=== PATIENT | female | born 1960 | race Caucasian/White ===

== ENCOUNTER 2020-06-05 11:24 | Inpatient (IN) | payer BC, SELFPAY ==
[2020-06-05] VITALS (85 sets, daily range): BP systolic 107–161; BP diastolic 65–104; PULSE 95–141; RESP 0–27; TEMP 36.6–37; O2SAT 94–100; BMI 21.7
--- NOTE | 2020-06-05 11:56 | XR_ITS ---
WS: [id number] Exam: XR chest 1V portable [id number] Date/Time of Exam: 06/05/2020 12:16 PM Reason For Exam: cp Comparison 08/26/2016. Findings: The lungs are clear and fully inflated. Normal cardiomediastinal structures and bony elements. XR/XR chest 1V portable [id number] IMPRESSION: 1. No acute cardiopulmonary finding.
--- NOTE | 2020-06-05 11:56 | ECG_ITS ---
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
--- NOTE | 2020-06-05 12:14 | ED_ITS ---
HPI - Arrhythmia/Palpitations General: Chief Complaint: Arrhythmia/Palpitations Stated Complaint: vomiting/headache/rash/high pulse Time Seen by Provider: 06/05/20 12:00 Source: patient Mode of arrival: ambulatory Limitations: no limitations History of Present Illness: HPI narrative: 60-year-old female who states she has been having vomiting for the last 3 days. States had a headache originally and the headache is since resolved. States she has had continued vomiting and is having abdominal cramping pain she rates a 5 out of 10. She states she has not been able to keep any food down and feels dehydrated. She is also had palpitations and does have a heart rate of 130s here. She denies any fever. She states she has had something similar in the past and had a urinary tract infection with had sepsis at the time as well. Denies any worsening or improving factors. She denies any fever or cough. Associated symptoms: Reports nausea and vomiting Review of Systems Const: Denies: fever(s), chills, body aches or change in appetite Eyes: Denies: blurry vision or eye discomfort ENMT: Denies: throat pain or dental pain Card: Reports: palpitations Resp: Denies: dyspnea GI: Reports: abdominal pain, nausea and vomiting : Denies: dysuria Musc: Denies: neck pain or back pain Skin/Breast: Denies: rash Neuro: Denies: headache(s) Psych: Denies: depression [place]/Lymph: Denies: easy bruising All/Imm: Denies: urticaria Physical Exam Const: COMMON NORMALS: patient oriented x3 GENERAL APPEARANCE: ill appearing HENMT: COMMON NORMALS: normocephalic and atraumatic HEAD & SCALP: normocephalic and atraumatic Eye: COMMON NORMALS: Equal, round and reactive pupils present and EOMs intact bilaterally PUPIL: Yes Equal, round and reactive pupils present Neck/C-Spine: COMMON NORMALS: full ROM and supple Chest: COMMONS NORMALS: normal inspection of the chest and normal palpation of entire chest wall Resp: COMMON NORMALS: normal respiratory effort, No retractions, No use of accessory muscles and clear to auscultation bilaterally AUSCULTATION: clear to auscultation bilaterally Cardio: COMMON NORMALS: regular rhythm and No murmurs present (Cardio) RATE: tachycardic RHYTHM: regular rhythm GI: COMMON NORMALS: Normal to inspection, nondistended, normoactive bowel sounds present, Soft to palpation and no masses PALPATION: Yes Soft to palpation OTHER: diffuse tenderness Extremity: COMMON NORMALS: normal to inspection and full ROM Neuro: COMMON NORMALS: patient oriented x3, moves all extremities and no focal motor deficits Psych: COMMON NORMALS: mental status grossly normal, Normal thought process present and cooperative THOUGHT PROCESS: Normal thought process present Skin: COMMON NORMALS: no rashes or lesions noted and no wounds GENERAL SKIN EXAM: no rashes or lesions noted Course Vital Signs: Vital signs: Vital Signs Temperature 98.2 F 06/05/20 11:54 Pulse Rate 137 H 06/05/20 11:54 Respiratory Rate 18 06/05/20 14:03 Blood Pressure 107/65 06/05/20 11:54 Pulse Oximetry 99 06/05/20 11:54 MDM - Arrhythmia/Palpitations MDM Narrative: Medical decision making narrative: Patient presents here with vomiting and is in DKA. Patient is quite dehydrated here. She has no signs of infection. Patient given IV fluids here and started on insulin drip. Spoke to hospitalist and will admit to the ICU. Lab Data: Labs: Lab Results 06/05/20 06/05/20 06/05/20 Range/Units 12:59 12:59 12:59 WBC 22.0 H (4.0-10.0) 10^3/ uL RBC 5.31 H (4.1-5.3) 10^6/u L Hgb 15.9 H (11.5-15.3) g/dL Hct 50.6 H (37.0-47.0) % MCV 95.3 (81-99) fL MCH 29.9 (28.0-34.0) pg MCHC 31.4 (30.0-36.0) g/dL RDW 12.7 (12.1-15.1) % Plt Count 460 H (130-400) 10^3/c mm MPV 13.4 H (7.4-10.4) fL Neut % (Auto) 90.9 % Lymph % (Auto) 2.8 % [facility] % (Auto) 5.2 % Eos % (Auto) 0.0 % Baso % (Auto) 0.2 % Neut # (Auto) 20.02 H (1.8-7.7) 10^3/u L Lymph # (Auto) 0.6 L (0.8-4.8) 10^3/u L [facility] # (Auto) 1.1 H (0.2-0.9) 10^3/u L Eos # (Auto) 0.0 (0.0-0.8) 10^3/u L Baso # (Auto) 0.0 (0.0-0.1) 10^3/u L Nucleated RBC % (a uto) 0 % Nucleated RBCs # 0.0 /100WBC Sodium 141 (136-145) mmol/L Potassium 4.0 (3.5-5.1) mmol/L Chloride 94 L (98-107) mmol/L Carbon Dioxide 8 L* (22-29) mmol/L Anion Gap 43.0 H (5-19) BUN 48 H (8-23) mg/dL Creatinine 1.5 H (0.5-0.9) mg/dL GFR Calculation 35.4 L (90-130) mL/min Glucose 640 H* (65-115) mg/dL Calculated Osmolal ity 335 H (285-295) mOsm/k g Calcium 10.5 (8.5-10.5) mg/dL Phosphorus 5.7 H (2.5-4.5) mg/dL Magnesium 3.0 H (1.7-2.3) mg/dL Total Bilirubin 0.2 (0.15-1.2) mg/dL AST 8 (0-32) U/L ALT 28 (0-33) U/L Alkaline Phosphata se 175 H (35-105) IU/L Total Protein 8.8 H (6.6-8.7) g/dL Albumin 4.5 (3.5-5.2) g/dL Globulin 4.3 (1.3-4.6) g/dL Lipase 23 (13-60) U/L Serum Ketones Positive H (Negative) Imaging Data^: CXR: Attestation: I personally reviewed and interpreted this imaging study as follows: Radiologist's impression: [address] [address] XRay Report Signed Patient: Madelyn Spencer Unit #: [id number] : 1960 Age/Sex: 60 / F ADM Date: 06/05/20 Loc: ER Room/Bed: Attending Dr: Ordering Provider/Ordering MD: Cristela Mendes MD Date of Service: 06/05/20 Procedure(s): XR chest 1V portable [id number] Accession Number(s): [id number] Report Number: [id number] WS: [id number] Exam: XR chest 1V portable [id number] Date/Time of Exam: 06/05/2020 12:16 PM Reason For Exam: cp Comparison 08/26/2016. Findings: The lungs are clear and fully inflated. Normal cardiomediastinal structures and bony elements. XR/XR chest 1V portable [id number] IMPRESSION: 1. No acute cardiopulmonary finding. Critical Care Time Critical Care Time: Critical Care Time: Yes Total Critical Care Time: 36 Attestation: This case had a high probability of a clinically significant, sudden, or life threatening deterioration of this patient's condition which required my full and direct attention, intervention and personal management. Discharge Plan Discharge Patient Disposition: Admitted As Inpatient Admit Provider: Fredo Mcnair Clinical Impression: Diabetic ketoacidosis Qualifiers: Diabetes mellitus complication detail: without coma Condition: Stable Referrals: Kayode Schilling DO [Family Provider] - Coding Level of Care Code ED Nuclear Equipment Research Engineer for Chg Fwd Exam Comprehensive
[2020-06-05] MEDS: ondansetron 2 mg/ML SDV 2 mL 4 MG IVP ×3 (13:15→23:38)
[2020-06-05 13:35] LABS: Alanine Aminotransferase 28 U/L (0-33); Albumin Level 4.5 g/dL (3.5-5.2); Alkaline Phosphatase 175 IU/L (35-105); Aspartate Amino Transferase 8 U/L (0-32); Blood Urea Nitrogen 48 mg/dL (8-23); Calcium 10.5 mg/dL (8.5-10.5); Chloride 94 mmol/L (98-107); Globulin 4.3 g/dL (1.3-4.6); Glomerular Filtration Rate 35.4 mL/min (90-130); Lipase 23 U/L (13-60); Osmolality Calculated 335 mOsm/kg (285-295); Sodium 141 mmol/L (136-145); Total Bilirubin 0.2 mg/dL (0.15-1.2); Total Protein 8.8 g/dL (6.6-8.7)
[2020-06-05 13:36] LABS: Basophils % 0.2 %; Hematocrit 50.6 % (37.0-47.0); Hemoglobin 15.9 g/dL (11.5-15.3); Lymphocytes # 0.6 10^3/uL (0.8-4.8); Lymphocytes % 2.8 %; Mean Corpuscular HGB Conc 31.4 g/dL (30.0-36.0); Mean Corpuscular Hemoglobin 29.9 pg (28.0-34.0); Mean Corpuscular Volume 95.3 fL (81-99); Mean Platelet Volume 13.4 fL (7.4-10.4); Monocytes # 1.1 10^3/uL (0.2-0.9); Monocytes % 5.2 %; Neutrophils # 20.02 10^3/uL (1.8-7.7); Neutrophils % 90.9 %; Nucleated Red Blood Cells % 0 %; Platelet Count 460 10^3/cmm (130-400); Red Blood Count 5.31 10^6/uL (4.1-5.3); Red Cell Distribution Width 12.7 % (12.1-15.1)
[2020-06-05 13:40] LABS: Glucose 640 mg/dL (65-115)
[2020-06-05 13:41] LABS: Carbon Dioxide 8 mmol/L (22-29)
[2020-06-05] MEDS: sodium chloride 0.9% 1,000 ML 999 ML IV ×3 (14:00→17:33)
[2020-06-05] MEDS: HYDROmorphone 1 mg/mL INJ 1 mL 0.5 MG IVP (14:03)
[2020-06-05 14:19] LABS: Ketone (Acetest) Serum Positive (Negative)
[2020-06-05 14:21] LABS: Arterial Blood Gas Hematocrit 47.8 % (37-47); Blood Gas Allen Test Pos; Blood Gas Operator Identificat GD; Blood Gas Sample Site Radial, right; Blood Gas Sample Type Arterial; HCO3 ABG 6.6 mmol/L (22-26); Oxygen Device ROOM AIR
[2020-06-05 14:24] LABS: Phosphorus 5.7 mg/dL (2.5-4.5)
--- NOTE | 2020-06-05 15:40 | PC.NURSE ---
TO ICU at 1500, VSS, Patient AAOx4, complains of generalized weakness, chills, n/v.
[2020-06-05 15:43] LABS: Add Urine Microscopic? YES; Bilirubin Urine Neg (Negative); Blood Urine 2+ (Negative); Glucose Urine UA 4+ (Normal); Ketones Urine 3+ (Negative); Leukocyte Esterase Urine Negative (Negative); Nitrate Urine Negative (Negative); Protein Urine Neg (Negative); Urine Appearance Hazy (CLEAR); Urine Color Yellow (Yellow); Urobilinogen Urine Norm (Negative); pH Urine 5 (5-7)
[2020-06-05 15:52] LABS: Add Urine Culture? No; Bacteria Urine TRACE /hpf; RBC Urine 0-4 /hpf (0-2)
[2020-06-05 16:16] LABS: Lactate (Lactic Acid level) 2.4 mmol/L (0.5-2.2)
[2020-06-05] MEDS: ondansetron 2 mg/ML SDV 2 mL 8 MG IVP (16:35)
[2020-06-05] MEDS: phenol oral Spray 177 mL 5 SPRAY MUCOUS MEM (17:32)
[2020-06-05] MEDS: heparin 5,000 unit/mL INJ 1 mL 5000 UNIT SUBCUT (17:33)
--- NOTE | 2020-06-05 18:04 | PM.HP ---
Providers/Chief Complaint Admitting Physician: Fredo Mcnair Chief Complaint: vomiting/headache/rash/high pulse History of Present Illness Madelyn Spencer is a 60 year old female With a past medical history significant for diabetes mellitus who is presenting to the hospital with 3 day history of nausea, vomiting and abdominal pain. Patient stated that she is unable to take any p.o. intake during this time. Denies any fevers however did note chills. Has been complaining of throat soreness primarily after emesis. Noted last a1c to be > 13%. Stated she was previously on insulin regimen however stopped taking this a few months ago. Patient's laboratory workup showed a WBC of 22.0, hemoglobin of 15.9, hematocrit of 50.6 and a platelet count of 460. sodium 141, potassium 4.0, chloride 94, bicarb 8, BUN 48 and creatinine of 1.5. Glucose was elevated at 640. patient's anion gap was 43.0. Lactic acid was elevated at 2.4. Phosphorus of 5.7 and magnesium of 3.0. AST of 8, ALT of 28 and alkaline phosphatase of 175. Lipase of 23. urinalysis showed positive ketones however negative for leukocyte esterase or nitrites. Serum ketones was positive. Arterial blood gases showed a pH of 7.20, pCO2 of 17, PO2 125 and a bicarb 6.6. Of note chest x-ray was also performed which did not show any evidence of acute abnormality.Patient was started on IV fluids in addition to IV insulin and admitted to the intensive care unit. Review of Systems General: Reports: 10 or more systems reviewed and unremarkable except in HPI and below Medications/Allergies Home Medications Medication Instructions Recorded Confirmed Last Taken Type Tylenol 2 cap PO PRN 06/05/20 06/05/20 06/04/20 History hydromorphone 8 mg PO Q4H PRN 06/05/20 06/05/20 06/04/20 History insulin detemir U-100 [Levemir See Rx Instructions .ROUTE .COMPLEX 06/05/20 06/05/20 Unknown History FlexTouch U-100 Insuln] ondansetron HCl [Zofran] 4 mg PO Q4H PRN 06/05/20 06/05/20 06/05/20 05:30 History Allergies Allergy/AdvReac Type Severity Reaction Status Date / Time morphine Allergy ADR-Nausea Verified 06/05/20 13:11 Vitals/I&O/Wt Last Vital Signs Temp 97.8 F 06/05/20 15:30 Pulse 141 H 06/05/20 16:30 Resp 15 06/05/20 16:30 BP 119/73 06/05/20 16:30 Pulse Ox 99 06/05/20 16:30 06/05/20 06/05/20 06/05/20 06:59 14:59 22:59 Intake Total 1000 / 1000 Output Total 600 / 600 Balance 400 / 400 Weight last 48 hrs Weight 52.163 kg Physical Exam Const: COMMON NORMALS: no limitations and alert GENERAL APPEARANCE: cooperative, comfortable and in distress (Due to nausea ) HENMT: COMMON NORMALS: normocephalic, atraumatic and hearing grossly normal bilaterally HEAD & SCALP: normal to inspection FACE & SINUS: normal facial exam NOSE: Normal external nose present Eye: COMMON NORMALS: Equal, round and reactive pupils present Neck/C-Spine: COMMON NORMALS: full ROM, no lymphadenopathy and supple Resp: COMMON NORMALS: normal respiratory effort, No retractions, No use of accessory muscles and clear to auscultation bilaterally Cardio: COMMON NORMALS: no JVD, regular rate, regular rhythm, S1 normal heart sound present and S2 normal heart sound present GI: COMMON NORMALS: Soft to palpation, non-tender, No hepatosplenomegaly present and no masses Psych: COMMON NORMALS: mental status grossly normal, Normal thought process present, cooperative, normal affect, speech normal, activity/motor behavior normal and denies hallucinations Data : 06/05/20 12:59 06/05/20 12:59 Micro: Microbiology 06/05/20 12:59 Blood Culture - Preliminary Blood SPECIMEN COLLECTED A&P Assessment and plan (1) Diabetic ketoacidosis: - PH - 7.20 , PCO2- 17, Bicarbonate 6.6 - Anion gap - 43.0 , Positive serum ketones - Continue insulin gtt per protocol - Q1hr Blood sugar checks - Check BMP Q4hr - Once Blood sugar < 250 change IVF to D5 0.45% at 100 cc/hr - add 20 meq of potassium if less than 3.5. - Give additional IVF bolus - Total 3 given - Check Magnesium in AM - Once anion gap closed - will transition to Insulin SQ - Remain NPO for now - WIll consult agricultural extension educator Status: Acute Qualifiers: Diabetes mellitus complication detail: without coma (2) Acute renal failure (ARF): - Creatinine 1.5 - Likely due to dehydration, pre-renal - Repeat BMP in AM - Monitor u/o Status: Acute (3) High anion gap metabolic acidosis: Management as noted above for DKA Status: Acute (4) Leukocytosis: - Likely reactive - Repeat BMP in am - UA and chest x-ray - negative - Blood culture x 2 - Monitor off abx unclear febrile or worsening Leukocytosis Status: Acute (5) Intractable nausea and vomiting: Zofran 4 mg IV Q6hr PRN for nausea If no improvement will ad reglan Status: Acute (6) Neuropathy associated with endocrine disorder: Not currently on any home meds Status: Acute (7) Non compliance w medication regimen: Stressed need to continue home regimen of insulin Status: Acute Attestations Medical Necessity Statement*: 60-year-old female admitted to the hospital and diabetic ketoacidosis requiring insulin drip. Anticipate over 2 midnights stay in hospital for treatment. Time Spent in Patient Care: Greater than 35 minutes Coding Level of Care Code Acute Gang Investigator for g Fwd Exam Comprehensive Diagnoses Diabetic ketoacidosis E11.10 Diabetes mellitus complication detail: without coma Acute renal failure (ARF) N17.9 High anion gap metabolic acidosis E87.2 Leukocytosis D72.829 Intractable nausea and vomiting R11.2 Neuropathy associated with endocrine disorder E34.9; G63 Non compliance w medication regimen Z91.14
[2020-06-05 18:29] LABS: Anion Gap 22.4 (5-19); Blood Urea Nitrogen 39 mg/dL (8-23); Calcium 9.3 mg/dL (8.5-10.5); Carbon Dioxide 14 mmol/L (22-29); Chloride 116 mmol/L (98-107); Glomerular Filtration Rate 45.8 mL/min (90-130); Glucose 262 mg/dL (65-115); Osmolality Calculated 326 mOsm/kg (285-295); Potassium 3.4 mmol/L (3.5-5.1); Sodium 149 mmol/L (136-145)
[2020-06-05 18:30] LABS: Glucose Point of Care 214 mg/dL (70-110)
[2020-06-05 18:30] LABS: Glucose Point of Care 421 mg/dL (70-110)
[2020-06-05 18:30] LABS: Glucose Point of Care 267 mg/dL (70-110)
[2020-06-05 18:30] LABS: Glucose Point of Care 465 mg/dL (70-110)
[2020-06-05] MEDS: famotidine 20 mg/2 mL INJ IVP (18:58)
[2020-06-05] MEDS: D5-NS 0.45% + KCL 20 mEq 20 MEQ/1,000 ML BAG 100 MEQ IV (18:58)
[2020-06-05 19:22] LABS: Glucose Point of Care 132 mg/dL (70-110)
--- NOTE | 2020-06-05 19:35 | PC.NURSE ---
Called and spoke with Dr Young, VO of Insulin drip to decrease to 4 units/hr due to significant decreased in accucheck
[2020-06-05 20:18] LABS: Glucose Point of Care 111 mg/dL (70-110)
--- NOTE | 2020-06-05 21:12 | PC.NURSE ---
Blood drawn, sent to lab, will draw again in 4 hours, Dr Ramachandran states to reduce insulin drip to 2 units per hour, leave D5 1/2NS with 20KCL at 100ml/hour
[2020-06-05 21:54] LABS: Anion Gap 16.4 (5-19); Blood Urea Nitrogen 28 mg/dL (8-23); Calcium 8.8 mg/dL (8.5-10.5); Carbon Dioxide 18 mmol/L (22-29); Chloride 120 mmol/L (98-107); Glomerular Filtration Rate 63.9 mL/min (90-130); Glucose 131 mg/dL (65-115); Osmolality Calculated 319 mOsm/kg (285-295); Potassium 3.4 mmol/L (3.5-5.1); Sodium 151 mmol/L (136-145)
--- NOTE | 2020-06-05 22:59 | PC.NURSE ---
Insulin Gtt stopped at this time as ordered by Dr. Ramachandran
[2020-06-05] MEDS: potassium chloride ER 10 mEq Tablet 40 MEQ PO (23:11)
[2020-06-05 23:45] LABS: Glucose Point of Care 172 mg/dL (70-110)
--- NOTE | 2020-06-05 23:55 | PC.NURSE ---
Called and spoke with Dr Ramachandran, states to continue infusion of D5 1/2NS with 20kcl at 30ml/hr with 4 units of Novolog subq, recheck blood sugar in one hour
[2020-06-06] VITALS (109 sets, daily range): BP systolic 117–174; BP diastolic 66–109; PULSE 83–129; RESP 0–34; TEMP 36.8–37.3; O2SAT 94–100
[2020-06-06] MEDS: acetaminophen 325 mg Tablet 650 MG PO (00:06)
[2020-06-06] MEDS: heparin 5,000 unit/mL INJ 1 mL 5000 UNIT SUBCUT ×3 (01:15→18:18)
[2020-06-06 01:44] LABS: Blood Urea Nitrogen 22 mg/dL (8-23); Carbon Dioxide 16 mmol/L (22-29); Chloride 119 mmol/L (98-107); Glomerular Filtration Rate 73.2 mL/min (90-130); Glucose 224 mg/dL (65-115); Osmolality Calculated 320 mOsm/kg (285-295); Sodium 150 mmol/L (136-145)
[2020-06-06 04:04] LABS: Basophils % 0.1 %; Hematocrit 45.1 % (37.0-47.0); Lymphocytes # 0.6 10^3/uL (0.8-4.8); Lymphocytes % 3.6 %; Mean Corpuscular Hemoglobin 29.7 pg (28.0-34.0); Mean Corpuscular Volume 95.8 fL (81-99); Mean Platelet Volume 12.4 fL (7.4-10.4); Monocytes # 0.9 10^3/uL (0.2-0.9); Monocytes % 5.7 %; Neutrophils # 14.29 10^3/uL (1.8-7.7); Neutrophils % 90.1 %; Nucleated Red Blood Cells % 0 %; Platelet Count 392 10^3/cmm (130-400); Red Blood Count 4.71 10^6/uL (4.1-5.3); Red Cell Distribution Width 12.8 % (12.1-15.1); White Blood Count 15.9 10^3/uL (4.0-10.0)
[2020-06-06 04:15] LABS: Alanine Aminotransferase 18 U/L (0-33); Albumin Level 3.7 g/dL (3.5-5.2); Alkaline Phosphatase 135 IU/L (35-105); Anion Gap 16.1 (5-19); Aspartate Amino Transferase 8 U/L (0-32); Blood Urea Nitrogen 21 mg/dL (8-23); Calcium 9.2 mg/dL (8.5-10.5); Carbon Dioxide 19 mmol/L (22-29); Chloride 120 mmol/L (98-107); Globulin 3.4 g/dL (1.3-4.6); Glomerular Filtration Rate 63.9 mL/min (90-130); Glucose 226 mg/dL (65-115); Osmolality Calculated 322 mOsm/kg (285-295); Potassium 4.1 mmol/L (3.5-5.1); Sodium 151 mmol/L (136-145); Total Bilirubin 0.3 mg/dL (0.15-1.2); Total Protein 7.1 g/dL (6.6-8.7)
[2020-06-06] MEDS: sodium chloride 0.45% 1,000 ML 50 ML IV (05:39)
[2020-06-06] MEDS: ondansetron 2 mg/ML SDV 2 mL 4 MG IVP ×2 (05:44→07:39)
--- NOTE | 2020-06-06 06:55 | PC.NURSE ---
Report given to SARAH Hill in SBAR format
[2020-06-06 07:27] LABS: Glucose Point of Care 185 mg/dL (70-110)
[2020-06-06] MEDS: famotidine 20 mg/2 mL INJ IVP ×2 (07:39→18:17)
[2020-06-06] MEDS: metoclopramide 5 mg/mL SDV 2 mL 10 MG IVP (10:30)
--- NOTE | 2020-06-06 10:41 | PC.NURSE ---
received report on pt that one bottle of cultures came back positive. This was reported to Dr. da silva who was on the floor at the time.
[2020-06-06 11:15] LABS: Glucose Point of Care 177 mg/dL (70-110)
[2020-06-06 11:15] LABS: Glucose Point of Care 109 mg/dL (70-110)
[2020-06-06 11:37] LABS: Glucose Point of Care 129 mg/dL (70-110)
--- NOTE | 2020-06-06 11:54 | CTR_ITS ---
PROCEDURE INFORMATION: Exam: CT Abdomen And Pelvis With Contrast Exam date and time: 06/06/2020 6:25 PM Age: 60 years old Clinical indication: Patient HX: Intractable abdominal pain nausea and vomiting. TECHNIQUE: Imaging protocol: Computed tomography of the abdomen and pelvis with intravenous contrast. Radiation optimization: All CT scans at this facility use at least one of these dose optimization techniques: automated exposure control; mA and/or kV adjustment per patient size (includes targeted exams where dose is matched to clinical indication); or iterative reconstruction. Contrast material: OMNI 300; Contrast volume: 75 ml; Contrast route: INTRAVENOUS (IV); COMPARISON: CR Hip 2-3v LEFT wwo Pelv* [id number] 03/05/2017 4:11 PM RADIATION DOSE METRICS: Total DLP (mGy-cm): 269.06 FINDINGS: Lungs: Limited assessment of the lung bases fails to reveal evidence for active cardiopulmonary process. Liver: Unremarkable. No mass. Gallbladder and bile ducts: Normal. No calcified stones. No ductal dilation. Pancreas: Marked atrophy of the pancreas. No visible pancreatic ductal ectasia. Spleen: Normal. No splenomegaly. Adrenal glands: Normal. No mass. Kidneys and ureters: Heterogenous contrast enhancement the right kidney suggest acute pyelonephritis. No visible renal abscess. Cortical scarring of both the superior poles of the left and right kidney. No visible hydronephrosis or perinephric fluid. Stomach and bowel: Mild diverticulosis coli without visible evidence of acute diverticulitis. Nonobstructive bowel pattern. No visible adynamic or reactive ileus. Appendix: No evidence of appendicitis. Intraperitoneal space: No visible evidence of mesenteric lymphadenitis or active mesenteritis/panniculitis. Vasculature: The abdominal aorta is nonaneurysmal. Moderate arterial sclerotic disease. Lymph nodes: No current visible evidence of active mesenteric or retroperitoneal lymphadenopathy. Urinary bladder: Marked diffuse urinary bladder wall thickening with mucosal enhancement. No gross filling defect. Finding would be consistent with acute cystitis. Reproductive: Status post hysterectomy. Bones/joints: Old compression fracture T12 with estimated 30-40% anterior height loss. No acute osseous abnormality. Facet arthrosis. Soft tissues: Unremarkable. CT/CT abdomen pelvis w con* [id number] IMPRESSION: 1. Findings consistent with acute right pyelonephritis. 2. Findings consistent with acute cystitis. 3. Other nonurgent, nonemergent, chronic, and age related findings as detailed in text above. Radiation Dose CTDIVOL = (mGy): DLP = 269.06 (mGy-cm)
[2020-06-06 12:13] LABS: Alanine Aminotransferase 17 U/L (0-33); Albumin Level 3.8 g/dL (3.5-5.2); Alkaline Phosphatase 140 IU/L (35-105); Anion Gap 22.7 (5-19); Aspartate Amino Transferase 12 U/L (0-32); Blood Urea Nitrogen 17 mg/dL (8-23); Carbon Dioxide 16 mmol/L (22-29); Chloride 114 mmol/L (98-107); Globulin 3.8 g/dL (1.3-4.6); Glucose 154 mg/dL (65-115); Osmolality Calculated 313 mOsm/kg (285-295); Potassium 3.7 mmol/L (3.5-5.1); Sodium 149 mmol/L (136-145); Total Bilirubin 0.3 mg/dL (0.15-1.2); Total Protein 7.6 g/dL (6.6-8.7)
--- NOTE | 2020-06-06 12:17 | PC.NURSE ---
messaged Dr Mcnair regarding pt hypo bowel sounds, complaints of abdominal pain and she states that she is not passing gas. Also asked if he wants records from [facility] from her last septic stay. New orders received.
[2020-06-06] MEDS: dextrose 5% 1,000 ML 75 ML IV (12:37)
[2020-06-06] MEDS: metoprolol tartrate 25 mg Tablet PO ×2 (13:15→18:18)
[2020-06-06] MEDS: cefTRIAXone 2,000 MG in sodium chloride 0.9% (plus) 50 ML 100 MG IV (13:52)
--- NOTE | 2020-06-06 14:41 | P.PN_ITS ---
Subjective Subjective: Interval history: Continued to have nausea through out the day with abdominal pain. No fever, chills, nausea or vomiting. no diarrhea or constipation Vitals/I&O/Wt Last Vital Signs Temp 98.8 F 06/06/20 11:30 Pulse 120 H 06/06/20 13:30 Resp 22 H 06/06/20 13:30 BP 161/94 06/06/20 13:30 Pulse Ox 98 06/06/20 13:30 06/05/20 06/06/20 06/06/20 22:59 06:59 14:59 Intake Total 3632.333 / 3632.333 280 / 280 Output Total 1325 / 1325 560 / 560 Balance 2307.333 / 2307.333 -280 / -280 Weight last 48 hrs Weight 52.163 kg Physical Exam Const: COMMON NORMALS: no limitations and alert GENERAL APPEARANCE: cooperative, comfortable and in distress (Due to nausea ) HENMT: COMMON NORMALS: normocephalic, atraumatic, hearing grossly normal bilaterally and Normal external nose present HEAD & SCALP: normal to inspection, normocephalic and atraumatic FACE & SINUS: normal facial exam NOSE: Normal external nose present Eye: COMMON NORMALS: Equal, round and reactive pupils present PUPIL: Yes Equal, round and reactive pupils present Neck/C-Spine: COMMON NORMALS: full ROM, no lymphadenopathy, supple and no JVD Resp: COMMON NORMALS: normal respiratory effort, No retractions, No use of accessory muscles and clear to auscultation bilaterally AUSCULTATION: clear to auscultation bilaterally Cardio: COMMON NORMALS: no JVD, regular rate, regular rhythm, S1 normal heart sound present and S2 normal heart sound present RATE: regular rate RHYTHM: regular rhythm HEART SOUNDS: S1 normal heart sound present and S2 normal heart sound present GI: COMMON NORMALS: Soft to palpation, non-tender, No hepatosplenomegaly present and no masses PALPATION: Yes Soft to palpation and Yes No hepatosplenomegaly present Neuro: SENSORIUM/ORIENTATION: Yes alert Psych: COMMON NORMALS: mental status grossly normal, Normal thought process present, cooperative, normal affect, speech normal, activity/motor behavior normal and denies hallucinations SPEECH: Yes normal speech THOUGHT PROCESS: Normal thought process present Data : 06/06/20 03:30 06/06/20 17:30 Micro: Microbiology 06/06/20 11:27 Blood Culture - Preliminary Blood SPECIMEN COLLECTED 06/06/20 11:33 Blood Culture - Preliminary Blood SPECIMEN COLLECTED 06/05/20 17:55 Blood Culture - Preliminary Blood Gram Negative Rods 06/05/20 12:59 Blood Culture - Preliminary Blood Gram Negative Rods A&P Assessment and plan (1) Diabetic ketoacidosis: - Anion gap closed - Long acting insulin given - Transitioned to SQ insulin - ACHS checks - A1c in Am - Diabetic diet Status: Acute Qualifiers: Diabetes mellitus complication detail: without coma (2) Acute renal failure (ARF): Resolved Status: Acute (3) High anion gap metabolic acidosis: Resolved. Status: Acute (4) Leukocytosis: - Blood culture 1/2 set showed gram negative rods - On Rocephin 2g IV daily - Repeat blood culture in am - Leukocytosis improving. Status: Acute (5) Intractable nausea and vomiting: Radha undiagnosed gastroparesis Reglan PRN - may consider scheduling doses with meals Due to abdominal pian - will obtain CT abd/pelvis w IV contrast Patient unable to tolerate PO contrast Status: Acute (6) Neuropathy associated with endocrine disorder: Not currently on any home meds Status: Acute (7) Non compliance w medication regimen: Stressed need to continue home regimen of insulin Status: Acute Attestations Medical Necessity Statement*: Patient with intractable nausea, abdominal pain and resolving DKA will require further hospitalization for management. Coding Level of Care Code Acute Family Law Attorney for g Fwd Diagnoses Diabetic ketoacidosis E11.10 Diabetes mellitus complication detail: without coma Acute renal failure (ARF) N17.9 High anion gap metabolic acidosis E87.2 Leukocytosis D72.829 Intractable nausea and vomiting R11.2 Neuropathy associated with endocrine disorder E34.9; G63 Non compliance w medication regimen Z91.14
[2020-06-06 15:18] LABS: Glucose Point of Care 235 mg/dL (70-110)
[2020-06-06 15:18] LABS: Glucose Point of Care 147 mg/dL (70-110)
--- NOTE | 2020-06-06 15:51 | PC.NURSE ---
Pt requesting something for her nerves Dr. Mcnair notified. States he will put orders in.
[2020-06-06 16:15] LABS: Glucose Point of Care 124 mg/dL (70-110)
--- NOTE | 2020-06-06 16:58 | PC.NURSE ---
MEssaged Dr. Mcnair to ask if she could do her CT of abdomen without contrast do to her being to nauseated.
--- NOTE | 2020-06-06 17:21 | PC.NURSE ---
New order for CT to be done with IV contrast. STaff attempted to call CT, no answer.
[2020-06-06 17:46] LABS: Glucose Point of Care 118 mg/dL (70-110)
[2020-06-06 17:56] LABS: Anion Gap 16.4 (5-19); Blood Urea Nitrogen 13 mg/dL (8-23); Calcium 9.2 mg/dL (8.5-10.5); Carbon Dioxide 20 mmol/L (22-29); Chloride 111 mmol/L (98-107); Glucose 136 mg/dL (65-115); Osmolality Calculated 300 mOsm/kg (285-295); Potassium 3.4 mmol/L (3.5-5.1); Sodium 144 mmol/L (136-145)
[2020-06-06 18:27] LABS: Glucose Point of Care 173 mg/dL (70-110)
[2020-06-06] MEDS: iohexol 300 mg/mL 100 mL Btl IV (18:51)
[2020-06-06] MEDS: insulin glargine 100 units/1 mL 5 UNIT SUBCUT (19:15)
[2020-06-06] MEDS: potassium chloride premix 100 ML 50 MEQ IV (19:22)
[2020-06-06] MEDS: sodium chloride 0.45% 1,000 ML 75 ML IV (19:23)
[2020-06-06] MEDS: ALPRAZolam 0.25 mg Tablet PO (20:07)
[2020-06-06 21:20] LABS: Glucose Point of Care 225 mg/dL (70-110)
[2020-06-07] VITALS (8 sets, daily range): BP systolic 120–179; BP diastolic 80–115; PULSE 81–116; RESP 14–22; TEMP 36.8–37.7; O2SAT 93–98
--- NOTE | 2020-06-07 00:56 | PC.NURSE ---
Patient SBP has maintained from 160's-170's within the last couple of hours. MD Madie maxillofacial surgeon notified. New v/o for Metoprolol IVP ONCE given, with recheck BP in 1Hr.
[2020-06-07] MEDS: heparin 5,000 unit/mL INJ 1 mL 5000 UNIT SUBCUT ×4 (01:04→22:56)
[2020-06-07] MEDS: metoprolol tartrate 1 mg/1 mL SDV 5 mL 2.5 MG IV (01:09)
[2020-06-07] MEDS: amlodipine 5 mg Tablet PO ×2 (02:10→08:43)
--- NOTE | 2020-06-07 02:30 | PC.NURSE ---
Patient Transferred to C[facility] Rm 106, by wheelchair. Tolerated well. Personal belongings at bedside. Report given to SARAH House Patient verbalized no further needs at this time.
[2020-06-07] MEDS: metoclopramide 5 mg/mL SDV 2 mL 10 MG IVP (02:33)
--- NOTE | 2020-06-07 02:38 | PC.NURSE ---
Patient received from ICU via wheelchair. Patient able to ambulate to bed with minimal assistance. Applied telemetry as ordered. Patient c/o nausea with gagging at this time. No emesis presently. Provided tub per patient request. Administered Reglan as ordered. Assessment completed as documented.
[2020-06-07 05:44] LABS: Alanine Aminotransferase 18 U/L (0-33); Albumin Level 3.3 g/dL (3.5-5.2); Alkaline Phosphatase 205 IU/L (35-105); Anion Gap 18.2 (5-19); Aspartate Amino Transferase 16 U/L (0-32); Blood Urea Nitrogen 10 mg/dL (8-23); Calcium 9.1 mg/dL (8.5-10.5); Carbon Dioxide 19 mmol/L (22-29); Chloride 107 mmol/L (98-107); Globulin 3.4 g/dL (1.3-4.6); Glucose 180 mg/dL (65-115); Osmolality Calculated 296 mOsm/kg (285-295); Potassium 3.2 mmol/L (3.5-5.1); Sodium 141 mmol/L (136-145); Total Bilirubin 0.4 mg/dL (0.15-1.2); Total Protein 6.7 g/dL (6.6-8.7)
[2020-06-07] MEDS: famotidine 20 mg/2 mL INJ IVP ×2 (06:12→20:22)
[2020-06-07 06:46] LABS: Glucose Point of Care 190 mg/dL (70-110)
--- NOTE | 2020-06-07 07:46 | PC.NURSE ---
Dr anderson on unit for assessment and POC; verbal instruction to stop IV fluids
[2020-06-07] MEDS: metoclopramide 10 mg Tablet 5 MG PO ×3 (07:55→22:56)
[2020-06-07] MEDS: metoprolol tartrate 25 mg Tablet PO ×2 (08:43→17:34)
--- NOTE | 2020-06-07 08:46 | PC.NURSE ---
Dr. Alvarez at bedside for assessment and discussion of POC instructions to order GI soft diet
[2020-06-07] MEDS: lidocaine 1% 5 ML in potassium chloride premix 100 ML 25 ML IV (09:17)
[2020-06-07 10:58] LABS: Glucose Point of Care 91 mg/dL (70-110)
--- NOTE | 2020-06-07 11:19 | PC.NURSE ---
Dr. Alvarez notified of first dose of antibiotics will be a late administration due to the infusion of potassium at this time okayed for late administration
--- NOTE | 2020-06-07 13:24 | P.PN_ITS ---
Subjective Subjective: Interval history: Overnight patient continued to have low-grade fevers, nausea, no lightheadedness, dizziness, no chest pain, shortness of breath, is feeling better, she has gram-negative bacteremia secondary to right pyelonephritis, repeat blood cultures positive, will expand antibiotic coverage, she tells me that she is grown E. coli in her urine in the past, this is anderson ppened in the past when she was admitted in [place] Vitals/I&O/Wt Last Vital Signs Temp 99.7 F H 06/07/20 10:38 Pulse 104 H 06/07/20 10:38 Resp 22 H 06/07/20 10:38 BP 126/91 06/07/20 10:38 Pulse Ox 94 06/07/20 10:38 06/06/20 06/07/20 06/07/20 22:59 06:59 14:59 Intake Total 961.25 / 1241.25 0 / 1241.25 1240 / 1240 Balance 961.25 / 681.25 0 / 681.25 1240 / 1240 Physical Exam Const: COMMON NORMALS: no acute distress and patient oriented x3 HENMT: COMMON NORMALS: normocephalic HEAD & SCALP: normocephalic Neck/C-Spine: COMMON NORMALS: no JVD Resp: COMMON NORMALS: normal respiratory effort, No retractions, No use of accessory muscles and clear to auscultation bilaterally AUSCULTATION: clear to auscultation bilaterally Cardio: COMMON NORMALS: no JVD, regular rate, regular rhythm, S1 normal heart sound present and S2 normal heart sound present RATE: regular rate RHYTHM: regular rhythm HEART SOUNDS: S1 normal heart sound present and S2 normal heart sound present GI: COMMON NORMALS: Normal to inspection, nondistended, normoactive bowel sounds present, Soft to palpation, non-tender, No hepatosplenomegaly present, no masses and no bruits PALPATION: Yes Soft to palpation and Yes No hepatosplenomegaly present Extremity: COMMON NORMALS: capillary refill normal, no clubbing, cyanosis or edema, no calf tenderness and no pedal edema Neuro: COMMON NORMALS: patient oriented x3 Psych: COMMON NORMALS: mental status grossly normal Data : 06/06/20 03:30 06/07/20 04:45 Micro: Microbiology 06/06/20 11:27 Blood Culture - Preliminary Blood Gram Negative Rods 06/06/20 11:33 Blood Culture - Preliminary Blood Gram Negative Rods 06/05/20 17:55 Blood Culture - Preliminary Blood Gram Negative Rods 06/05/20 12:59 Blood Culture - Preliminary Blood Gram Negative Rods A&P Assessment and plan (1) Diabetic ketoacidosis: - Anion gap closed - Long acting insulin given - Transitioned to SQ insulin - ACHS checks - Diabetic diet Status: Acute Qualifiers: Diabetes mellitus complication detail: without coma (2) Acute renal failure (ARF): Resolved Status: Acute (3) High anion gap metabolic acidosis: Resolved. Status: Acute (4) Leukocytosis: - Blood culture 1/2 set showed gram negative rods - On Rocephin 2g IV daily - Repeat blood culture in am - Leukocytosis improving. Status: Acute (5) Intractable nausea and vomiting: Likley undiagnosed gastroparesis Reglan PRN - may consider scheduling doses with meals Due to abdominal pian - will obtain CT abd/pelvis w IV contrast Patient unable to tolerate PO contrast Status: Acute (6) Neuropathy associated with endocrine disorder: Not currently on any home meds Status: Acute (7) Non compliance w medication regimen: Stressed need to continue home regimen of insulin Status: Acute (8) Pyelonephritis of right kidney: -Right pyelonephritis with gram-negative bacteremia, sepsis -First set of blood cultures positive for gram-negative rods -Second set of blood cultures positive for gram-negative rods -Patient has been on Rocephin since admission -Has tachycardia, low-grade fevers, no hypotensive episodes -We will stop Rocephin, expand antibiotic coverage Primaxin -Monitor hemodynamics closely, monitor blood pressures closely Status: Acute (9) Gram-negative bacteremia: Status: Acute (10) Sepsis: Status: Acute Attestations Medical Necessity Statement*: Patient requires hospitalization, inpatient for diabetic ketoacidosis, right pyelonephritis with sepsis Coding Level of Care Code 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
--- NOTE | 2020-06-07 15:14 | PC.OT ---
OT Note: Patient requested to hold off on therapy today. Will attempt again tomorrow as able.
[2020-06-07 15:55] LABS: Glucose Point of Care 199 mg/dL (70-110)
--- NOTE | 2020-06-07 18:05 | PC.NURSE ---
Dr anderson on unit to speak with family spoke with him about patient's antibiotic therapy timing due to first dose administraion being late due to infusion of potassium verbal instructions to re-time medication for Q8H starting at time of first administration.
[2020-06-07 20:04] LABS: Glucose Point of Care 159 mg/dL (70-110)
[2020-06-07] MEDS: insulin glargine 100 units/1 mL 5 UNIT SUBCUT (20:44)
[2020-06-07] MEDS: acetaminophen-codeine 120-12 mg/5 mL UDC PO (21:18)
[2020-06-08] VITALS (24 sets, daily range): BP systolic 94–137; BP diastolic 58–83; PULSE 79–103; RESP 5–23; TEMP 36.3–37.1; O2SAT 94–97
[2020-06-08] MEDS: ALPRAZolam 0.25 mg Tablet PO ×2 (03:09→20:46)
[2020-06-08] MEDS: famotidine 20 mg/2 mL INJ IVP (05:29)
[2020-06-08 05:44] LABS: Basophils % 0.3 %; Eosinophils % 0.1 %; Hematocrit 43.8 % (37.0-47.0); Hemoglobin 14.1 g/dL (11.5-15.3); Lymphocytes # 1.7 10^3/uL (0.8-4.8); Mean Corpuscular HGB Conc 32.2 g/dL (30.0-36.0); Mean Corpuscular Hemoglobin 29.4 pg (28.0-34.0); Mean Corpuscular Volume 91.4 fL (81-99); Mean Platelet Volume 12.6 fL (7.4-10.4); Monocytes # 0.8 10^3/uL (0.2-0.9); Monocytes % 8.6 %; Neutrophils # 7.03 10^3/uL (1.8-7.7); Neutrophils % 72.7 %; Nucleated Red Blood Cells % 0 %; Platelet Count 332 10^3/cmm (130-400); Red Blood Count 4.79 10^6/uL (4.1-5.3); Red Cell Distribution Width 12.2 % (12.1-15.1); White Blood Count 9.7 10^3/uL (4.0-10.0)
--- NOTE | 2020-06-08 05:53 | PC.NURSE ---
Administered imipenem-cilastin as ordered. IV to left upper arm immediately infiltrated. Stopped IV and discontinued site. Applied coban and 2x2 to site. Made attempts x2 to gain iv access without success. Patient tolerated all well. SARAH Benavides from ICU in to attempted IV access at this time.
[2020-06-08 06:11] LABS: Alanine Aminotransferase 13 U/L (0-33); Albumin Level 3.3 g/dL (3.5-5.2); Alkaline Phosphatase 112 IU/L (35-105); Anion Gap 16.1 (5-19); Aspartate Amino Transferase 10 U/L (0-32); Blood Urea Nitrogen 12 mg/dL (8-23); C Reactive Protein 43.9 mg/L (0.0-4.9); Calcium 8.9 mg/dL (8.5-10.5); Carbon Dioxide 23 mmol/L (22-29); Chloride 104 mmol/L (98-107); Globulin 3.2 g/dL (1.3-4.6); Glomerular Filtration Rate 125.9 mL/min (90-130); Glucose 202 mg/dL (65-115); Osmolality Calculated 296 mOsm/kg (285-295); Phosphorus 1.9 mg/dL (2.5-4.5); Potassium 3.1 mmol/L (3.5-5.1); Sodium 140 mmol/L (136-145); Total Bilirubin 0.3 mg/dL (0.15-1.2); Total Protein 6.5 g/dL (6.6-8.7)
[2020-06-08 06:13] LABS: Procalcitonin 0.74 ng/mL (0-0.5)
[2020-06-08 06:48] LABS: Glucose Point of Care 216 mg/dL (70-110)
[2020-06-08] MEDS: metoclopramide 10 mg Tablet 5 MG PO ×3 (07:49→23:40)
[2020-06-08] MEDS: lidocaine 1% 5 ML in potassium chloride premix 100 ML 25 ML IV (08:28)
[2020-06-08] MEDS: heparin 5,000 unit/mL INJ 1 mL 5000 UNIT SUBCUT ×3 (08:29→23:40)
[2020-06-08] MEDS: metoprolol tartrate 25 mg Tablet PO ×2 (08:29→17:32)
[2020-06-08] MEDS: amlodipine 5 mg Tablet PO (08:29)
--- NOTE | 2020-06-08 10:20 | PC.NURSE ---
Patient reports pain in throat while swallowing during meals. Patient states that the tylenol [address] Alvarez notified during Heart to heart rounds. Physician to put in order.
[2020-06-08 11:40] LABS: Glucose Point of Care 155 mg/dL (70-110)
--- NOTE | 2020-06-08 12:15 | P.PN_ITS ---
Subjective Subjective: Interval history: Patient was sitting up in bed this morning, she still complaining of a sore throat, appetite is picking up, afebrile for last 24 hours, overall she is getting better Vitals/I&O/Wt Last Vital Signs Temp 97.3 F L 06/08/20 12:00 Pulse 91 06/08/20 12:00 Resp 18 06/08/20 12:00 BP 108/71 06/08/20 12:00 Pulse Ox 96 06/08/20 12:00 06/07/20 06/08/20 06/08/20 22:59 06:59 14:59 Intake Total 100 / 1440 73.333 / 1513.333 105 / 105 Balance 100 / 1440 73.333 / 1513.333 105 / 105 Physical Exam Const: COMMON NORMALS: no acute distress and patient oriented x3 HENMT: COMMON NORMALS: normocephalic HEAD & SCALP: normocephalic Neck/C-Spine: COMMON NORMALS: no JVD Resp: COMMON NORMALS: normal respiratory effort, No retractions, No use of accessory muscles and clear to auscultation bilaterally AUSCULTATION: clear to auscultation bilaterally Cardio: COMMON NORMALS: no JVD, regular rate, regular rhythm, S1 normal heart sound present and S2 normal heart sound present RATE: regular rate RHYTHM: regular rhythm HEART SOUNDS: S1 normal heart sound present and S2 normal heart sound present GI: COMMON NORMALS: Normal to inspection, nondistended, normoactive bowel sounds present, Soft to palpation, non-tender, No hepatosplenomegaly present, no masses and no bruits PALPATION: Yes Soft to palpation and Yes No hepatosplenomegaly present Extremity: COMMON NORMALS: capillary refill normal, no clubbing, cyanosis or edema, no calf tenderness and no pedal edema Neuro: COMMON NORMALS: patient oriented x3 Psych: COMMON NORMALS: mental status grossly normal Data : 06/08/20 04:33 06/08/20 04:33 Micro: Microbiology 06/05/20 17:55 Blood Culture - Preliminary Blood Klebsiella pneumoniae 06/06/20 11:33 Blood Culture - Preliminary Blood Gram Negative Rods 06/05/20 12:59 Blood Culture - Preliminary Blood Gram Negative Rods Gram Negative Rods#2 06/06/20 11:27 Blood Culture - Preliminary Blood Gram Negative Rods A&P Assessment and plan (1) Diabetic ketoacidosis: - Anion gap closed - Long acting insulin given - Transitioned to SQ insulin - ACHS checks - Diabetic diet Status: Acute Qualifiers: Diabetes mellitus complication detail: without coma (2) Acute renal failure (ARF): Resolved Status: Acute (3) High anion gap metabolic acidosis: Resolved. Status: Acute (4) Leukocytosis: - Blood culture 1/2 set showed gram negative rods - On Rocephin 2g IV daily - Repeat blood culture in am - Leukocytosis improving. Status: Acute (5) Intractable nausea and vomiting: Radha undiagnosed gastroparesis Reglan PRN - may consider scheduling doses with meals Due to abdominal pian - will obtain CT abd/pelvis w IV contrast Patient unable to tolerate PO contrast Status: Acute (6) Neuropathy associated with endocrine disorder: Not currently on any home meds Status: Acute (7) Non compliance w medication regimen: Stressed need to continue home regimen of insulin Status: Acute (8) Pyelonephritis of right kidney: -Right pyelonephritis with gram-negative bacteremia, sepsis -First set of blood cultures positive for gram-negative rods -Second set of blood cultures positive for gram-negative rods -Patient has been on Rocephin since admission, this was stopped yesterday, antibiotic coverage broadened to Primaxin as she continued to have fevers -Has tachycardia, afebrile for the last 24 hours, no hypotensive episodes -Monitor hemodynamics closely, monitor blood pressures closely -Follow culture results Status: Acute (9) Gram-negative bacteremia: Status: Acute (10) Sepsis: Status: Acute Additional A&P Information Sore throat, likely secondary to acid reflux and retching, Esophagitis, related to retching Attestations Medical Necessity Statement*: Patient requires hospitalization, for gram- negative bacteremia secondary to right pyelonephritis, Coding Level of Care Code 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
[2020-06-08] MEDS: acetaminophen-codeine 120-12 mg/5 mL UDC PO ×2 (12:21→20:54)
[2020-06-08 17:20] LABS: Glucose Point of Care 303 mg/dL (70-110)
[2020-06-08] MEDS: famotidine 20 mg Tablet PO (17:32)
--- NOTE | 2020-06-08 19:33 | PC.NURSE ---
Patient had uneventful shift. became tearful at times, stating she just felt overwhelmed and tired, patient comforted by nurse. No further needs identified at this time.
--- NOTE | 2020-06-08 20:04 | PC.NURSE ---
Received report from Tabitha Foster. Patient resting in bed. AAOx4. Patient's voice continues to be hoarse. Patient reports multiple episodes of vomiting a couple days prior to admission. Discussed medications Tylenol #3, Xanax, Reglan, Pepcid. Patient verbalized understanding. Patient denies any diarrhea or emesis today reporting to feel some better. Patient also denies any pain or other needs presently. No distress observed.
[2020-06-08 20:07] LABS: Glucose Point of Care 128 mg/dL (70-110)
[2020-06-08] MEDS: insulin glargine 100 units/1 mL 5 UNIT SUBCUT (20:46)
--- NOTE | 2020-06-08 20:56 | PC.NURSE ---
Patient resting in bed watching TV. Administered medications as ordered. Patient stated, just in time. Reports throat starting to hurt again. Instructed patient on medications. Patient verbalized understanding. Provide ice water per patient request. No distress observed.
--- NOTE | 2020-06-08 22:24 | NUR.SHIFT ---
Patient resting with eyes closed. Even, non-labored respirations observed. No indication of nausea present at this time. No other distress observed .
--- NOTE | 2020-06-08 23:47 | PC.NURSE ---
Patient awake AAOx3. Patient reporting feeling well. Medication given as ordered. Patient requesting Heparin early so she can sleep tonight. Patient denies needs or pain. No distress observed.
[2020-06-09] VITALS (36 sets, daily range): BP systolic 93–114; BP diastolic 60–77; PULSE 74–110; RESP 0–31; TEMP 36.7–37.1; O2SAT 91–98
--- NOTE | 2020-06-09 01:41 | PC.NURSE ---
Patient resting in bed with eyes closed, No distress observed.
[2020-06-09] MEDS: famotidine 20 mg Tablet PO (05:17)
[2020-06-09 06:03] LABS: Lactic Sepsis W/Reflex 1.2 mmol/L (0.5-2.2)
[2020-06-09 06:06] LABS: Alanine Aminotransferase 11 U/L (0-33); Albumin Level 3.1 g/dL (3.5-5.2); Alkaline Phosphatase 104 IU/L (35-105); Blood Urea Nitrogen 8 mg/dL (8-23); Calcium 8.7 mg/dL (8.5-10.5); Carbon Dioxide 24 mmol/L (22-29); Chloride 105 mmol/L (98-107); Globulin 3.2 g/dL (1.3-4.6); Glomerular Filtration Rate 125.9 mL/min (90-130); Glucose 150 mg/dL (65-115); Magnesium 2.1 mg/dL (1.7-2.3); Osmolality Calculated 291 mOsm/kg (285-295); Sodium 140 mmol/L (136-145); Total Bilirubin 0.3 mg/dL (0.15-1.2); Total Protein 6.3 g/dL (6.6-8.7)
[2020-06-09 06:20] LABS: Anion Gap 14.4 (5-19); Aspartate Amino Transferase 13 U/L (0-32); Potassium 3.4 mmol/L (3.5-5.1)
[2020-06-09 06:27] LABS: Glucose Point of Care 123 mg/dL (70-110)
[2020-06-09] MEDS: metoclopramide 10 mg Tablet 5 MG PO ×2 (07:47→16:14)
[2020-06-09] MEDS: acetaminophen-codeine 120-12 mg/5 mL UDC PO ×2 (08:07→16:14)
[2020-06-09 08:28] LABS: Procalcitonin 0.42 ng/mL (0-0.5)
[2020-06-09] MEDS: metoprolol tartrate 25 mg Tablet PO ×2 (08:47→17:43)
[2020-06-09] MEDS: amlodipine 5 mg Tablet PO (08:47)
[2020-06-09] MEDS: heparin 5,000 unit/mL INJ 1 mL 5000 UNIT SUBCUT ×2 (08:47→17:43)
[2020-06-09 09:37] LABS: C Reactive Protein 22.7 mg/L (0.0-4.9)
[2020-06-09] MEDS: predniSONE 20 mg Tablet PO (10:08)
[2020-06-09] MEDS: pantoprazole DR 40 mg Tablet PO ×2 (10:08→17:43)
[2020-06-09 11:17] LABS: Glucose Point of Care 156 mg/dL (70-110)
--- NOTE | 2020-06-09 12:02 | PC.CHAP ---
Pastoral Care Encounter/Spiritual Assessment Type of Contact [] Declined adult nurse practitioner visit [] Patient/Family/Request visit [] Outpatient visit [] Follow-up visit [] Physician referral [] Code/Alert [] Routine visit [] Staff referral [] Actively dying [] Patient sleeping [] Family support [] [] Out of room [] Palliative care [] [X] Receiving care in room [] Pre-surgical visit [] Trauma [] Long length of stay [] ICU visit [] Other: Relational/Emotional Strength [] Patient feels connected with others/family/visitors/staff [] Distress [] Loneliness/isolation [] Abandonment Spirituality of Patient [] Person of Monique [] Attends Gnosticism of their Monique [] Believes in Prayer [] Reads Bible or Anglican materials [] There are Spiritual issues to be addressed 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 [] Prayer [] Active listening [] Non-anxious presence [] Spiritual/emotional support [] Crisis/trauma care [] Spiritual counseling [] Bereavement support [] Provided bereavement packet [] Provided Bible/devotional materials [] Provided toy/stuffed animal, coloring book to patient or family member [] Provided Communion [] Anointing/[place] [] Salvation [] Completed spiritual assessment [] Other: Impact on Illness or Injury [] Angry [] Fearful [] Anxious [] Often cries [] Exhaustion [] Unable to work [] Unable to attend samaritan [] Unable to walk/stand [] Unable to read [] Unable to drive [] Unable to eat/drink [] Unable to sleep [] Unable to be with family [] Patient intubated [] Other: Summary Time spent with patient
--- NOTE | 2020-06-09 13:42 | P.PN_ITS ---
Subjective Subjective: Interval history: Patient is doing well this morning, continues to have some sore throat, improved with Tylenol with codeine, has some lower esophageal discomfort, burning sensation, overall doing better, still has some degree of a poor appetite Vitals/I&O/Wt Last Vital Signs Temp 98.3 F 06/09/20 11:20 Pulse 76 06/09/20 11:20 Resp 15 06/09/20 11:20 BP 108/60 06/09/20 11:20 Pulse Ox 97 06/09/20 11:20 06/08/20 06/09/20 06/09/20 22:59 06:59 14:59 Intake Total 800 / 1145 100 / 1245 100 / 100 Balance 800 / 1145 100 / 1245 100 / 100 Physical Exam Const: COMMON NORMALS: no acute distress and patient oriented x3 HENMT: COMMON NORMALS: normocephalic HEAD & SCALP: normocephalic Neck/C-Spine: COMMON NORMALS: no JVD Resp: COMMON NORMALS: normal respiratory effort, No retractions, No use of accessory muscles and clear to auscultation bilaterally AUSCULTATION: clear to auscultation bilaterally Cardio: COMMON NORMALS: no JVD, regular rate, regular rhythm, S1 normal heart sound present and S2 normal heart sound present RATE: regular rate RHYTHM: regular rhythm HEART SOUNDS: S1 normal heart sound present and S2 normal heart sound present GI: COMMON NORMALS: Normal to inspection, nondistended, normoactive bowel soun ds present, Soft to palpation, non-tender, No hepatosplenomegaly present, no masses and no bruits PALPATION: Yes Soft to palpation and Yes No hepatosplenomegaly present Extremity: COMMON NORMALS: capillary refill normal, no clubbing, cyanosis or edema, no calf tenderness and no pedal edema Neuro: COMMON NORMALS: patient oriented x3 Psych: COMMON NORMALS: mental status grossly normal Data : 06/08/20 04:33 06/09/20 04:47 Micro: Microbiology 06/06/20 11:33 Blood Culture - Final Blood Klebsiella pneumoniae 06/06/20 11:27 Blood Culture - Preliminary Blood Klebsiella pneumoniae 06/09/20 04:51 Blood Culture - Preliminary Blood SPECIMEN COLLECTED 06/09/20 04:47 Blood Culture - Preliminary Blood SPECIMEN COLLECTED 06/05/20 12:59 Blood Culture - Preliminary Blood Citrobacter farmeri 06/05/20 17:55 Blood Culture - Preliminary Blood Klebsiella pneumoniae A&P Assessment and plan (1) Diabetic ketoacidosis: - Anion gap closed - Long acting insulin given - Transitioned to SQ insulin - ACHS checks - Diabetic diet Status: Acute Qualifiers: Diabetes mellitus complication detail: without coma (2) Acute renal failure (ARF): Resolved Status: Acute (3) High anion gap metabolic acidosis: Resolved. Status: Acute (4) Leukocytosis: - Blood culture 1/2 set showed gram negative rods - On Rocephin 2g IV daily - Repeat blood culture in am - Leukocytosis improving. Status: Acute (5) Intractable nausea and vomiting: Radha undiagnosed gastroparesis Reglan PRN - may consider scheduling doses with meals Due to abdominal pian - will obtain CT abd/pelvis w IV contrast Patient unable to tolerate PO contrast Status: Acute (6) Neuropathy associated with endocrine disorder: Not currently on any home meds Status: Acute (7) Non compliance w medication regimen: Stressed need to continue home regimen of insulin Status: Acute (8) Pyelonephritis of right kidney: -Right pyelonephritis with gram-negative bacteremia, sepsis -First set of blood cultures positive Citrobacter for Madeleine Schmitt, Klebsiella pneumonia -Second set of blood cultures positive positive for Klebsiella pneumonia, both pansensitive, however I will wait until final cultures are available to ensure that this is not ESBL -Patient has been on Rocephin since admission, this was stopped yesterday, antibiotic coverage broadened to Primaxin as she continued to have fevers -Tachycardia resolved, afebrile for the last 24 hours, no hypotensive episodes -Monitor hemodynamics closely, monitor blood pressures closely -Follow culture results -Likely will require chronic suppressive antibiotics as outpatient, with a follow-up with urology Status: Acute (9) Gram-negative bacteremia: Status: Acute (10) Sepsis: Status: Acute Additional A&P Information Sore throat, likely secondary to acid reflux and retching, Esophagitis, related to retching start low-dose prednisone, Protonix 40 twice daily Attestations Medical Necessity Statement*: Patient requires hospitalization for pyelonephritis, bacteremia, DKA Coding Level of Care Code 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
--- NOTE | 2020-06-09 13:53 | PC.NURSE ---
resting quietly. upthis am for hygiene care. arnav. up w/o diff.
[2020-06-09 16:01] LABS: Glucose Point of Care 166 mg/dL (70-110)
--- NOTE | 2020-06-09 17:14 | PC.NURSE ---
conts. to have severe pain in esophageal area reglan then tylenol with codeine given prior to supper. teary eyed. brought banana milkshake, but it hurt worse when she tried to swallow.
--- NOTE | 2020-06-09 18:34 | PC.NURSE ---
transferring to 2nd floor per w/c
--- NOTE | 2020-06-09 19:34 | PC.NURSE ---
TRANSFER Pt came to floor from CSU via wheelchair at 1900. Is resting in bed Voice hoarse. Says has had alot of acid reflux and vomiting over last week or so. c/o sore throat and pain down medial chest/esophagus area with swallowing. Reports no vomiting today but some nausea with trying to eat. Oriented to room.
[2020-06-09 21:32] LABS: Glucose Point of Care 226 mg/dL (70-110)
[2020-06-09] MEDS: ALPRAZolam 0.25 mg Tablet PO (21:37)
[2020-06-09] MEDS: insulin glargine 100 units/1 mL 5 UNIT SUBCUT (21:38)
[2020-06-10] VITALS: BP 89/56; PULSE 88; RESP 20; TEMP 36.8; O2SAT 96
[2020-06-10] MEDS: acetaminophen-codeine 120-12 mg/5 mL UDC PO ×2 (00:15→05:37)
[2020-06-10] MEDS: heparin 5,000 unit/mL INJ 1 mL 5000 UNIT SUBCUT ×2 (00:44→08:28)
[2020-06-10] MEDS: metoclopramide 10 mg Tablet 5 MG PO ×2 (00:47→08:27)
[2020-06-10 03:55] VITALS: BP 87/64; PULSE 90; RESP 17; TEMP 37.1; O2SAT 99
[2020-06-10 06:08] LABS: Alanine Aminotransferase 8 U/L (0-33); Albumin Level 3.2 g/dL (3.5-5.2); Alkaline Phosphatase 93 IU/L (35-105); Anion Gap 13.4 (5-19); Aspartate Amino Transferase 10 U/L (0-32); Blood Urea Nitrogen 9 mg/dL (8-23); C Reactive Protein 13.3 mg/L (0.0-4.9); Calcium 8.8 mg/dL (8.5-10.5); Carbon Dioxide 26 mmol/L (22-29); Chloride 105 mmol/L (98-107); Glomerular Filtration Rate 125.9 mL/min (90-130); Glucose 148 mg/dL (65-115); Magnesium 2.2 mg/dL (1.7-2.3); Osmolality Calculated 293 mOsm/kg (285-295); Phosphorus 3.3 mg/dL (2.5-4.5); Potassium 3.4 mmol/L (3.5-5.1); Sodium 141 mmol/L (136-145); Total Bilirubin 0.3 mg/dL (0.15-1.2); Total Protein 6.2 g/dL (6.6-8.7)
[2020-06-10 06:21] LABS: Procalcitonin 0.24 ng/mL (0-0.5)
[2020-06-10 07:21] VITALS: BP 107/70; PULSE 84; RESP 15; TEMP 36.8; O2SAT 96
[2020-06-10 07:43] LABS: Glucose Point of Care 141 mg/dL (70-110)
[2020-06-10] MEDS: amlodipine 5 mg Tablet PO (08:27)
[2020-06-10] MEDS: pantoprazole DR 40 mg Tablet PO (08:27)
[2020-06-10] MEDS: predniSONE 20 mg Tablet PO (08:27)
[2020-06-10] MEDS: metoprolol tartrate 25 mg Tablet PO (08:27)
--- NOTE | 2020-06-10 10:03 | PC.CHAP ---
Pastoral Care Encounter/Spiritual Assessment Type of Contact [] Declined risk assessment consultant visit [] Patient/Family/Request visit [] Outpatient visit [X] Follow-up visit [] Physician referral [] Code/Alert [] Routine visit [] Staff referral [] Actively dying [] Patient sleeping [] Family support [] [] Out of room [] Palliative care [] [] Receiving care in room [] Pre-surgical visit [] Trauma [] Long length of stay [] ICU visit [] Other: Relational/Emotional Strength [] Patient feels connected with others/family/visitors/staff [] Distress [] Loneliness/isolation [] Abandonment Spirituality of Patient [] Person of Monique [] Attends Orthodoxy of their Monique [] Believes in Prayer [] Reads Bible or Quaker materials [] There are Spiritual issues to be addressed 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 Interventions [] Prayer [] Active listening [X] Non-anxious presence [] Spiritual/emotional support [] Crisis/trauma care [] Spiritual counseling [] Bereavement support [] Provided bereavement packet [] Provided Bible/devotional materials [] Provided toy/stuffed animal, coloring book to patient or family member [] Provided Communion [] Anointing/[place] [] Salvation [] Completed spiritual assessment [] Other: Impact on Illness or Injury [] Angry [] Fearful [] Anxious [] Often cries [] Exhaustion [] Unable to work [] Unable to attend islam [] Unable to walk/stand [] Unable to read [] Unable to drive [] Unable to eat/drink [] Unable to sleep [] Unable to be with family [] Patient intubated [] Other: Summary: PT is about to be discharged. She appreciated me stopping by again (yesterday, she was bathing herself at bedside). Otherwise, she didn't feel that she needed a visit. Time spent with patient: <5 mins
--- NOTE | 2020-06-10 10:45 | P.DS_ITS ---
Discharge Providers Date of Admission: 06/05/20 13:53 Date of Discharge: June 10, 2020 Attending Provider at Admission: Fredo Mcnair Attending Provider at Discharge: Ezequiel Alvarez MD Diagnoses at Discharge Discharge Diagnosis (1) Diabetic ketoacidosis: Status: Acute Qualifiers: Diabetes mellitus complication detail: without coma (2) Acute renal failure (ARF): Status: Acute (3) High anion gap metabolic acidosis: Status: Acute (4) Leukocytosis: Status: Acute (5) Intractable nausea and vomiting: Status: Acute (6) Neuropathy associated with endocrine disorder: Status: Acute (7) Non compliance w medication regimen: Status: Acute (8) Pyelonephritis of right kidney: Status: Acute (9) Gram-negative bacteremia: Status: Acute (10) Sepsis: Status: Acute Reason for Visit Reason for Visit: vomiting/headache/rash/high pulse Hospital Course Discharge Summary: This is a 60-year-old female with past medical history of insulin-dependent type 2 diabetes mellitus, last hemoglobin A1c 13, who presents [facility] due to complaints of nausea, vomiting, abdominal pain. Patient was admitted to the ICU for diabetic ketoacidosis, secondary to right- sided pyelonephritis, and gram-negative bacteremia. For diabetic ketoacidosis, she was managed in ICU, DKA protocol, clinically did well, deescalated to cardiac stepdown unit, then to general medical floors. I have discharged the patient on a moderate dose sliding scale, with Levemir 5 units twice daily. Patient was advised to check blood sugars 3 times daily record them in a blood sugar log, bring blood sugars to agricultural sales representative in 1 to 3 days. If blood sugar greater than 500 come to the emergency room. If blood sugar less than 60 drink or juice or eat a hard candy and come to the emergency room. In addition diabetic education was extensively provided. Hypertension, discharged on metoprolol and Norvasc. Patient had right-sided pyelonephritis with resistant Citrobacter farmeri and Klebsiella pneumonia UTI. CT scan of the abdomen was negative for obstructive uropathy. Patient had initially slow clinical progress with broad-spectrum antibiotics, she had recurrent fevers, her antibiotic coverage was broadened to Primaxin, she clinically improved, her recurrent blood culture showed Klebsiella pneumonia, I believe that it was likely because the repeat blood cultures were drawn too soon.nonetheless, she clinically improved, remained afebrile. Helio avalos's third set of blood cultures, so far show gram-positive cocci, likely contaminant, I have drawn fourth set of blood cultures just to be on the safe side. Will call if blood cultures come back positive for anything other than contamination. Citrobacter it was sensitive to Augmentin, Klebsiella pneumoniae UTI sensitive to Augmentin, discharged on Augmentin for 12 remaining days. In addition patient has chronic UTIs, will start chronic suppressive antibiotics, Keflex for 30 days. We will have patient follow-up with Dr. Wheeler. In addition patient had complaints of lower esophageal pain, acid reflux. Discharge on Protonix 40 twice daily. She likely had significant acid reflux with the retching, and the likely a mild Emily-Pastor tear from her retching. She overall clinically improved, did okay with a GI soft diet, I have discharged her on Protonix 40 twice daily, low-dose prednisone for 5 days. If patient symptoms persist beyond 30 days, she would clinically benefit from an EGD. Patient also had complaints of sore throat, likely from severe vomiting, acid reflux. Discharge on a short supply of Tylenol with codeine, advised to not use with any other pain medications. Physical Exam Const: COMMON NORMALS: no acute distress and patient oriented x3 HENMT: COMMON NORMALS: normocephalic HEAD & SCALP: normocephalic Neck/C-Spine: COMMON NORMALS: no JVD Resp: COMMON NORMALS: normal respiratory effort, No retractions, No use of accessory muscles and clear to auscultation bilaterally AUSCULTATION: clear to auscultation bilaterally Cardio: COMMON NORMALS: no JVD, regular rate, regular rhythm, S1 normal heart sound present and S2 normal heart sound present RATE: regular rate RHYTHM: regular rhythm HEART SOUNDS: S1 normal heart sound present and S2 normal heart sound present GI: COMMON NORMALS: Normal to inspection, nondistended, normoactive bowel soun ds present, Soft to palpation, non-tender, No hepatosplenomegaly present, no masses and no bruits PALPATION: Yes Soft to palpation and Yes No hepatosplenomegaly present Extremity: COMMON NORMALS: capillary refill normal, no clubbing, cyanosis or edema, no calf tenderness and no pedal edema Neuro: COMMON NORMALS: patient oriented x3 Psych: COMMON NORMALS: mental status grossly normal Discharge Data Data Completed and Pending: Completed Studies During Hospitalization Category Date Time Status CT abdomen pelvis w con* [id number] Rout ine Cat Scan 06/06/20 11:54 Completed XR chest 1V fidel ble [id number] Urgent Exams 06/05/20 11:56 Completed Pending at discharge Category Date Time Status Blood Culture Sta t Lab 06/05/20 12:59 Results Blood Culture Sta t Lab 06/06/20 11:33 Results Blood Culture Sta t Lab 06/09/20 04:51 Results Blood Culture Sta t Lab 06/10/20 10:41 Ordered Comprehensive Met abolic Panel AM LA BS Lab 06/11/20 04:00 Ordered Labs from last 24 hours 06/10/20 06/10/20 06/10/20 07:40 05:26 05:26 Sodium Potassium Chloride Carbon Dioxide Anion Gap BUN Creatinine GFR Calculation Glucose POC Glucose 141 Calculated Osmolal ity Lactic Acid 1.0 Calcium Phosphorus Magnesium Total Bilirubin AST ALT Alkaline Phosphata se C-Reactive Protein Total Protein Albumin Globulin Procalcitonin 0.24 06/10/20 06/09/20 06/09/20 05:26 21:28 15:49 Sodium 141 Potassium 3.4 L Chloride 105 Carbon Dioxide 26 Anion Gap 13.4 BUN 9 Creatinine 0.5 GFR Calculation 125.9 Glucose 148 H POC Glucose 226 166 Calculated Osmolal ity 293 Lactic Acid Calcium 8.8 Phosphorus 3.3 Magnesium 2.2 Total Bilirubin 0.3 AST 10 ALT 8 Alkaline Phosphata se 93 C-Reactive Protein 13.3 H Total Protein 6.2 L Albumin 3.2 L Globulin 3.0 Procalcitonin Vitals: Last Vital Signs Temp 98.3 F 06/10/20 07:21 Pulse 84 06/10/20 07:21 Resp 15 06/10/20 07:21 BP 107/70 06/10/20 07:21 Pulse Ox 96 06/10/20 07:21 Discharge Plan Discharge Patient Disposition: Home Condition: Stable Prescriptions: New acetaminophen-codeine 120 mg-12 mg /5 mL (5 mL) Solution 5 ml PO Q24H PRN (Reason: Moderate Pain) 7 Days Qty: 35 RF: 0 prednisone 20 mg Tablet 20 mg PO DAILY 5 Days Qty: 5 RF: 0 amlodipine 5 mg Tablet 5 mg PO DAILY 30 Days Qty: 30 RF: 0 pantoprazole 40 mg Tablet,Delayed Release (Dr/Ec) 40 mg PO BID 30 Days Qty: 60 RF: 0 Sore Throat (phenol) 1.4 % Aerosol,[place]alding 5 spray mucous membrane Q2H PRN (Reason: Sore Throat) Qty: 177 RF: 0 metoprolol tartrate 25 mg Tablet 25 mg PO BID 30 Days Qty: 60 RF: 0 Levemir FlexTouch U-100 Insuln 100 unit/mL (3 mL) insulin pen 5 unit SUBCUT Q12H 30 Days Qty: 15 RF: 0 Novolog Flexpen U-100 Insulin 100 unit/mL (3 mL) insulin pen See Rx Instructions .ROUTE .COMPLEX Qty: 15 RF: 0 Augmentin 875-125 mg tablet 1 tab PO Q12H 12 Days Qty: 24 RF: 0 cephalexin 250 mg capsule 250 mg PO DAILY 30 Days Qty: 30 RF: 0 Changed Zofran 4 mg Tablet 4 mg PO Q4H PRN (Reason: Nausea And Vomiting) 15 Days Qty: 30 RF: 0 Held hydromorphone 8 mg tablet 8 mg PO Q4H PRN (Reason: Pain) RF: 0 Hold Instructions: Resume on 06/16/20. donot take with tylenol with codiene Discontinued Levemir FlexTouch U-100 Insuln 100 unit/mL (3 mL) insulin pen See Rx Instructions .ROUTE .COMPLEX RF: 0 Tylenol 2 cap PO PRN RF: 0 Discharge Orders: Discharge Order (Routine); Ordered 06/10/20 Ordered By: Ezequiel Alvarez Referrals: Duane Wheeler MD [Physician] - 2 weeks Erasto Tijerina MD [Physician] - 1-3 days (diabetes) Kayode Schilling DO [Family Provider] - Discharge Diet: Diabetic Discharge Activity: Resume usual activity Patient Instructions: Diabetes and Diet, How to Check Your Blood Sugar (DC), Diabetic Ketoacidosis (GEN), Diabetic Foot Care (DC), Diabetic Hypoglycemia (DC), Diabetes Mellitus Type 2 in Adults (GEN), Basic Carbohydrate Counting (GEN), Meal Planning with the Plate Model (DC), Diabetic Neuropathy (DC), Hyperosmolar Hyperglycemic State (DC), Managing Diabetes During Sick Days (DC) Activity Restrictions/Additional Instructions: -please check blood sugars 3 times daily, record them in a blood sugar log, bring to agricultural sales representative in 1 to 3 days -Check blood sugars before meals, inject short acting based on sliding scale -Inject short acting insulin, NovoLog based on sliding scale, do not inject insulin if you do not eat a meal -Inject Levemir subcutaneously, twice daily -Follow-up with endocrinology -Take antibiotic as prescribed -Follow-up with Dr. Wheeler in 2 weeks -Continue chronic suppressive antibiotic therapy -If you continue to have fevers, fatigue, malaise come back to the emergency room -If you continue to have acid reflux, lower esophageal pain, follow-up with primary care for consideration of EGD Discharge Attestations Time Spent in Discharge Care*: less than 30 min Quality Metrics Clinical Quality Measures During this hospital stay, did patient experience: None Coding Level of Care Code Acute Bi Technical Lead for Chg Fwd Diagnoses Diabetic ketoacidosis E11.10 Diabetes mellitus complication detail: without coma Acute renal failure (ARF) N17.9 High anion gap metabolic acidosis E87.2 Leukocytosis D72.829 Intractable nausea and vomiting R11.2 Neuropathy associated with endocrine disorder E34.9; G63 Non compliance w medication regimen Z91.14 Pyelonephritis of right kidney N12 Gram-negative bacteremia R78.81 Sepsis A41.9
[2020-06-10 12:00] VITALS: BP 94/52; PULSE 84; RESP 15; TEMP 37.2; O2SAT 97
[2020-06-10 12:34] LABS: Glucose Point of Care 305 mg/dL (70-110)
[2020-06-10 13:25] VITALS: BP 94/52; PULSE 84; RESP 15; TEMP 37.2; O2SAT 97
--- NOTE | 2020-06-11 16:30 | PC.SOCIAL ---
[facility]olog flex pen ordered at [facility] not covered by insurance. Dr Alvarez called and he gave verbal to switch to Humalog flex pen that is on formulary. Called pharmacist Kika at [facility] pharmacy and updated her to run script as Humalog same dosage and to do the flex pen. This is on formulary and the copay is around $95. She will update patient.
== END 2020-06-10 13:26 | disposition home or self-care (01) | DRG 637 ==
LOC: ER 14:08 → ICU 14:14 → CSU 06-07 02:21 → MEDSURG 06-09 19:09
PROVIDERS: Emergency Medicine; Student in an Organized Health Care Education/Training Program; Admitting Provider Hospitalist; Family Provider Family Medicine; Visit Provider Family Medicine
DX: E11.10 Type 2 diabetes mellitus with ketoacidosis without coma (principal); A41.9 Sepsis, unspecified organism; N17.9 Acute kidney failure, unspecified; N10 Acute pyelonephritis; E11.40 Type 2 diabetes mellitus with diabetic neuropathy, unspecified; Z91.14 Patient's other noncompliance with medication regimen; E34.9 Endocrine disorder, unspecified; G63 Polyneuropathy in diseases classified elsewhere; Z23 Encounter for immunization; Z79.4 Long term (current) use of insulin
CPT/HCPCS: 12345; 36415; 36416; 36600; 71045; 74177; 80048; 80053; 81001; 82009; 82803; 82962; 83605; 83690; 83735; 84100; 84145; 85025; 86140; 87040; 87077; 87186; 87205; 93005; 96372; 96375; 97161; 97165; 97535; 99282; 99291; J0696; J0743; J1170; J1644; J1815 ×2; J2405; J2765; J3480; J3490; J7030; J7512; J8597; Q9967

== ENCOUNTER 2021-09-10 12:06 | Outpatient (CLI) | payer BC, SELFPAY ==
--- NOTE | 2021-09-10 12:14 | XR_ITS ---
WS: [id number] XR lumbar spine 2-3V* [id number] REASON FOR EXAM: LEG PAIN/ACCIDENTAL FALL/BACK PAIN FINDINGS: Wedge-shaped compression deformity of T12 unchanged compared to 02/03/2018. Mild concave compression deformities of the lumbar vertebrae L1-L5. No focal vertebral body lesion. C onfiguration of the lumbar vertebrae unchanged compared to 02/03/2018. Mild narrowing of the L1-L2 interspace. No change from the previous examination. XR/XR lumbar spine 2-3V* [id number] IMPRESSION: Stable lumbar spine as above. No acute abnormality.
--- NOTE | 2021-09-10 12:14 | XR_ITS ---
WS: [id number] XR hip LT 2-3V wo/w pel* [id number] REASON FOR EXAM: LEG PAIN/ACCIDENTAL FALL/BACK PAIN FINDINGS: No fracture or focal bone lesion. Subchondral sclerosis with marginal osteophyte of the acetabulum. Similar to the right side. Superior and inferior pubic ramus are intact. XR/XR hip LT 2-3V wo/w pel* [id number] IMPRESSION: Mild changes of osteoarthritis with no acute abnormality.
--- NOTE | 2021-09-10 12:14 | XR_ITS ---
WS: [id number] XR knee LT 3V* [id number] REASON FOR EXAM: LEG PAIN/ACCIDENTAL FALL/BACK PAIN FINDINGS: No fracture. Mild narrowing of the medial and lateral knee joint spaces without significant subchondral bony charles e. Mild narrowing of the patellofemoral joint space with small marginal osteophytes of the patella. No soft tissue abnormality. XR/XR knee LT 3V* [id number] IMPRESSION: No acute abnormality.
== END 2021-09-10 12:07 | disposition home or self-care (01) ==
LOC: RAD 12:11
PROVIDERS: PCP Family Medicine; Visit Provider Family Medicine
DX: M79.605 Pain in left leg (principal); M54.50 Low back pain, unspecified; W19.XXXA Unspecified fall, initial encounter
CPT/HCPCS: 72100; 73502; 73562

== ENCOUNTER → 2022-01-15 16:39 | Outpatient (BNVA) | payer BC, SELFPAY | PROVIDERS: PCP Family Medicine; Visit Provider Family Medicine | DX: N39.0 Urinary tract infection, site not specified (principal) | CPT/HCPCS: 81000; 87086 ==

== ENCOUNTER → 2022-01-16 13:27 | Outpatient (BNVA) | payer BC, SELFPAY | PROVIDERS: PCP Family Medicine; Visit Provider Family Medicine | DX: N39.0 Urinary tract infection, site not specified; E55.9 Vitamin D deficiency, unspecified; E11.42 Type 2 diabetes mellitus with diabetic polyneuropathy | CPT/HCPCS: 80053; 82306; 82607; 83036; 84443; 85025; 85651; 86140 ==

== ENCOUNTER → 2022-03-20 11:43 | Outpatient (BNVA) | payer BC, SELFPAY | PROVIDERS: PCP Family Medicine; Referring Provider Family Medicine; Visit Provider Family Medicine | DX: N39.0 Urinary tract infection, site not specified (principal) | CPT/HCPCS: 81000; 87077; 87086; 87184 ==

== ENCOUNTER → 2022-04-01 12:31 | Outpatient (BNVA) | payer BC, SELFPAY | PROVIDERS: PCP Family Medicine; Visit Provider Family Medicine | DX: N39.0 Urinary tract infection, site not specified (principal) | CPT/HCPCS: 81000; 87086 ==

== ENCOUNTER → 2022-04-10 12:17 | Outpatient (BNVA) | payer BC, SELFPAY | PROVIDERS: PCP Family Medicine; Visit Provider Family Medicine | DX: N39.0 Urinary tract infection, site not specified (principal) | CPT/HCPCS: 81000; 87086 ==

== ENCOUNTER → 2022-05-21 16:18 | Outpatient (BNVA) | payer BC, SELFPAY | PROVIDERS: PCP Family Medicine; Visit Provider Family Medicine | DX: N39.0 Urinary tract infection, site not specified (principal) | CPT/HCPCS: 81000; 87086 ==

== ENCOUNTER → 2022-06-03 14:07 | Outpatient (BNVA) | payer BC, SELFPAY | PROVIDERS: PCP Family Medicine; Visit Provider Family Medicine | DX: N39.0 Urinary tract infection, site not specified (principal) | CPT/HCPCS: 81000; 87086 ==

== ENCOUNTER → 2022-06-17 10:22 | Outpatient (BNVA) | payer BC, SELFPAY | PROVIDERS: PCP Family Medicine; Visit Provider Family Medicine | DX: R19.7 Diarrhea, unspecified (principal); R53.1 Weakness; E11.9 Type 2 diabetes mellitus without complications | CPT/HCPCS: 80053; 83630; 87177; 87209; 87493; 87506 ==

== ENCOUNTER 2022-08-23 14:10 | Emergency (ER) | payer BC, SELFPAY ==
[2022-08-23] VITALS (9 sets, daily range): BP systolic 98–128; BP diastolic 62–99; PULSE 113–125; RESP 16–22; TEMP 36.7; O2SAT 93–100
--- NOTE | 2022-08-23 14:29 | XRR_ITS ---
PROCEDURE INFORMATION: Exam: XR Right Hip Exam date and time: 08/23/2022 2:46 PM Age: 62 years old Clinical indication: Injury or trauma; Fall; Blunt trauma (contusions or hematomas); Left; Hip; Additional info: Pain; Fall TECHNIQUE: Imaging protocol: Radiologic exam of the Right hip. Views: 1 view hip with pelvis when performed. COMPARISON: CT abdomen pelvis w con* [id number] 06/06/2020 6:41 PM FINDINGS: Bones/joints: There is a non displaced intertrochanteric fracture of the left hip Soft tissues: Unremarkable. XR/XR hip RT 2-3V wo/w pel* [id number] IMPRESSION: Nondisplaced intertrochanteric fracture left hip.
--- NOTE | 2022-08-23 14:29 | XRR_ITS ---
PROCEDURE INFORMATION: Exam: XR Chest Exam date and time: 08/23/2022 2:51 PM Age: 62 years old Clinical indication: Injury or trauma; Fall; Blunt trauma (contusions or hematomas); Additional info: Fall; L hip pain TECHNIQUE: Imaging protocol: Radiologic exam of the chest. Views: 1 view. COMPARISON: CR XR chest 1V portable [id number] 06/05/2020 12:07 PM FINDINGS: Lungs: Unremarkable. No consolidation. Pleural spaces: Unremarkable. No pleural effusion. No pneumothorax. Heart/Mediastinum: Unremarkable. No cardiomegaly. Bones/joints: Unremarkable. XR/XR chest 1V portable [id number] IMPRESSION: No acute findings.
--- NOTE | 2022-08-23 14:30 | XRR_ITS ---
PROCEDURE INFORMATION: Exam: XR Lumbosacral Spine Exam date and time: 08/23/2022 2:48 PM Age: 62 years old Clinical indication: Injury or trauma; Fall; Blunt trauma (contusions or hematomas); Additional info: Pain; Fall TECHNIQUE: Imaging protocol: Radiologic exam of the lumbosacral spine. Views: 2 or 3 views. COMPARISON: CR XR lumbar spine 2-3V* [id number] 09/10/2021 12:32 PM FINDINGS: Bones/joints: Generalized osteopenia is seen. A compression fracture is present involving the T12 vertebral body. This finding is stable since prior examination. Otherwise No acute fracture. Normal alignment. Soft tissues: Unremarkable. XR/XR lumbar spine 2-3V* [id number] IMPRESSION: 1. Generalized osteopenia. 2. Stable compression fracture T12 vertebral body. 3. Negative for acute bony abnormality
--- NOTE | 2022-08-23 14:31 | W.ED.FALL ---
HPI - Fall General: Chief Complaint: Fall Stated Complaint: FALL Time Seen by Provider: 08/23/22 14:22 Source: patient and EMS Mode of arrival: EMS Limitations: no limitations History of Present Illness: See nursing assessment. Patient states she tripped over a cord at home and fell on her left hip causing severe pain to her left hip. She also has moderate pain to her lower lumbar area. She denies any other injury. She denies any head injury. She denies any neck or upper back pain. She denies any pain to the chest or abdomen. No neurological changes. She denies being on any blood thinners. She states pain medication typically makes her nauseated. Patient received 100 mcg of fentanyl and Zofran 4 mg and normal saline 250 cc prior to arrival by EMS. Associated symptoms-after fall: Denies abdominal pain, chest pain, headache(s) or neck pain Review of Systems Const: Denies: fever(s) or chills Eyes: Denies: change in vision ENMT: Denies: throat pain Card: Denies: chest pain or palpitations Resp: Denies: dyspnea or wheezing GI: Denies: abdominal pain, nausea or vomiting : Denies: flank pain Musc: Reports: back pain, extremity pain, joint pain and other (severe left hip pain; no rotation. No shortening.); Denies: neck pain, extremity swelling or joint swelling Skin/Breast: Denies: rash or pruritus Neuro: Denies: headache(s) or numbness in extremities [place]co/Lymph: Denies: enlarged lymph nodes PFSH ED Supplemental PFSH Information: No previous hip surgery. Insulin dependent diabetes mellitus Physical Exam Const: COMMON NORMALS: patient oriented x3, no limitations and well nourished GENERAL APPEARANCE: cooperative HENMT: COMMON NORMALS: normocephalic and atraumatic HEAD & SCALP: normocephalic and atraumatic FACE & SINUS: normal facial exam Eye: COMMON NORMALS: EOMs intact bilaterally Neck/C-Spine: COMMON NORMALS: full ROM, no lymphadenopathy, supple and no meningeal signs GENERAL: Yes normal visual inspection Lymph: LYMPHATIC: no lymphadenopathy noted Chest: COMMONS NORMALS: normal inspection of the chest and normal palpation of entire chest wall CHEST: No Ecchymosis present and No rash Resp: COMMON NORMALS: normal respiratory effort, No retractions and clear to auscultation bilaterally EFFORT & INSPECTION: No respiratory distress AUSCULTATION: clear to auscultation bilaterally Cardio: COMMON NORMALS: regular rate, regular rhythm and Peripheral pulses 2+ throughout JUGULAR VENOUS DISTENTION: no JVD RATE: regular rate RHYTHM: regular rhythm PERIPHERAL PULSES: Peripheral pulses 2+ throughout GI: COMMON NORMALS: Normal to inspection, nondistended, normoactive bowel sounds present and non-tender : COMMON NORMALS: Yes no CVA tenderness BLADDER/KIDNEY EXAM: Yes no CVA tenderness Back/Pelvis: COMMON NORMALS: no CVA tenderness OTHER: Moderate pain to the lateral aspect of the left lower lumbar spine area. No step-off. Extremity: OTHER: Severe pain in the left hip with any range of motion. No shortening or rotation. Peripheral pulses normal. Sensation and motor intact. Remainder of extremities are nontender. Neuro: COMMON NORMALS: patient oriented x3, CN's II-XII intact bilaterally, no focal motor deficits and no sensory deficits noted MENINGEAL SIGNS: Yes no meningeal signs Psych: COMMON NORMALS: mental status grossly normal and Normal thought process present THOUGHT PROCESS: Normal thought process present Skin: COMMON NORMALS: no rashes or lesions noted and no wounds GENERAL SKIN EXAM: no rashes or lesions noted Course Vital Signs: Vital signs: Vital Signs Temperature 98.1 F 08/23/22 14:21 Pulse Rate 113 H 08/23/22 16:31 Respiratory Rate 16 08/23/22 17:48 Blood Pressure 104/62 08/23/22 16:31 Pulse Oximetry 98 08/23/22 17:48 Oxygen Delivery Me thod 08/23/22 14:21 MDM - Fall Medical Decision Making Suspect left hip fracture. Lumbar spine injury. Family requested the patient be transferred to [place] to see family friend that is an orthopedist there. I had originally talked to our local orthopedist and he excepted the patient. However, family requested patient be transferred to [place]. [facility] was full. Patient was accepted to [facility]. I discussed case with Dr. Corrigan emergency room physician and he accepted the patient in transfer to the emergency room. Dr. Levin notified of transfer to other facility at patient's request. Lab Data 08/23/22 14:33 08/23/22 14:33 Radiology Impressions Chest X-Ray 08/23/22 14:29 IMPRESSION: No acute findings. Hip/Pelvis X-Ray 08/23/22 14:29 IMPRESSION: Nondisplaced intertrochanteric fracture left hip. Lumbar Spine X-Ray 08/23/22 14:30 IMPRESSION: 1. Generalized osteopenia. 2. Stable compression fracture T12 vertebral body. 3. Negative for acute bony abnormality Laboratory Results WBC 10.1 10^3/uL (4.0-10.0) H 08/23/22 14:33 RBC 4.57 10^6/uL (4.1-5.3) 08/23/22 14:33 Hgb 13.6 g/dL (11.5-15.3) 08/23/22 14: Hct 42.3 % (37.0-47.0) 08/23/22 14: MCV 92.6 fl (81-99) 08/23/22 14: MCH 29.8 pg (28.0-34.0) 08/23/22 14: MCHC 32.2 g/dL (30.0-36.0) 08/23/22 14: RDW 12.1 % (12.1-15.1) 08/23/22 14: Plt Count 391 10^3/cmm (130-400) 08/23/22 14: MPV 12.7 fL (7.4-10.4) H 08/23/22 14:33 Neut % (Auto) 65.1 % 08/23/22 14:33 Lymph % (Auto) 25.1 % 08/23/22 14:33 [place] % (Auto) 5.3 % 08/23/22 14: Eos % (Auto) 2.5 % 08/23/22 14:33 Baso % (Auto) 1.0 % 08/23/22 14: Neut # (Auto) 6.58 10^3/uL (1.8-7.7) 08/23/22 14: Lymph # (Auto) 2.5 10^3/uL (0.8-4.8) 08/23/22 14:33 [place] # (Auto) 0.5 10^3/uL (0.2-0.9) 08/23/22 14:33 Eos # (Auto) 0.3 10^3/uL (0.0-0.8) 08/23/22 14:33 Baso # (Auto) 0.1 10^3/uL (0.0-0.1) 08/23/22 14:33 Nucleated RBC % (auto) 0 % 08/23/22 14:33 Nucleated RBCs # 0.0 /100WBC 08/23/22 14:33 Sodium 133 mmol/L (136-145) L 08/23/22 14:33 Potassium 4.7 mmol/L (3.5-5.1) 08/23/22 14:33 Chloride 95 mmol/L (98-107) L 08/23/22 14:33 Carbon Dioxide 25 mmol/L (22-29) 08/23/22 14:33 Anion Gap 17.7 (5-19) 08/23/22 14:33 BUN 15 mg/dL (8-23) 08/23/22 14:33 Creatinine 0.7 mg/dL (0.5-0.9) 08/23/22 14:33 GFR Calculation 84.8 mL/min (90-130) L 08/23/22 14:33 Glucose 450 mg/dL (65-115) H 08/23/22 14:33 POC Glucose 283 mg/dL (70-110) H 08/23/22 16:46 Calculated Osmolality 296 mOsm/kg (285-295) H 08/23/22 14:33 Calcium 9.2 mg/dL (8.5-10.5) 08/23/22 14:33 Imaging Data CXR: My impression: Nothing acute. No fractures. No infiltrates or effusions. Radiologist's impression: PROCEDURE INFORMATION: Exam: XR Chest Exam date and time: 08/23/2022 2:51 PM Age: 62 years old Clinical indication: Injury or trauma; Fall; Blunt trauma (contusions or hematomas); Additional info: Fall; L hip pain TECHNIQUE: Imaging protocol: Radiologic exam of the chest. Views: 1 view. COMPARISON: CR XR chest 1V portable [id number] 06/05/2020 12:07 PM FINDINGS: Lungs: Unremarkable. No consolidation. Pleural spaces: Unremarkable. No pleural effusion. No pneumothorax. Heart/Mediastinum: Unremarkable. No cardiomegaly. Bones/joints: Unremarkable. XR/XR chest 1V portable [id number] IMPRESSION: No acute findings. ? Dictated By: Sincere Silva Signed By: Sincere Silva Signed Date/Time: 08/23/22 1521 Xray Ortho: My impression: Nondisplaced closed intertrochanteric oblique left hip fracture Radiologist's impression: PROCEDURE INFORMATION: Exam: XR Right Hip Exam date and time: 08/23/2022 2:46 PM Age: 62 years old Clinical indication: Injury or trauma; Fall; Blunt trauma (contusions or hematomas); Left; Hip; Additional info: Pain; Fall TECHNIQUE: Imaging protocol: Radiologic exam of the Right hip. Views: 1 view hip with pelvis when performed. COMPARISON: CT abdomen pelvis w con* [id number] 06/06/2020 6:41 PM FINDINGS: Bones/joints:? There is a non displaced intertrochanteric fracture of the left hip Soft tissues: Unremarkable. XR/XR hip RT 2-3V wo/w pel* [id number] IMPRESSION: Nondisplaced intertrochanteric fracture left hip. ? ? Dictated By: Sincere Silva Signed By: Sincere Silva Signed Date/Time: 08/23/22 1524 Other Xray: My impression: Lumbar x-ray shows old T12 compression fracture compared to previous x-ray. Nothing acute. Radiologist's impression: PROCEDURE INFORMATION: Exam: XR Lumbosacral Spine Exam date and time: 08/23/2022 2:48 PM Age: 62 years old Clinical indication: Injury or trauma; Fall; Blunt trauma (contusions or hematomas); Additional info: Pain; Fall TECHNIQUE: Imaging protocol: Radiologic exam of the lumbosacral spine. Views: 2 or 3 views. COMPARISON: CR XR lumbar spine 2-3V* [id number] 09/10/2021 12:32 PM FINDINGS: Bones/joints:? Generalized osteopenia is seen.? A compression fracture is present involving the T12 vertebral body.? This finding is stable since prior examination. Otherwise? No acute fracture. Normal alignment. Soft tissues: Unremarkable. XR/XR lumbar spine 2-3V* [id number] IMPRESSION: 1. Generalized osteopenia. 2. Stable compression fracture T12 vertebral body. 3.? Negative for acute bony abnormality? ? Dictated By: Sincere Silva Signed By: Sincere Silva Signed Date/Time: 08/23/22 1520 EKG Data EKG 1: I personally reviewed and interpreted this EKG as follows: EKG interpretation date: 08/23/22 EKG interpretation time: 15:00 Prior EKG tracings: not available for review Interpretation: Impression sinus tachycardia heart rate 113. Normal axis. Normal AR interval, normal QT interval, normal ST segment. Normal QRS. Discharge Plan Discharge Patient Disposition: Xfer Short-Term Hosp Clinical Impression: Insulin dependent diabetes mellitus Hip fracture, intertrochanteric Qualifiers: Encounter type: initial encounter Fracture type: closed Fracture alignment: nondisplaced Laterality: left Qualified Code(s): S72.145A - Nondisplaced intertrochanteric fracture of left femur, initial encounter for closed fracture Condition: Stable Referrals: Kayode Schilling DO [Primary Care Provider] - Coding Level of Care Code ED [place] Gauger for Chg Fwd Exam Comprehensive Medical Decision Making Moderate Complexity
[2022-08-23] MEDS: ondansetron 2 mg/ML SDV 2 mL 4 MG IVP (14:38)
[2022-08-23] MEDS: HYDROmorphone 1 mg/mL INJ 1 mL 0.5 MG IVP ×4 (14:41→19:16)
[2022-08-23 14:45] LABS: Basophils # 0.1 10^3/uL (0.0-0.1); Eosinophils # 0.3 10^3/uL (0.0-0.8); Eosinophils % 2.5 %; Hematocrit 42.3 % (37.0-47.0); Hemoglobin 13.6 g/dL (11.5-15.3); Lymphocytes # 2.5 10^3/uL (0.8-4.8); Lymphocytes % 25.1 %; Mean Corpuscular HGB Conc 32.2 g/dL (30.0-36.0); Mean Corpuscular Hemoglobin 29.8 pg (28.0-34.0); Mean Corpuscular Volume 92.6 fl (81-99); Mean Platelet Volume 12.7 fL (7.4-10.4); Monocytes # 0.5 10^3/uL (0.2-0.9); Monocytes % 5.3 %; Neutrophils # 6.58 10^3/uL (1.8-7.7); Neutrophils % 65.1 %; Nucleated Red Blood Cells % 0 %; Platelet Count 391 10^3/cmm (130-400); Red Blood Count 4.57 10^6/uL (4.1-5.3); Red Cell Distribution Width 12.1 % (12.1-15.1); White Blood Count 10.1 10^3/uL (4.0-10.0)
--- NOTE | 2022-08-23 14:57 | ECG_ITS ---
[facility] Test Date: 2022-08-23 Pat Name: Madelyn Spencer Department: Room: Gender: Female Radiology Orderly: : 1960 Requested By: Zechariah Cortez Order Number: [id number] Reading MD: Mann Chung M.D. Measurements Intervals [place] Rate: 113 P: 51 MT: 130 QRS: 74 QRSD: 85 T: 48 QT: 320 QTc: 439 Interpretive Statements SINUS TACHYCARDIA ABNORMAL RHYTHM ECG Compared to ECG 06/05/2020 11:52:15 T-wave abnormality no longer present Possible ischemia no longer present Electronically Signed On 08-24-2022 10:05:26 SPECIAL DELIVERY WORKER by Mann Chung M.D. [id number]
[2022-08-23 15:04] LABS: Anion Gap 17.7 (5-19); Blood Urea Nitrogen 15 mg/dL (8-23); Calcium 9.2 mg/dL (8.5-10.5); Carbon Dioxide 25 mmol/L (22-29); Chloride 95 mmol/L (98-107); Glomerular Filtration Rate 84.8 mL/min (90-130); Glucose 450 mg/dL (65-115); Osmolality Calculated 296 mOsm/kg (285-295); Potassium 4.7 mmol/L (3.5-5.1); Sodium 133 mmol/L (136-145)
[2022-08-23] MEDS: insulin regular-human 100 units/1 mL 6 UNIT IVP (16:17)
[2022-08-23 16:24] LABS: Glucose Point of Care 373 mg/dL (70-110)
[2022-08-23 16:48] LABS: Glucose Point of Care 283 mg/dL (70-110)
--- NOTE | 2022-08-23 18:25 | PC.NURSE ---
Report called to SARAH Chacon at [facility]
== END 2022-08-23 19:21 | disposition short-term general hospital (02) ==
PROVIDERS: Emergency Provider Family Medicine; PCP Family Medicine
DX: S72.145A Nondisplaced intertrochanteric fracture of left femur, initial encounter for closed fracture (principal); E11.9 Type 2 diabetes mellitus without complications; Z79.4 Long term (current) use of insulin; W18.09XA Striking against other object with subsequent fall, initial encounter
CPT/HCPCS: 36416; 51702; 71045; 72100; 73502; 80048; 82962; 85025; 93005; 96374; 96375; 96376; 99285; J1170; J1815; J2405

== ENCOUNTER → 2022-10-02 16:10 | Outpatient (BNVA) | payer BC, SELFPAY | PROVIDERS: PCP Family Medicine; Visit Provider Family Medicine | DX: E11.9 Type 2 diabetes mellitus without complications (principal); E34.9 Endocrine disorder, unspecified; G63 Polyneuropathy in diseases classified elsewhere; G89.29 Other chronic pain; N39.0 Urinary tract infection, site not specified; R53.1 Weakness | CPT/HCPCS: 80053; 81000; 83036; 85025 ==

== ENCOUNTER → 2023-04-27 12:35 | Outpatient (BNVA) | payer BC, SELFPAY | PROVIDERS: PCP Family Medicine; Visit Provider Family Medicine | DX: E11.9 Type 2 diabetes mellitus without complications (principal); G62.9 Polyneuropathy, unspecified; M62.81 Muscle weakness (generalized); M79.2 Neuralgia and neuritis, unspecified; Z13.6 Encounter for screening for cardiovascular disorders | CPT/HCPCS: 80053; 80061; 82607; 83036; 85025 ==

== ENCOUNTER → 2023-05-13 13:34 | Outpatient (BNVA) | payer BC, SELFPAY | PROVIDERS: PCP Family Medicine; Visit Provider Family Medicine | DX: M62.81 Muscle weakness (generalized) (principal); N39.0 Urinary tract infection, site not specified | CPT/HCPCS: 81000; 87086 ==

== ENCOUNTER 2023-05-19 13:04 | Outpatient (RCR) | payer BC, SELFPAY | END 2023-06-09 23:59 | disposition home or self-care (01) | LOC: SPT 13:04 | PROVIDERS: PCP Family Medicine; Visit Provider Physician Assistant Medical | DX: S72.141D Displaced intertrochanteric fracture of right femur, subsequent encounter for closed fracture with routine healing (principal); M25.561 Pain in right knee; R29.898 Other symptoms and signs involving the musculoskeletal system; X58.XXXD Exposure to other specified factors, subsequent encounter | CPT/HCPCS: 97110; 97112; 97161 ==

== ENCOUNTER 2023-06-10 06:00 | Outpatient (RCR) | payer BC, SELFPAY | END 2023-07-09 23:59 | disposition home or self-care (01) | LOC: SPT 06:00 | PROVIDERS: PCP Family Medicine; Visit Provider Physician Assistant Medical | DX: S72.141D Displaced intertrochanteric fracture of right femur, subsequent encounter for closed fracture with routine healing (principal); X58.XXXD Exposure to other specified factors, subsequent encounter | CPT/HCPCS: 97110; 97112; 97164 ==

== ENCOUNTER 2023-08-07 07:05 | Outpatient (CLI) | payer BC, SELFPAY ==
--- NOTE | 2023-08-07 07:15 | MR_ITS ---
WS: [id number] MRI CERVICAL SPINE NONCONTRAST TECHNIQUE: Sagittal T1, T2 and STIR imaging. Axial T2, gradient, and fiesta imaging. CLINICAL INFORMATION: R53.1 - Weakness COMPARISON: MRI 2017 FINDINGS: Normal cervical alignment. No high-grade central canal stenosis. Cord signal is normal. C2-C3: Normal. C3-C4: Normal. C4-C5: Moderate facet arthropathy. Disc osteophyte complex. Mild bilateral foraminal narrowing LEFT g reater than RIGHT. C5-C6: Mild disc osteophyte complex. Mild LEFT greater than RIGHT bony foraminal narrowing. Mild face t arthropathy. C6-C7: Mild disc osteophyte complex with endplate ridging. Uncovertebral joint hypertrophy. Mild to m oderate LEFT bony foraminal narrowing. RIGHT foramen is patent. Spinal canal is patent. C7-T1: Mild disc osteophyte complex with endplate ridging. Mild LEFT and no significant RIGHT foramin al narrowing. Visualized brain stem structures: Normal. Prevertebral soft tissues: Normal. IMPRESSION: 1. Normal cervical alignment. No high-grade central canal stenosis. Cord signal is normal. 2. Mild bony foraminal narrowing more prominent at LEFT C5-C6 and LEFT C6-C7 similar to previous. 3. Mild bilateral C4-5 and mild LEFT C7-T1 bony foraminal narrowing. 4. Mild disc bulging C4-C5 C5-C6 and C6-C7 without significant central canal stenosis.
--- NOTE | 2023-08-07 08:45 | MR_ITS ---
WS: [id number] INDICATION: Unable to move LEFT thumb. Weakness. TECHNIQUE: Axial T1, axial T2 fat-sat, sagittal T1, sagittal T2, coronal T1, coronal STIR imaging. FINDINGS: Images significantly limited due to motion artifact. Mild cervical curve. No high-grade central canal stenosis. Cord signal is normal. Small protrusions i n the cervical spine at C4-C5 and C5-C6. Partially visualized normal caliber aortic arch. Normal part ially visualized parotid glands and submandibular glands. No cervical lymphadenopathy. Normal caliber proximal subclavian arteries and veins. No evidence of mass or lesion along the brachi al plexus nerve roots bilaterally. No evidence of thoracic outlet syndrome. Normal sternocleidomastoi d and anterior scalene muscles bilaterally. Mild degenerative arthritis AC joints and glenohumeral joints. IMPRESSION: Limited examination due to motion artifact. 1. No evidence of mass or lesion along the brachial plexus nerve roots bilaterally. 2. Normal caliber subclavian and axillary vessels. 3. No evidence of thoracic outlet syndrome. 4. Mild degenerative arthritis in the AC joints and glenohumeral joints bilaterally. 5. See cervical spine MRI report for discussion of cervical spine findings. 6. Somewhat prominent thyroid tissue for patient this age. This could be further evaluated with ultr asound.
== END 2023-08-07 07:06 | disposition home or self-care (01) ==
LOC: RAD 07:05
PROVIDERS: PCP Family Medicine; Visit Provider Psychiatry & Neurology Neurology
DX: R53.1 Weakness (principal); M19.042 Primary osteoarthritis, left hand; M19.041 Primary osteoarthritis, right hand; M19.012 Primary osteoarthritis, left shoulder; M19.011 Primary osteoarthritis, right shoulder; M48.02 Spinal stenosis, cervical region; M50.321 Other cervical disc degeneration at C4-C5 level
CPT/HCPCS: 71550; 72141

== ENCOUNTER 2023-09-04 12:25 | Outpatient (CLI) | payer BC, SELFPAY ==
--- NOTE | 2023-09-04 13:00 | CT_ITS ---
WS: [id number] CT CHEST TECHNIQUE: Contrast enhanced CT of the chest with coronal and sagittal reformatted images. CLINICAL INFORMATION: R91.1 - Solitary pulmonary nodule COMPARISON: 2009 DLP: 264.[address] scans at [facility] use at least one of these dose optimization techniques: automated e xposure control; mA and/or kV adjustment per patient size (includes targeted exams where dose is matc hed to clinical indication); or iterative reconstruction. FINDINGS: Lungs are well aerated. No acute pulmonary infiltrates. No focal pneumonia or pleural fluid. Slight h azy atelectasis in the RIGHT middle lobe. Small area of parenchymal fibrosis RIGHT lower lobe lateral ly. Normal caliber thoracic aorta. Proximal main pulmonary arteries are normal. Mild coronary calcificati on. No mediastinal or hilar lymphadenopathy. No axillary lymphadenopathy. Moderate thoracic kyphosis. Chronic anterior wedging T11. Adrenal glands are normal. Small esophageal hiatal hernia. IMPRESSION: 1. No suspicious pulmonary parenchymal abnormalities. 2. Small area of parenchymal fibrosis RIGHT lower lobe laterally. 3. Slight hazy atelectasis in the lingula. 4. Chronic appearing anterior wedging at T11. 5. No other suspicious findings.
[2023-09-04 13:14] LABS: Blood Urea Nitrogen 32 mg/dL (8-23); Glomerular Filtration Rate 41.4 mL/min (90-130)
== END 2023-09-04 12:26 | disposition home or self-care (01) ==
PROVIDERS: PCP Family Medicine; Visit Provider Family Medicine
DX: R91.1 Solitary pulmonary nodule (principal); J84.10 Pulmonary fibrosis, unspecified; J98.11 Atelectasis; M48.54XA Collapsed vertebra, not elsewhere classified, thoracic region, initial encounter for fracture
CPT/HCPCS: 71260; 82565; 84520; Q9967

== ENCOUNTER 2023-09-15 11:49 | Outpatient (CLI) | payer BC, SELFPAY ==
--- NOTE | 2023-09-15 11:55 | XRR_ITS ---
PROCEDURE INFORMATION: Exam: XR Right Ankle Exam date and time: 09/15/2023 12:11 PM Age: 63 years old Clinical indication: Injury or trauma; Other: Not specified; Blunt trauma; Ankle; Right; Additional info: Trauma to right ankle TECHNIQUE: Imaging protocol: Radiologic exam of the right ankle. Views: 3 or more views. COMPARISON: No relevant prior studies available. FINDINGS: Bones/joints: No fracture or dislocation. Soft tissues: Nonspecific ankle soft tissue swelling. Vascular calcifications. XR/XR ankle RT min 3V* [id number] IMPRESSION: Ankle soft tissue swelling without acute osseous findings.
== END 2023-09-15 11:50 | disposition home or self-care (01) ==
LOC: RAD 11:50
PROVIDERS: PCP Family Medicine; Visit Provider Family Medicine
DX: S99.911A Unspecified injury of right ankle, initial encounter (principal); X58.XXXA Exposure to other specified factors, initial encounter; M25.471 Effusion, right ankle
CPT/HCPCS: 73610

== ENCOUNTER → 2023-10-09 09:54 | Outpatient (BNVA) | payer BC, SELFPAY | PROVIDERS: PCP Family Medicine; Visit Provider Family Medicine | DX: N39.0 Urinary tract infection, site not specified (principal) | CPT/HCPCS: 81000; 87086 ==

== ENCOUNTER 2023-10-22 13:25 | Outpatient (CLI) | payer BC, SELFPAY ==
--- NOTE | 2023-10-22 13:29 | XRR_ITS ---
PROCEDURE INFORMATION: Exam: XR Chest Exam date and time: 10/22/2023 1:42 PM Age: 63 years old Clinical indication: Cough; Additional info: J22 - unspecified acute lower respiratory infection TECHNIQUE: Imaging protocol: Radiologic exam of the chest. Views: 2 views. COMPARISON: CT chest w con* [id number] 09/04/2023 1:18 PM FINDINGS: Lungs: Both lungs demonstrate chronic interstitial coarsening. No lung mass or infiltrate. Pleural spaces: Unremarkable. No pleural effusion. No pneumothorax. Heart/Mediastinum: Unremarkable. No cardiomegaly. Bones/joints: Unremarkable. XR/XR chest 2V insp/exp [id number] IMPRESSION: No acute findings.
== END 2023-10-22 13:26 | disposition home or self-care (01) ==
LOC: RAD 13:27
PROVIDERS: PCP Family Medicine; Visit Provider Family Medicine
DX: J22 Unspecified acute lower respiratory infection (principal)
CPT/HCPCS: 71046

== ENCOUNTER 2024-02-01 16:53 | Observation (INO) | payer BC, SELFPAY ==
[2024-02-01] VITALS (10 sets, daily range): BP systolic 148–174; BP diastolic 75–125; PULSE 127–147; RESP 13–22; TEMP 36.7–36.9; O2SAT 91–98; BMI 24.5; BMI 26.0
--- NOTE | 2024-02-01 16:57 | CTR_ITS ---
PROCEDURE INFORMATION: Exam: CT Head Without Contrast Exam date and time: 02/01/2024 5:16 PM Age: 63 years old Clinical indication: Other: Vomitting; Patient HX: Patient arrives via pov for evaluation of severe headache that started yesterday, and endorses vomiting. Patient endorses more than 10 episodes of nausea; Can't keep anything down. Denies HX of migraines. Currently rating pain 10/10. Also endorses weakness, dizziness. Patient is type 2 diabetic. Patient was admitted to icu twice for sepsis due to utis. TECHNIQUE: Imaging protocol: Computed tomography of the head without contrast. Radiation optimization: All CT scans at this facility use at least one of these dose optimization techniques: automated exposure control; mA and/or kV adjustment per patient size (includes targeted exams where dose is matched to clinical indication); or iterative reconstruction. COMPARISON: MR cervical spin wo con* [id number] 08/07/2023 7:44 AM RADIATION DOSE METRICS: Total DLP (mGy-cm): 983 FINDINGS: Brain: There is mild cerebral atrophy. There are mild deep white matter microangiopathic ischemic changes. No acute hemorrhage is identified. No mass or mass effect is identified. Cerebral ventricles: The ventricles are prominent secondary to atrophy. Paranasal sinuses: The paranasal sinuses are clear. Mastoid air cells: The mastoid air cells are clear. Bones: No acute osseous abnormalities are seen. Soft tissues: The soft tissues are within normal limits. CT/CT head wo con* [id number] IMPRESSION: 1. No acute intracranial pathology. 2. Senescent changes.
[2024-02-01 18:01] LABS: Glucose Point of Care 196 mg/dL (70-110)
[2024-02-01 18:38] LABS: Basophils % 0.2 %; Hematocrit 41.5 % (36-47); Lymphocytes # 0.9 10^3/uL (0.8-4.8); Lymphocytes % 7.8 %; Mean Corpuscular Hemoglobin 29.2 pg (27-33); Mean Corpuscular Volume 88.5 fl (85-98); Mean Platelet Volume 12.6 fL (7.4-10.4); Monocytes # 0.4 10^3/uL (0.2-0.9); Monocytes % 3.7 %; Neutrophils # 9.68 10^3/uL (1.8-7.7); Neutrophils % 87.9 %; Nucleated Red Blood Cells % 0 %; Platelet Count 323 10^3/cmm (157-399); Red Blood Count 4.69 10^6/uL (3.85-5.65); Red Cell Distribution Width 13.4 % (12.1-15.1); White Blood Count 11.01 10^3/uL (3.29-11.43)
[2024-02-01 18:45] LABS: Alanine Aminotransferase 17 U/L (0-33); Albumin Level 4.2 g/dL (3.5-5.2); Alkaline Phosphatase 126 U/L (35-105); Anion Gap 19.9 (5-19); Aspartate Amino Transferase 15 U/L (0-32); Blood Urea Nitrogen 20 mg/dL (8-23); C Reactive Protein 3.3 mg/L (0.0-4.9); Calcium 9.3 mg/dL (8.5-10.5); Carbon Dioxide 20 mmol/L (22-29); Chloride 103 mmol/L (98-107); Globulin 3.9 g/dL (1.3-4.6); Glomerular Filtration Rate 84.5 mL/min (90-130); Glucose 220 mg/dL (65-115); Lipase 14 U/L (13-60); Osmolality Calculated 297 mOsm/kg (285-295); Potassium 3.9 mmol/L (3.5-5.1); Sodium 139 mmol/L (136-145); Total Bilirubin 0.5 mg/dL (0.15-1.2); Total Protein 8.1 g/dL (6.6-8.7)
[2024-02-01 18:46] LABS: Lactic Sepsis W/Reflex 1.4 mmol/L (0.5-2.2)
--- NOTE | 2024-02-01 18:51 | ED_ITS ---
HPI - Headache 2 General: Chief Complaint: Headache Stated Complaint: Severe pain in her head and vommiting Time Seen by Provider: 02/01/24 17:52 History of Present Illness: Patient presents to the ER with complaints of headache dizziness nausea and vomiting, patient states she woke up with it yesterday morning. The day before she felt just fine. Patient has not has headaches but they do not feel like this. This headache started in the back quickly radiated all the way around to the front has been constant in nature. Patient has not found anything that works to make her headache improved but she states standing up or raising it makes her dizziness and nausea vomiting worse. Patient is denying any urinary or bowel symptoms at this time. Patient has had UTI and sepsis x 2 in the past. Review of Systems 2 General: Reports: 10 or more systems reviewed and unremarkable except in HPI and below PFSH ED 2 PFSH: Social History Smoking and tobacco/nicotine status: former use of tobacco/nicotine Alcohol intake: never Substance/Drug Use: never Physical Exam 2 Const: COMMON NORMALS: no acute distress, average body habitus, patient oriented x3, no limitations, healthy appearing, alert and well nourished HENMT: COMMON NORMALS: normocephalic, atraumatic, hearing grossly normal bilaterally, external ears normal, EAC's normal, TM's normal bilaterally, Normal external nose present and moist oral mucous membranes HEAD & SCALP: n ormocephalic and atraumatic NOSE: Normal external nose present EXTERNAL EAR: Yes external ears normal EXTERNAL AUDITORY CANAL: EAC's normal T YMPANIC MEMBRANE: TM's normal bilaterally Eye: COMMON NORMALS: Equal, round and reactive pupils present, EOMs intact bilaterally, conjunctivae normal and no scleral icterus CONJUNCTIVA: Yes conjunctivae normal PUPIL: Yes Equal, round and reactive pupils present Neck/C-Spine: COMMON NORMALS: full ROM, no lymphadenopathy, supple, no meningeal signs, no JVD and Thyroid normal THYROID: Thyroid normal Chest: COMMONS NORMALS: normal inspection of the chest and normal palpation of entire chest wall Resp: COMMON NORMALS: normal respiratory effort, No retractions, No use of accessory muscles and clear to auscultation bilaterally AUSCULTATION: clear to auscultation bilaterally Cardio: COMMON NORMALS: no JVD, regular rhythm, S1 normal heart sound present, S2 normal heart sound present, No gallops present (Cardio), No clicks present (Cardio), No murmurs present (Cardio) and No rub (Cardio); negative for regular rate (Tachycardic) RATE: abnormal rate (Tachycardic) RHYTHM: regular rhythm HEART SOUNDS: S1 normal heart sound present and S2 normal heart sound present GI: COMMON NORMALS: Normal to inspection, nondistended, normoactive bowel sounds present, Soft to palpation, non-tender, No hepatosplenomegaly present and no masses PALPATION: Yes Soft to palpation and Yes No hepatosplenomegaly present Neuro: COMMON NORMALS: patient oriented x3 SENSORIUM/ORIENTATION: Yes alert MENINGEAL SIGNS: Yes no meningeal signs Course 2 Vital Signs: Vital signs: Vital Signs Temperature 98.1 F 02/01/24 16:58 Pulse Rate 132 H 02/01/24 22:53 Respiratory Rate 18 02/01/24 22:53 Blood Pressure 172/91 02/01/24 22:53 Pulse Oximetry 95 02/01/24 22:53 Oxygen Delivery Me thod Room Air 02/01/24 22:31 MDM - Headache Medical Decision Making Patient had lab work including CBC CMP urinalysis, urinalysis showed greater than 100 red blood cells and too numerous to count white blood cells, head CT was negative, abdomen/pelvis CT showed no acute abdominal pelvic process. Patient was given 1 L normal saline, 10 of Reglan, 30 of Toradol, 50 of Benadryl which all improved her headache. Patient stayed tachycardic. Dr. ramachandran was consulted who wanted an EKG, troponins and a D-dimer, she said we can put the patient in CSU or ICU overflow but would not put her on MedSurg. Differential Diagnosis Likely migraine, tension headache and headache; Unlikely subarachnoid hemorrhage, meningitis, sinusitis or postconcussion syndrome Medical Records I reviewed the patient's medical records. Lab Data I reviewed the patient's lab results. 02/01/24 18:17 02/01/24 18:[address] 02/01/24 16:57 IMPRESSION: 1. No acute intracranial pathology. 2. Senescent changes. Abdomen/Pelvis CT 02/01/24 20:58 IMPRESSION: 1. No acute intra-abdominal or pelvic process. 2. Punctate nonobstructing left lower pole renal calculus. 3. Other nonemergent findings above. Laboratory Results WBC 11.01 10^3/uL (3.29-11.43) 02/01/24 18:17 RBC 4.69 10^6/uL (3.85-5.65) 02/01/24 18:17 Hgb 13.70 g/dL (11.27-16.99) 02/01/24 18:17 Hct 41.5 % (36-47) 02/01/24 18:17 MCV 88.5 fl (85-98) 02/01/24 18:17 MCH 29.2 pg (27-33) 02/01/24 18:17 MCHC 33.0 g/dL (30-55) 02/01/24 18:17 RDW 13.4 % (12.1-15.1) 02/01/24 18:17 Plt Count 323 10^3/cmm (157-399) 02/01/24 18:17 MPV 12.6 fL (7.4-10.4) H 02/01/24 18:17 Neut % (Auto) 87.9 % 02/01/24 18:17 Lymph % (Auto) 7.8 % 02/01/24 18:17 [place] % (Auto) 3.7 % 02/01/24 18:17 Eos % (Auto) 0.0 % 02/01/24 18:17 Baso % (Auto) 0.2 % 02/01/24 18:17 Neut # (Auto) 9.68 10^3/uL (1.8-7.7) H 02/01/24 18:17 Lymph # (Auto) 0.9 10^3/uL (0.8-4.8) 02/01/24 18:17 [place] # (Auto) 0.4 10^3/uL (0.2-0.9) 02/01/24 18:17 Eos # (Auto) 0.0 10^3/uL (0.0-0.8) 02/01/24 18:17 Baso # (Auto) 0.0 10^3/uL (0.0-0.1) 02/01/24 18:17 Nucleated RBC % (auto) 0 % 02/01/24 18:17 Nucleated RBCs # 0.0 /100WBC 02/01/24 18:17 Sodium 139 mmol/L (136-145) 02/01/24 18:17 Potassium 3.9 mmol/L (3.5-5.1) 02/01/24 18:17 Chloride 103 mmol/L (98-107) 02/01/24 18:17 Carbon Dioxide 20 mmol/L (22-29) L 02/01/24 18:17 Anion Gap 19.9 (5-19) H 02/01/24 18:17 BUN 20 mg/dL (8-23) 02/01/24 18:17 Creatinine 0.7 mg/dL (0.5-0.9) 02/01/24 18:17 GFR Calculation 84.5 mL/min (90-130) L 02/01/24 18:17 Glucose 220 mg/dL (65-115) H 02/01/24 18:17 POC Glucose 196 mg/dL (70-110) H 02/01/24 17:58 Calculated Osmolality 297 mOsm/kg (285-295) H 02/01/24 18:17 Lactic Acid 1.4 mmol/L (0.5-2.2) 02/01/24 18:17 Calcium 9.3 mg/dL (8.5-10.5) 02/01/24 18:17 Total Bilirubin 0.5 mg/dL (0.15-1.2) 02/01/24 18:17 AST 15 U/L (0-32) 02/01/24 18:17 ALT 17 U/L (0-33) 02/01/24 18:17 Alkaline Phosphatase 126 U/L (35-105) H 02/01/24 18:17 C-Reactive Protein 3.3 mg/L (0.0-4.9) 02/01/24 18:17 Total Protein 8.1 g/dL (6.6-8.7) 02/01/24 18:17 Albumin 4.2 g/dL (3.5-5.2) 02/01/24 18:17 Globulin 3.9 g/dL (1.3-4.6) 02/01/24 18:17 Lipase 14 U/L (13-60) 02/01/24 18:17 Urine Color Yellow (Yellow) 02/01/24 19:22 Urine Appearance Cloudy (CLEAR) A 02/01/24 19:22 Urine pH 5 (5-7) 02/01/24 19:22 Ur Specific [place] 1.020 (1.005-1.030) 02/01/24 19:22 Urine Protein 2+ (Negative) H 02/01/24 19:22 Urine Glucose (UA) 4+ (Normal) H 02/01/24 19:22 Urine Ketones 2+ (Negative) H 02/01/24 19:22 Urine Blood 3+ (Negative) H 02/01/24 19:22 Urine Nitrate Negative (Negative) 02/01/24 19:22 Urine Bilirubin Neg (Negative) 02/01/24 19:22 Urine Urobilinogen Norm mg/dL (Negative) 02/01/24 19:22 Ur Leukocyte Esterase 2+ (Negative) H 02/01/24 19:22 Urine RBC >100 /hpf (0-2) H 02/01/24 19:22 Urine WBC Too numerous to cnt /hpf (0-5) H 02/01/24 19:22 Ur Squamous Epith Cells 5-10 /hpf (0-5) H 02/01/24 19:22 Amorphous Sediment Not Reportable 02/01/24 19:22 Urine Bacteria Trace /hpf (NONE) 02/01/24 19:22 All radiology interpretation(s) finalized by discharge Discharge Plan Discharge Patient Disposition: Admitted As Inpatient Admit Provider: Soumya Ramachandran Clinical Impression: Tachycardia Urinary tract infection Qualifiers: Urinary tract infection type: acute cystitis Hematuria presence: with hematuria Qualified Code(s): N30.01 - Acute cystitis with hematuria Headache Qualifiers: Headache type: unspecified Headache chronicity pattern: acute headache I ntractability: not intractable Qualified Code(s): R51.9 - Headache, unspecified Condition: Stable Coding Level of Care Code ED Blow Moulding Machine Operator for edgar Felipe
[2024-02-01] MEDS: metoclopramide 5 mg/mL SDV 2 mL 10 MG IVP (18:58)
[2024-02-01] MEDS: diphenhydrAMINE 50 mg/mL SDV 1mL IVP (18:58)
[2024-02-01] MEDS: sodium chloride 0.9% 1,000 ML 999 ML IV (18:59)
[2024-02-01] MEDS: ketorolac 30 mg/mL INJ IVP (18:59)
[2024-02-01 19:53] LABS: Bilirubin Urine Neg (Negative); Blood Urine 3+ (Negative); Glucose Urine UA 4+ (Normal); Ketones Urine 2+ (Negative); Leukocyte Esterase Urine 2+ (Negative); Nitrate Urine Negative (Negative); Protein Urine 2+ (Negative); Urine Appearance Cloudy (CLEAR); Urine Color Yellow (Yellow); Urobilinogen Urine Norm (Negative); pH Urine 5 (5-7)
[2024-02-01 19:54] LABS: Add Urine Culture? Yes; Bacteria Urine TRACE /hpf; RBC Urine >100 /hpf (0-2); WBC Urine TOO NUMEROUS TO CNT /hpf (0-5)
[2024-02-01] MEDS: LORazepam 2 mg/mL INJ 10 mL MDV 1 MG IVP (20:10)
--- NOTE | 2024-02-01 20:58 | CTR_ITS ---
PROCEDURE INFORMATION: Exam: CT Abdomen And Pelvis Without Contrast Exam date and time: 02/01/2024 9:10 PM Age: 63 years old Clinical indication: Other: Leukocytosis; Prior surgery; Surgery date: 6+ months; Surgery type: Hip; Additional info: Leukocytosis, UTI, tachycardia TECHNIQUE: Imaging protocol: Computed tomography of the abdomen and pelvis without contrast. Radiation optimization: All CT scans at this facility use at least one of these dose optimization techniques: automated exposure control; mA and/or kV adjustment per patient size (includes targeted exams where dose is matched to clinical indication); or iterative reconstruction. COMPARISON: CT abdomen pelvis w con* [id number] 06/06/2020 6:41 PM RADIATION DOSE METRICS: Total DLP (mGy-cm): 447 FINDINGS: Lungs: Lung bases are grossly clear. Ill-defined area of partially visualized ground-glass in the right middle lobe. Correlate with recent CT chest 09/04/2023. Heart: Heart size is within normal limits. There is no pericardial effusion or pericardial thickening. Diaphragm: Small hiatal hernia. Liver: The liver is normal. No hepatic masses are identified. Gallbladder and biliary ducts: The gallbladder is normal. There is no ductal dilatation. Pancreas: The pancreas is atrophic without obvious abnormality. Spleen: The spleen is normal. Adrenal glands: The adrenal glands are normal. Kidneys and ureters: Punctate nonobstructing left lower pole renal calculus. No other renal calcifications. No hydronephrosis. Right upper pole renal cortical scarring. Stomach and bowel: Limited diverticulosis without evidence of diverticulitis. Of note, the cecum and appendix are in the left upper quadrant. There is no large or small bowel obstruction. There is no evidence of bowel wall thickening. Appendix: A normal appendix is identified. Intraperitoneal space: No inflammatory changes are identified. There is no free fluid or fluid collection seen. There is no pneumoperitoneum. Vasculature: Atherosclerotic calcifications of the aorta are present. No aneurysm is identified. Lymph nodes: Nonspecific calcifications along the course of the common bile duct which appear to be external to the duct may represent small calcified lymph nodes. No enlarged lymph nodes are identified. Urinary bladder: The bladder is unremarkable. Reproductive: The uterus is absent. Bones/joints: No acute osseous abnormalities are seen. Emajgmtl-hz-zejlgy superior endplate compression fracture of L1 , stable. No acute osseous abnormalities are seen. Soft tissues: Tiny periumbilical hernia containing only fat. The soft tissues are otherwise within normal limits. CT/CT kidney stone [id number] IMPRESSION: 1. No acute intra-abdominal or pelvic process. 2. Punctate nonobstructing left lower pole renal calculus. 3. Other nonemergent findings above.
[2024-02-01] MEDS: ciprofloxacin 400 MG/200 ML PREMIX 200 MG IV (21:20)
--- NOTE | 2024-02-01 22:34 | ECG_ITS ---
[facility] Test Date: 2024-02-01 Pat Name: Madelyn Spencer Department: Room: ICU06 Gender: Female Certified Emergency Vehicle Technician: : 1960 Requested By: Kenton Troncoso Order Number: [id number] [place] MD: Alison Mcguire M.D. Measurements Intervals [place] Rate: 132 P: 35 MT: 108 QRS: 54 QRSD: 74 T: 34 QT: 368 QTc: 546 Interpretive Statements SINUS TACHYCARDIA WITH SHORT MT INTERVAL ST DEVIATION AND MODERATE T-WAVE ABNORMALITY, CONSIDER ANTEROLATERAL ISCHEMIA [-0.1+ mV T-WAVE IN V3-V6] Compared to ECG 08/23/2022 14:57:51 Short MT interval now present T-wave abnormality now present Possible ischemia now present Electronically Signed On 02-02-2024 23:54:04 CDT by Alison Mcguire M.D. [id number]
--- NOTE | 2024-02-01 22:45 | PC.NURSE ---
attempted to call report at 0. pts nurse was in a procedure and will call me back
--- NOTE | 2024-02-01 22:48 | PC.NURSE ---
attempted to call report and the nurse is still not available to take report.
[2024-02-01 23:11] LABS: Troponin(5th) Baseline 67 ng/L (0-10)
[2024-02-01 23:25] LABS: D Dimer 0.93 ug/mLFEU (0-0.59)
--- NOTE | 2024-02-01 23:50 | CTR_ITS ---
PROCEDURE INFORMATION: Exam: CTA Chest With Contrast Exam date and time: 02/02/2024 2:19 AM Age: 63 years old Clinical indication: Abnormal findings; Abnormal diagnostic tests; Elevated d-dimer; Additional info: Elevated d dimer tachycardia TECHNIQUE: Imaging protocol: Computed tomographic angiography of the chest with contrast. Exam focused on the arteries. 3D rendering (Not supervised by radiologist): MIP and/or 3D reconstructed images were created by the technologist. Radiation optimization: All CT scans at this facility use at least one of these dose optimization techniques: automated exposure control; mA and/or kV adjustment per patient size (includes targeted exams where dose is matched to clinical indication); or iterative reconstruction. Contrast material: OMNI 350; Contrast volume: 50 ml; Contrast route: INTRAVENOUS (IV); COMPARISON: CT chest w con* [id number] 09/04/2023 1:18 PM RADIATION DOSE METRICS: Total DLP (mGy-cm): 304 FINDINGS: Pulmonary arteries: The pulmonary arteries are adequately visualized to the segmental level. No filling defects are identified to suggest pulmonary artery embolism. The main pulmonary artery is normal in size. There is no evidence of right heart strain. Aorta: Atherosclerotic calcifications of the aorta are present. No aneurysm is identified. Lungs: No pulmonary consolidation or pulmonary infarct. Mild dependent changes in the left posterior lower lobe. 10 x 9 mm nodule in the right middle lobe which appears somewhat flat on sagittal imaging. Pleural spaces: No pleural effusion or pneumothorax. Heart: Mild cardiomegaly. No pericardial effusion or pericardial thickening. Coronary arteries: Moderate coronary artery calcification. Lymph nodes: Multiple mildly enlarged mediastinal lymph nodes. A right paratracheal lymph node measures 17 x 10 mm. No enlarged axillary lymph nodes. No enlarged hilar lymph nodes. Diaphragm: Small hiatal hernia. Bones/joints: No acute osseous abnormalities are seen. Stable T12 compression fracture. Soft tissues: Unremarkable. CT/CT angio chest PE protcl [id number] IMPRESSION: 1. No evidence of pulmonary embolism. 2. 10 x 9 mm nodule in the right middle lobe which appears somewhat flat on sagittal imaging. Recommend three-month follow-up CT chest. 3. Multiple mildly enlarged mediastinal lymph nodes, grossly stable compared to 09/04/2023. Follow-up as indicated. COMMENTS: For both low risk and high risk patients, consider CT Chest at 3 months, PET/CT, or biopsy. (Reference: Sena) REFERENCES: Sena Hilario, et al. Guidelines for Management of Incidental Pulmonary Nodules Detected on CT Images: From the Fleischner Society 2017. Radiology. 2017;284(1):228-243.
[2024-02-01 23:51] LABS: Glucose Point of Care 209 mg/dL (70-110)
[2024-02-02] VITALS (84 sets, daily range): BP systolic 109–183; BP diastolic 58–114; PULSE 70–128; RESP 11–27; TEMP 36.3–36.9; O2SAT 87–98
--- NOTE | 2024-02-02 00:35 | PC.NURSE ---
Pain Upon assessment, patient complaining of indigestion as well as a severe headache at a 7 on a 1-10 numerical scale. Additionally, patient's blood sugar 209. Dr. Ramachandran contacted; orders received for a GI cocktail PO once and 50 mg tramadol PO once. Physician to place orders for insulin.
[2024-02-02] MEDS: TRAMadol 50 mg Tablet PO (00:54)
[2024-02-02] MEDS: lidocaine 2% viscous 15 ML, aluminum-mag hydrox-simethicon 30 ML, sucralfate oral liq 1 GM PO (01:05)
[2024-02-02 01:21] LABS: Troponin 5 2HR 72.07 ng/L (0-10); Troponin 5 2HR Delta 5.07 ABS# (0-10)
--- NOTE | 2024-02-02 02:07 | USCV_ITS ---
Madelyn Spencer Age: 63 Gender: F : 1960 Exam Date: 02/02/2024 08:49 Ordering Phys: Soumya Ramachandran MD Technologist: Exam Location: [facility] [place] Indication: nstemi BP: 155 / 74 HR: 138 Rhythm: Sinus Technical Quality: Adequate MEASUREMENTS (Male / Female) Normal Values 2D ECHO LV Diastolic Diameter PLAX 3.5 cm 4.2 - 5.9 / 3.9 - 5.3 cm IVS Diastolic Thickness 0.9 cm 0.6 - 1.0 / 0.6 - 0.9 cm IVS Systolic Thickness 1.5 cm LVPW Diastolic Thickness 1.0 cm 0.6 - 1.0 / 0.6 - 0.9 cm LVPW Systolic Thickness 1.3 cm LVOT Diameter 2.0 cm LV Ejection Fraction 2D Teich 63.3 % LV Ejection Fraction MOD 2C 57.5 % LV Ejection Fraction 2C AL 57.7 % LA Diameter 3.1 cm RA Systolic Volume 4C AL 22.6 ml RA Systolic Volume 4C MOD 22.4 ml Aorta at Sinotubular Diameter 2.5 cm DOPPLER AV Peak Velocity 127.0 cm/s MV Peak Velocity 111.0 cm/s MV Area PHT 3.9 cm squared Mitral E to A Ratio 0.8 TR Peak Velocity 247.0 cm/s TR Peak Gradient 24.4 mmHg TV Peak E Velocity 68.0 cm/s Right Atrial Pressure 3.0 mmHg Pulmonary Artery Systolic Pressu 27.4 mmHg PV Peak Velocity 79.0 cm/s FINDINGS Left Ventricle Normal left ventricular size and systolic function, EF 58%.no regional wall motion abnormalities. Right Ventricle The right ventricle is normal in size and function. Right Atrium The right atrium is normal in size. Left Atrium Mildly increased left atrial size. Mitral Valve Mild mitral valve regurgitation. Aortic Valve Thickened aortic valve. Tricuspid Valve Trace to mild tricuspid valve regurgitation. Pulmonic Valve No gross abnormalities noted Pericardium Normal pericardium without effusion. Aorta Normal aortic annulus size. IVC Inferior vena cava not visualized. CONCLUSIONS Normal left ventricular size and systolic function, EF 58%. No regional wall motion abnormalities. Mildly increased left atrial size. Mild mitral valve regurgitation. Thickened aortic valve. Trace to mild tricuspid valve regurgitation. There is no pericardial effusion. There are no intracardiac masses. No similar previous studies are available for comparison Dr Alison Mcguire MD FACC (Electronically Signed) Final Date: 02 February 2024 21:32 S
--- NOTE | 2024-02-02 02:17 | P.HP_ITS ---
Providers/Chief Complaint 2 Admitting Physician: Soumya Ramachandran MD Primary Care Provider: Kayode Schilling DO Chief Complaint: Severe pain in her head and vommiting History of Present Illness Madelyn Spencer is a 63 year old female with a past medical history of chronic recurrent UTI, diabetes mellitus, brought to the hospital today with chief complaints of headache. Patient states that the headache started on Thursday morning. She has tried taking Excedrin at home without any significant relief. No associated photophobia. She has had multiple episodes of vomiting and unable to tolerate any oral intake. Denies any abdominal pain or diarrhea. Denies fever chills photophobia she has a history of intermittent headaches, however states that this has been different and more severe. No diagnosed history of migraines. No focal neurodeficits. She was recently noted to have sinus tachycardia with heart rate initially between 1 30-1 40 and also hypertensive with blood pressure of systolic BP 170s. Patient has had some vague chest discomfort and subjective dyspnea. Review of Systems 2 General: Reports: 10 or more systems reviewed and unremarkable except in HPI and below Const: Denies: fever(s), chills or body aches Eyes: Denies: change in vision, blurry vision or photophobia ENMT: Reports: hoarseness; Denies: throat pain, enlarged tonsils, odynophagia or nasal congestion Card: Denies: chest pain, palpitations, irregular heart rhythm, edema, swelling of feet/ankles, lightheadedness, pre-syncope, dyspnea on exertion or orthopnea Resp: Denies: dyspnea, productive cough, non-productive cough, wheezing, stridor, pain on inspiration, change in phlegm color, hemoptysis or chest congestion GI: Denies: abdominal pain, nausea, vomiting, hematemesis, coffee ground emesis, dysphagia, heartburn, diarrhea, constipation, GI cramping, change in stool character, hematochezia or melena : Denies: flank pain, difficulty voiding, dysuria, urinary frequency, urinary urgency, urinary hesitancy or hematuria Musc: Denies: neck pain, back pain, extremity pain, joint swelling, joint warmth or deformity Neuro: Denies: headache(s), numbness in extremities, weakness in extremities, sensory changes, difficulty walking, frequent falls, dizziness, vertigo, behavioral changes, Slurred speech present or seizure-like activity Psych: Denies: anxiety, depression, suicidal ideation or homicidal ideation Endo: Denies: polyuria, polydipsia, tired all the time, cold intolerance or hot flashes [place]/Lymph: Denies: easy bruising or easy bleeding Medications/Allergies Home Medications Medication Instructions Recorded Confirmed Last Taken Type pen needle, diabetic 31 gauge x #100 ea 11/04/22 09/10/23 Unknown Rx 3/16 (BD Ultra-Fine Mini Pen Needle) insulin detemir U-100 100 unit/mL 18 unit (0.18 mL) SUBCUT DAILY #15 01/02/23 11/01/23 Unknown Rx (3 mL) subcutaneous pen (Levemir mL FlexTouch U-100 Insulin) hydromorphone 12 mg 12 mg PO DAILY pain, chronic and 04/14/23 09/10/23 Unknown Rx tablet,extended release 24 hr post surgery 1 month #30 tabs alendronate 70 mg tablet 70 mg PO .qweekly bone health #52 07/27/23 09/10/23 Unknown Rx tabs amoxicillin 875 mg-potassium 1 tab PO BID for uti #14 tabs 07/27/23 09/10/23 Unknown Rx clavulanate 125 mg tablet calcium carbonate 600 mg-vitamin 2 cap PO DAILY bone health #180 07/27/23 09/10/23 Unknown Rx D3 12.5 mcg (500 unit) capsule caps (Calcium 600 with Vitamin D3) famotidine 20 mg tablet (Pepcid AC) 20 mg PO DAILY Stomach #90 tabs 07/27/23 10/22/23 Unknown Rx insulin glargine U-300 conc 300 18 unit (0.06 mL) SUBCUT DAILY 07/27/23 11/01/23 Unknown Rx unit/mL (1.5 mL) subcutaneous pen #4.5 mL (Toujeo SoloStar U-300 Insulin) metoprolol succinate 25 mg 25 mg PO DAILY for heart #90 tabs 07/27/23 11/01/23 Unknown Rx tablet,extended release 24 hr insulin lispro 100 unit/mL See Rx Instructions .Route 10/05/23 11/01/23 Unknown Rx subcutaneous pen (Humalog KwikPen .COMPLEX #15 mL (U-100) Insulin) nitrofurantoin macrocrystal 50 mg 50 mg PO DAILY #90 caps 10/09/23 11/27/23 Unknown Rx capsule pregabalin 200 mg capsule 200 mg PO BID #60 caps 10/09/23 10/09/23 Unknown Rx levofloxacin 500 mg tablet 500 mg PO DAILY #10 tabs 10/22/23 10/22/23 Unknown Rx hydromorphone 8 mg tablet 8 mg PO Q4H PRN Pain 1 month #180 11/27/23 02/02/24 Unknown Rx tabs blood-glucose sensor (Dexcom G6 #3 ea 12/17/23 Unknown Rx Sensor device) blood-glucose transmitter (Dexcom #1 ea 12/17/23 Unknown Rx G6 Transmitter device) hydromorphone 8 mg tablet mg 02/02/24 02/02/24 Unknown History Allergies Allergy/AdvReac Type Severity Reaction Status Date / Time metformin [From Glucophage] Allergy Severe unknown Verified 11/27/23 11:44 fentanyl Allergy Intermediate nausea Verified 11/27/23 11:44 methenamine Allergy Intermediate itching, Verified 11/27/23 11:44 n/v morphine Allergy ADR-Nausea Verified 11/27/23 11:44 cefdinir AdvReac GI symptoms Verified 11/27/23 11:44 PFSH Acute 2 PFSH: Medical History (Updated 02/02/24 @ 04:55 by Soumya Ramachandran MD) Tachycardia Chronic UTI (urinary tract infection) Diabetes Intractable nausea and vomiting Social History Smoking and tobacco/nicotine status: former use of tobacco/nicotine Alcohol intake: never Substance/Drug Use: never Vitals/I&O/Wt Last Vital Signs Temp 98.4 F 02/01/24 23:11 Pulse 117 H 02/02/24 01:45 Resp 18 02/02/24 01:45 BP 169/92 02/02/24 01:00 Pulse Ox 95 02/02/24 01:45 O2 Del Method Room Air 02/01/24 23:15 02/01/24 02/01/24 02/02/24 14:59 22:59 06:59 Intake Total 1200 / 1200 Balance 1200 / 1200 Weight last 48 hrs Weight 62.46 kg Weight 58.967 kg Physical Exam 2 Narrative: General: No acute distress, AO x3 HEENT: PERRLA, pupils bilaterally equal and reactive, pallors not present Chest: Normal vesicular breath sounds, no added sounds, equal good air entry bilaterally CVS: S1-S2 regular, no murmurs, no tachycardia, no gallops, no rubs Abdomen: Soft, nontender, no organomegaly, bowel sounds present Neuro: No focal deficits, no facial deformity, AO x3, power 5/5 in all limbs Data 02/01/24 18:17 02/01/24 18:17 Micro: Microbiology 02/01/24 18:29 Blood Culture - Preliminary Blood SPECIMEN COLLECTED 02/01/24 18:17 Blood Culture - Preliminary Blood SPECIMEN COLLECTED Other data: Radiology Impressions Head CT 02/01/24 16:57 IMPRESSION: 1. No acute intracranial pathology. 2. Senescent changes. Abdomen/Pelvis CT 02/01/24 20:58 IMPRESSION: 1. No acute intra-abdominal or pelvic process. 2. Punctate nonobstructing left lower pole renal calculus. 3. Other nonemergent findings above. Laboratory Results WBC 11.01 10^3/uL (3.29-11.43) 02/01/24 18:17 RBC 4.69 10^6/uL (3.85-5.65) 02/01/24 18:17 Hgb 13.70 g/dL (11.27-16.99) 02/01/24 18:17 Hct 41.5 % (36-47) 02/01/24 18:17 MCV 88.5 fl (85-98) 02/01/24 18:17 MCH 29.2 pg (27-33) 02/01/24 18:17 MCHC 33.0 g/dL (30-55) 02/01/24 18:17 RDW 13.4 % (12.1-15.1) 02/01/24 18:17 Plt Count 323 10^3/cmm (157-399) 02/01/24 18:17 MPV 12.6 fL (7.4-10.4) H 02/01/24 18:17 Neut % (Auto) 87.9 % 02/01/24 18:17 Lymph % (Auto) 7.8 % 02/01/24 18:17 [place] % (Auto) 3.7 % 02/01/24 18:17 Eos % (Auto) 0.0 % 02/01/24 18:17 Baso % (Auto) 0.2 % 02/01/24 18:17 Neut # (Auto) 9.68 10^3/uL (1.8-7.7) H 02/01/24 18:17 Lymph # (Auto) 0.9 10^3/uL (0.8-4.8) 02/01/24 18:17 [place] # (Auto) 0.4 10^3/uL (0.2-0.9) 02/01/24 18:17 Eos # (Auto) 0.0 10^3/uL (0.0-0.8) 02/01/24 18:17 Baso # (Auto) 0.0 10^3/uL (0.0-0.1) 02/01/24 18:17 Nucleated RBC % (auto) 0 % 02/01/24 18:17 Nucleated RBCs # 0.0 /100WBC 02/01/24 18:17 D-Dimer 0.93 ug/mLFEU (0-0.59) H 02/01/24 22:22 Sodium 139 mmol/L (136-145) 02/01/24 18:17 Potassium 3.9 mmol/L (3.5-5.1) 02/01/24 18:17 Chloride 103 mmol/L (98-107) 02/01/24 18:17 Carbon Dioxide 20 mmol/L (22-29) L 02/01/24 18:17 Anion Gap 19.9 (5-19) H 02/01/24 18:17 BUN 20 mg/dL (8-23) 02/01/24 18:17 Creatinine 0.7 mg/dL (0.5-0.9) 02/01/24 18:17 GFR Calculation 84.5 mL/min (90-130) L 02/01/24 18:17 Glucose 220 mg/dL (65-115) H 02/01/24 18:17 POC Glucose 209 mg/dL (70-110) H 02/01/24 23:31 Calculated Osmolality 297 mOsm/kg (285-295) H 02/01/24 18:17 Lactic Acid 1.4 mmol/L (0.5-2.2) 02/01/24 18:17 Calcium 9.3 mg/dL (8.5-10.5) 02/01/24 18:17 Total Bilirubin 0.5 mg/dL (0.15-1.2) 02/01/24 18:17 AST 15 U/L (0-32) 02/01/24 18:17 ALT 17 U/L (0-33) 02/01/24 18:17 Alkaline Phosphatase 126 U/L (35-105) H 02/01/24 18:17 Troponin T Baseline 67 ng/L (0-10) H 02/01/24 22:22 Troponin T 120 Minute 72.07 ng/L (0-10) H 02/02/24 00:39 Delta Troponin T 5.07 ABS# (0-10) 02/02/24 00:39 Troponin T Hi Sens 6Hr 73.71 ng/L (0-10) H 02/02/24 03:44 Troponin T Hi Sens 6Hr Delta 6.71 ng/L (0-12) 02/02/24 03:44 C-Reactive Protein 3.3 mg/L (0.0-4.9) 02/01/24 18:17 Total Protein 8.1 g/dL (6.6-8.7) 02/01/24 18:17 Albumin 4.2 g/dL (3.5-5.2) 02/01/24 18:17 Globulin 3.9 g/dL (1.3-4.6) 02/01/24 18:17 Triglycerides 65 mg/dL (0-150) 02/02/24 00:39 Cholesterol 206 mg/dL (0-200) H 02/02/24 00:39 LDL Cholesterol, Calc 123 mg/dL (50-129) 02/02/24 00:39 HDL Cholesterol 70 mg/dL (60-100) 02/02/24 00:39 LDL/HDL Ratio 1.76 RATIO (0.00-3.22) 02/02/24 00:39 Cholesterol/HDL Ratio 2.94 mg/dL (0.0-4.40) 02/02/24 00:39 Lipase 14 U/L (13-60) 02/01/24 18:17 TSH 0.86 uIU/mL (0.27-4.20) 02/02/24 00:39 Urine Color Yellow (Yellow) 02/01/24 19:22 Urine Appearance Cloudy (CLEAR) A 02/01/24 19:22 Urine pH 5 (5-7) 02/01/24 19:22 Ur Specific [place] 1.020 (1.005-1.030) 02/01/24 19:22 Urine Protein 2+ (Negative) H 02/01/24 19:22 Urine Glucose (UA) 4+ (Normal) H 02/01/24 19:22 Urine Ketones 2+ (Negative) H 02/01/24 19:22 Urine Blood 3+ (Negative) H 02/01/24 19:22 Urine Nitrate Negative (Negative) 02/01/24 19:22 Urine Bilirubin Neg (Negative) 02/01/24 19:22 Urine Urobilinogen Norm mg/dL (Negative) 02/01/24 19:22 Ur Leukocyte Esterase 2+ (Negative) H 02/01/24 19:22 Urine RBC >100 /hpf (0-2) H 02/01/24 19:22 Urine WBC Too numerous to cnt /hpf (0-5) H 02/01/24 19:22 Ur Squamous Epith Cells 5-10 /hpf (0-5) H 02/01/24 19:22 Amorphous Sediment Not Reportable 02/01/24 19:22 Urine Bacteria Trace /hpf (NONE) 02/01/24 19:22 A&P Assessment and plan (1) Headache: Patient with c/o headache over the past 24 hrs, not improving with home treatment CT head without acute intracranial findings prn hydromorphone for pain management Pt typicallytakes po hydromorphone prn at home Qualifiers: Headache chronicity pattern: acute headache Headache type: unspecified Intractability: not intractable Qualified Code(s): R51.9 - Headache, unspecified (2) Intractable nausea and vomiting: Currently improving Prn Zofran for managament CT abdomen without acute pathology no photophobia, fever. If headache and vomiting persist, May need MRI for further evaluation (3) Urinary tract infection: Recurrent UTI Ceftriaxone 1 g iv q24h Pending urine cx typically on methanamine suppression at home Follows with urology at [place] (4) Chronic UTI (urinary tract infection): (5) Elevated troponin: c/o chest discomfort and subjective dyspnea Baseline troponin elevated at 67--> 73 at 2 hrs without significant delta , pending 6 hr trend may be demand ischemia related to tachycardia EKG with sinus tachycardia Additionally also with elevated D dimer Check CTA to evaluate for PE check echocardiogram ASA 325mg now followed by ASA 81mg po daily Further orders dependent on troponin trend, results of CTA and echo (6) Tachycardia: sinus tachycardia on EKG Trop trend as above typically on metoprolol at home Start metoprolol 25mg po now Plan DVT ppx: lovenox Full code Attestations 2 Medical Necessity Statement*: > 2 midnight admission anticipated Coding Level of Care Code Acute Code for Chg Fwd High MDM includes number and complexity of problems actively addressed during encounter, amount and/or complexity of data reviewed/ordered and described risk of complication, morbidity or mortality of management as documented Diagnoses Headache R51.9 Headache chronicity pattern: acute headache Headache type: unspecified Intractability: not intractable Intractable nausea and vomiting R11.2 Urinary tract infection N39.0 Chronic UTI (urinary tract infection) N39.0 Elevated troponin R79.89 Tachycardia R00.0
[2024-02-02] MEDS: iohexol 350 mg/mL 500 mL Btl (per mL) IV (02:26)
[2024-02-02 02:45] LABS: Chol HDL Ratio 2.94 mg/dL (0.0-4.40); Cholesterol 206 mg/dL (0-200); HDL Cholesterol 70 mg/dL (60-100); LDL Cholesterol Calculated 123 mg/dL (50-129); LDL HDL Ratio 1.76 RATIO (0.00-3.22); Thyroid Stimulating Hormone 0.86 uIU/mL (0.27-4.20); Triglycerides 65 mg/dL (0-150)
[2024-02-02] MEDS: metoprolol succinate ER (24 HR) 25 mg Tablet PO (02:52)
[2024-02-02] MEDS: cefTRIAXone 1,000 MG in sodium chloride 0.9% (plus) 50 ML 100 MG IV (02:52)
[2024-02-02] MEDS: aspirin 325 mg Tablet PO (02:52)
[2024-02-02] MEDS: enoxaparin 40 mg/0.4 mL Syringe SUBCUT (02:52)
[2024-02-02] MEDS: sodium chloride 0.9% 1,000 ML 50 ML IV (02:53)
[2024-02-02 04:39] LABS: Troponin 5 6HR 73.71 ng/L (0-10); Troponin 5 6HR Delta 6.71 ng/L (0-12)
--- NOTE | 2024-02-02 04:53 | ECG_ITS ---
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 Measurements Intervals [place] Rate: 100 P: 44 CT: 143 QRS: 62 QRSD: 83 T: 28 QT: 343 QTc: 444 Interpretive Statements SINUS TACHYCARDIA NONSPECIFIC ST & T-WAVE ABNORMALITY ABNORMAL RHYTHM ECG Compared to ECG 02/01/2024 22:34:[address] interval no longer present Possible ischemia no longer present T-wave abnormality still present Electronically Signed On 02-02-2024 23:56:09 CDT by Alison Mcguire M.D. [email or web address]
[2024-02-02] MEDS: pregabalin 100 mg Capsule 200 MG PO ×2 (09:34→19:15)
[2024-02-02] MEDS: aspirin 81 mg EC Tablet PO (09:34)
[2024-02-02] MEDS: pantoprazole DR 40 mg Tablet PO (09:34)
[2024-02-02 09:40] LABS: Glucose Point of Care 107 mg/dL (70-110)
[2024-02-02 18:10] LABS: Glucose Point of Care 110 mg/dL (70-110)
[2024-02-02] MEDS: acetaminophen 325 mg Tablet 650 MG PO (19:15)
[2024-02-02 20:16] LABS: Glucose Point of Care 215 mg/dL (70-110)
[2024-02-02] MEDS: insulin lispro 100 unit/1 mL SUBCUT (20:22)
--- NOTE | 2024-02-02 20:51 | P.PN_ITS ---
Subjective 2 Subjective: She feels she is improving this morning. Denies chest pain or pressure. No trouble breathing. No nausea vomiting or diarrhea. No abdominal pain. Per history obtained from her she has had recurrent urinary tract infection in the past, many of them turning into sepsis. Vitals/I&O/Wt Last Vital Signs Temp 98.1 F 02/02/24 20:00 Pulse 83 02/02/24 20:00 Resp 18 02/02/24 20:00 BP 135/77 02/02/24 20:00 Pulse Ox 94 02/02/24 20:00 O2 Del Method Room Air 02/02/24 20:00 02/02/24 02/02/24 02/02/24 06:59 14:59 22:59 Intake Total 50 / 1250 460 / 460 100 / 560 Balance 50 / 1250 460 / 460 100 / 560 Weight last 48 hrs Weight 62.46 kg Weight 62.46 kg Weight 58.967 kg Physical Exam 2 Narrative: at bedside. Const: COMMON NORMALS: patient oriented x3 and alert GENERAL APPEARANCE: c ooperative ORIENTATION/CONSCIOUSNESS: Yes awake HENMT: COMMON NORMALS: oropharynx normal Neck/C-Spine: COMMON NORMALS: no JVD Resp: COMMON NORMALS: normal respiratory effort and clear to auscultation bilaterally AUSCULTATION: clear to auscultation bilaterally Cardio: COMMON NORMALS: no JVD, regular rhythm, S1 normal heart sound present, S2 normal heart sound present and No murmurs present (Cardio) RHYTHM: regular rhythm HEART SOUNDS: S1 normal heart sound present and S2 normal heart sound present OTHER: Tachycardia improving. GI: COMMON NORMALS: Normal to inspection, nondistended, normoactive bowel sounds present, Soft to palpation and non-tender PALPATION: Yes Soft to palpation Extremity: COMMON NORMALS: no joint enlargement and no pedal edema Neuro: COMMON NORMALS: patient oriented x3 and moves all extremities S ENSORIUM/ORIENTATION: Yes alert Skin: COMMON NORMALS: no rashes or lesions noted GENERAL SKIN EXAM: no rashes or lesions noted Data 02/01/24 18:17 02/01/24 18:17 Micro: Microbiology 02/01/24 18:29 Blood Culture - Preliminary Blood NEGATIVE TO DATE 02/01/24 18:17 Blood Culture - Preliminary Blood NEGATIVE TO DATE A&P Assessment and plan (1) Urinary tract infection: History of recurrent urinary tract infections many of which turned to sepsis from history obtained from her . She is improving. Tachycardia improving. Maintaining blood pressure. Continue ceftriaxone. Reviewed vitals, CBC, D-dimer, chemistry, troponin, UA, CT angiogram chest. Reviewed urine culture. Pending. Discussed with porter sample case. She has an appointment scheduled with urology for assessment on for typically on methanamine suppression at home (2) Intractable nausea and vomiting: Resolved. Currently improving Prn Zofran for managament CT abdomen without acute pathology no photophobia, fever. If headache and vomiting persist, May need MRI for further evaluation (3) Elevated troponin: Abnormal D-dimer, CT angiogram chest reviewed, no evidence of PE. troponin series with moderate elevation but without peak. She denies any chest pain currently. Echocardiogram taken, pending interpretation. Continue aspirin. Beta-santo. (4) Headache: So far resolved. Patient with c/o headache over the past 24 hrs, not improving with home treatment CT head without acute intracranial findings prn hydromorphone for pain management Pt typicallytakes po hydromorphone prn at home Qualifiers: Headache chronicity pattern: acute headache Headache type: unspecified Intractability: not intractable Qualified Code(s): R51.9 - Headache, unspecified (5) Chronic UTI (urinary tract infection): (6) Tachycardia: Improving with treatment of UTI. sinus tachycardia on EKG Trop trend as above typically on metoprolol at home Start metoprolol 25mg po now Plan DVT ppx: lovenox Full code Attestations 2 Medical Necessity Statement*: Continue admission for assessment management of urinary tract infection lady with recurrent UTI with recurrent progression to sepsis. and High MDM includes amount and/or complexity of data reviewed/ordered [ resulted lab(s)/test(s), ordered lab(s)/test(s) and other healthcare professional discussion] as documented Diagnoses Urinary tract infection N39.0 Intractable nausea and vomiting R11.2 Elevated troponin R79.89 Headache R51.9 Headache chronicity pattern: acute headache Headache type: unspecified Intractability: not intractable Chronic UTI (urinary tract infection) N39.0 Tachycardia R00.0
[2024-02-03 00:25] VITALS: BP 143/83; PULSE 75; RESP 16; TEMP 36.9; O2SAT 94
[2024-02-03] MEDS: cefTRIAXone 1,000 MG in sodium chloride 0.9% (plus) 50 ML 100 MG IV (03:04)
[2024-02-03] MEDS: enoxaparin 40 mg/0.4 mL Syringe SUBCUT (03:04)
[2024-02-03] MEDS: metoprolol succinate ER (24 HR) 25 mg Tablet PO (03:04)
[2024-02-03 04:41] VITALS: BP 131/70; PULSE 79; RESP 16; TEMP 36.9; O2SAT 99
[2024-02-03 06:00] VITALS: PULSE 80
[2024-02-03 06:31] LABS: Glucose Point of Care 87 mg/dL (70-110)
[2024-02-03 06:43] LABS: Basophils # 0.1 10^3/uL (0.0-0.1); Eosinophils # 0.2 10^3/uL (0.0-0.8); Eosinophils % 2.5 %; Hematocrit 39.7 % (36-47); Lymphocytes # 2.5 10^3/uL (0.8-4.8); Lymphocytes % 31.9 %; Mean Corpuscular HGB Conc 31.7 g/dL (30-55); Mean Corpuscular Hemoglobin 29.3 pg (27-33); Mean Corpuscular Volume 92.3 fl (85-98); Mean Platelet Volume 13.2 fL (7.4-10.4); Monocytes # 0.6 10^3/uL (0.2-0.9); Monocytes % 7.7 %; Neutrophils # 4.53 10^3/uL (1.8-7.7); Neutrophils % 56.8 %; Nucleated Red Blood Cells % 0 %; Platelet Count 219 10^3/cmm (157-399); Red Cell Distribution Width 13.8 % (12.1-15.1); White Blood Count 7.97 10^3/uL (3.29-11.43)
[2024-02-03 06:57] LABS: Alanine Aminotransferase 15 U/L (0-33); Albumin Level 3.7 g/dL (3.5-5.2); Alkaline Phosphatase 104 U/L (35-105); Blood Urea Nitrogen 22 mg/dL (8-23); Calcium 8.6 mg/dL (8.5-10.5); Carbon Dioxide 21 mmol/L (22-29); Chloride 109 mmol/L (98-107); Globulin 3.4 g/dL (1.3-4.6); Glomerular Filtration Rate 72.4 mL/min (90-130); Glucose 88 mg/dL (65-115); Osmolality Calculated 297 mOsm/kg (285-295); Sodium 142 mmol/L (136-145); Total Bilirubin 0.4 mg/dL (0.15-1.2); Total Protein 7.1 g/dL (6.6-8.7)
[2024-02-03 06:59] LABS: Anion Gap 16.2 (5-19); Aspartate Amino Transferase 19 U/L (0-32); Potassium 4.2 mmol/L (3.5-5.1)
[2024-02-03 07:13] LABS: Glucose Point of Care 136 mg/dL (70-110)
[2024-02-03 08:00] VITALS: BP 168/90; PULSE 93; RESP 18; TEMP 37.1; O2SAT 94
[2024-02-03] MEDS: pantoprazole DR 40 mg Tablet PO (08:27)
[2024-02-03] MEDS: aspirin 81 mg EC Tablet PO (08:27)
[2024-02-03] MEDS: pregabalin 100 mg Capsule 200 MG PO (08:27)
[2024-02-03] MEDS: acetaminophen 325 mg Tablet 650 MG PO (08:38)
--- NOTE | 2024-02-03 10:42 | P.DS_ITS ---
Discharge Providers Date of Admission: 02/01/24 22:00 Date of Discharge: February 03, 2024 Attending Provider at Admission: Soumya Ramachandran MD Attending Provider at Discharge: Ankush Starkey Primary Care Provider: Kayode Schilling DO Diagnoses at Discharge Discharge Diagnosis (1) Urinary tract infection: Status: Acute (2) Intractable nausea and vomiting: Status: Acute (3) Elevated troponin: Status: Acute (4) Headache: Status: Acute Qualifiers: Headache chronicity pattern: acute headache Headache type: unspecified Intractability: not intractable Qualified Code(s): R51.9 - Headache, unspecified (5) Chronic UTI (urinary tract infection): Status: Acute (6) Tachycardia: Status: Acute Reason for Visit Reason for Visit: Severe pain in her head and vommiting Hospital Course Hospital Course 63-year-old lady with history of chronic recurrent urinary tract infection, sepsis, DM2, came in due to headache, vomiting, chest discomfort, was found to have urinary tract infection, started on ceftriaxone, received IV fluid hydration, antiemetics, pain control, symptoms have improved. Tachycardia on presentation, D-dimer with mild abnormality, was assessed by CT chest, there was no evidence of PE, incidentally was found to have 10 x 9 mm nodule in right midd le lobe appearing somewhat flat on sagittal imaging with recommended CT chest in 3 months. Additionally multiple mildly enlarged mediastinal lymph nodes grossly stable. Discussed with her. Please follow-up. CT abdomen pelvis unremarkable other than punctate nonobstructing left lower pole renal calculus. She is overall feeling much better, ambulating, tolerating oral intake, no nausea vomiting, headache, chest pain resolved. Urine culture so far with 30- 40,000 normal kimberly. Please follow-up final result. She has an appointment to be seen by urology on to further assess recurrent complicated UTI. Moderate troponin elevation, 67-72-73. Echocardiogram was obtained, showed normal ejection fraction, no regional wall motion abnormality. Mild increase in left atrial size. Troponin ovation likely demand due to significant tachycardia on presentation secondary to urinary tract infection, however, discussed with her possibility of underlying coronary disease. Please follow-up with nonemergent stress testing/cardiac risk stratification. She is started on aspirin, statin. Continues on beta-santo. Continue to optimize cardiac risk factors. Physical Exam Narrative: at bedside. Const: COMMON NORMALS: patient oriented x3 and alert GENERAL APPEARANCE: cooperative ORIENTATION/CONSCIOUSNESS: Yes awake HENMT: COMMON NORMALS: oropharynx normal Neck/C-Spine: COMMON NORMALS: no JVD Resp: COMMON NORMALS: normal respiratory effort and clear to auscultation bilaterally AUSCULTATION: clear to auscultation bilaterally Cardio: COMMON NORMALS: no JVD, regular rhythm, S1 normal heart sound present, S2 normal heart sound present and No murmurs present (Cardio) RHYTHM: regular rhythm HEART SOUNDS: S1 normal heart sound present and S2 normal heart sound present OTHER: Tachycardia improving. GI: COMMON NORMALS: Normal to inspection, nondistended, normoactive bowel sounds present, Soft to palpation and non-tender PALPATION: Yes Soft to palpation Extremity: COMMON NORMALS: no joint enlargement and no pedal edema Neuro: COMMON NORMALS: patient oriented x3 and moves all extremities SENSORIUM/ORIENTATION: Yes alert Skin: COMMON NORMALS: no rashes or lesions noted GENERAL SKIN EXAM: no rashes or lesions noted Discharge Data Studies Completed and Pending Completed Studies During Hospitalization Category Date Time Status CT abdomen renal stone [CT kidney stone 09301] Stat Cat Scan 02/01/24 20:[address] head wo con* [id number] Stat Cat Scan 02/01/24 16:57 Completed CTA PE [CT angio chest PE protcl [id number]] Routine Cat Scan 02/01/24 23:50 Completed CV. echo complete* [id number] Routine Ultrasound 02/02/24 02:07 Completed Pending at discharge Category Date Time Status Blood Culture Stat Lab 02/01/24 18:29 Results Urine Culture Stat Lab 02/01/24 19:22 Results Radiology Impressions Head CT 02/01/24 16:57 IMPRESSION: 1. No acute intracranial pathology. 2. Senescent changes. Abdomen/Pelvis CT 02/01/24 20:58 IMPRESSION: 1. No acute intra-abdominal or pelvic process. 2. Punctate nonobstructing left lower pole renal calculus. 3. Other nonemergent findings above. Chest CTA 02/01/24 23:50 IMPRESSION: 1. No evidence of pulmonary embolism. 2. 10 x 9 mm nodule in the right middle lobe which appears somewhat flat on sagittal imaging. Recommend three-month follow-up CT chest. 3. Multiple mildly enlarged mediastinal lymph nodes, grossly stable compared to 09/04/2023. Follow-up as indicated. COMMENTS: For both low risk and high risk patients, consider CT Chest at 3 months, PET/CT, or biopsy. (Reference: Sena) REFERENCES: [place]a Hilario et al. Guidelines for Management of Incidental Pulmonary Nodules Detected on CT Images: From the Fleischner Society 2017. Radiology. 2017;284(1):228-243. Laboratory Results WBC 7.97 10^3/uL (3.29-11.43) 02/03/24 06:14 RBC 4.30 10^6/uL (3.85-5.65) 02/03/24 06:14 Hgb 12.60 g/dL (11.27-16.99) 02/03/24 06:14 Hct 39.7 % (36-47) 02/03/24 06:14 MCV 92.3 fl (85-98) 02/03/24 06:14 MCH 29.3 pg (27-33) 02/03/24 06:14 MCHC 31.7 g/dL (30-55) 02/03/24 06:14 RDW 13.8 % (12.1-15.1) 02/03/24 06:14 Plt Count 219 10^3/cmm (157-399) 02/03/24 06:14 MPV 13.2 fL (7.4-10.4) H 02/03/24 06:14 Neut % (Auto) 56.8 % 02/03/24 06:14 Lymph % (Auto) 31.9 % 02/03/24 06:14 [place] % (Auto) 7.7 % 02/03/24 06:14 Eos % (Auto) 2.5 % 02/03/24 06:14 Baso % (Auto) 1.0 % 02/03/24 06:14 Neut # (Auto) 4.53 10^3/uL (1.8-7.7) 02/03/24 06:14 Lymph # (Auto) 2.5 10^3/uL (0.8-4.8) 02/03/24 06:14 [place] # (Auto) 0.6 10^3/uL (0.2-0.9) 02/03/24 06:14 Eos # (Auto) 0.2 10^3/uL (0.0-0.8) 02/03/24 06:14 Baso # (Auto) 0.1 10^3/uL (0.0-0.1) 02/03/24 06:14 Nucleated RBC % (auto) 0 % 02/03/24 06:14 Nucleated RBCs # 0.0 /100WBC 02/03/24 06:14 D-Dimer 0.93 ug/mLFEU (0-0.59) H 02/01/24 22:22 Sodium 142 mmol/L (136-145) 02/03/24 06:14 Potassium 4.2 mmol/L (3.5-5.1) 02/03/24 06:14 Chloride 109 mmol/L (98-107) H 02/03/24 06:14 Carbon Dioxide 21 mmol/L (22-29) L 02/03/24 06:14 Anion Gap 16.2 (5-19) 02/03/24 06:14 BUN 22 mg/dL (8-23) 02/03/24 06:14 Creatinine 0.8 mg/dL (0.5-0.9) 02/03/24 06:14 GFR Calculation 72.4 mL/min (90-130) L 02/03/24 06:14 Glucose 88 mg/dL (65-115) 02/03/24 06:14 POC Glucose 87 mg/dL (70-110) 02/03/24 06:27 Calculated Osmolality 297 mOsm/kg (285-295) H 02/03/24 06:14 Lactic Acid 1.4 mmol/L (0.5-2.2) 02/01/24 18:17 Calcium 8.6 mg/dL (8.5-10.5) 02/03/24 06:14 Total Bilirubin 0.4 mg/dL (0.15-1.2) 02/03/24 06:14 AST 19 U/L (0-32) 02/03/24 06:14 ALT 15 U/L (0-33) 02/03/24 06:14 Alkaline Phosphatase 104 U/L (35-105) 02/03/24 06:14 Troponin T Baseline 67 ng/L (0-10) H 02/01/24 22:22 Troponin T 120 Minute 72.07 ng/L (0-10) H 02/02/24 00:39 Delta Troponin T 5.07 ABS# (0-10) 02/02/24 00:39 Troponin T Hi Sens 6Hr 73.71 ng/L (0-10) H 02/02/24 03:44 Troponin T Hi Sens 6Hr Delta 6.71 ng/L (0-12) 02/02/24 03:44 C-Reactive Protein 3.3 mg/L (0.0-4.9) 02/01/24 18:17 Total Protein 7.1 g/dL (6.6-8.7) 02/03/24 06:14 Albumin 3.7 g/dL (3.5-5.2) 02/03/24 06:14 Globulin 3.4 g/dL (1.3-4.6) 02/03/24 06:14 Triglycerides 65 mg/dL (0-150) 02/02/24 00:39 Cholesterol 206 mg/dL (0-200) H 02/02/24 00:39 LDL Cholesterol, Calc 123 mg/dL (50-129) 02/02/24 00:39 HDL Cholesterol 70 mg/dL (60-100) 02/02/24 00:39 LDL/HDL Ratio 1.76 RATIO (0.00-3.22) 02/02/24 00:39 Cholesterol/HDL Ratio 2.94 mg/dL (0.0-4.40) 02/02/24 00:39 Lipase 14 U/L (13-60) 02/01/24 18:17 TSH 0.86 uIU/mL (0.27-4.20) 02/02/24 00:39 Urine Color Yellow (Yellow) 02/01/24 19:22 Urine Appearance Cloudy (CLEAR) A 02/01/24 19:22 Urine pH 5 (5-7) 02/01/24 19:22 Ur Specific Star 1.020 (1.005-1.030) 02/01/24 19:22 Urine Protein 2+ (Negative) H 02/01/24 19:22 Urine Glucose (UA) 4+ (Normal) H 02/01/24 19:22 Urine Ketones 2+ (Negative) H 02/01/24 19:22 Urine Blood 3+ (Negative) H 02/01/24 19:22 Urine Nitrate Negative (Negative) 02/01/24 19:22 Urine Bilirubin Neg (Negative) 02/01/24 19:22 Urine Urobilinogen Norm mg/dL (Negative) 02/01/24 19:22 Ur Leukocyte Esterase 2+ (Negative) H 02/01/24 19:22 Urine RBC >100 /hpf (0-2) H 02/01/24 19:22 Urine WBC Too numerous to cnt /hpf (0-5) H 02/01/24 19:22 Ur Squamous Epith Cells 5-10 /hpf (0-5) H 02/01/24 19:22 Amorphous Sediment Not Reportable 02/01/24 19:22 Urine Bacteria Trace /hpf (NONE) 02/01/24 19:22 Vitals Last Vital Signs Temp 98.7 F 02/03/24 08:00 Pulse 93 02/03/24 08:00 Resp 18 02/03/24 08:00 BP 168/90 02/03/24 08:00 Pulse Ox 94 02/03/24 08:00 O2 Del Method Room Air 02/03/24 08:00 Discharge Plan Discharge Patient Disposition: Home Condition: Stable Prescriptions: New aspirin 81 mg Tablet,Delayed Release (Dr/Ec) 81 mg PO DAILY Qty: 90 0RF atorvastatin 40 mg tablet 40 mg PO DAILY Qty: 90 0RF cefdinir 300 mg capsule 300 mg PO BID 10 Days Qty: 20 0RF Continued (DME) pen needle, diabetic [BD Ultra-Fine Mini Pen Needle] 31 gauge x 3/16 needle See Rx Instructions .Route Qty: 100 3RF Rx Instructions: As directed hydromorphone 8 mg tablet 8 mg PO Q4H MDD 6 tabs per day PRN (Reason: Pain) 30 Days Qty: 180 0RF Hold Instructions: Resume on 06/16/20. donot take with tylenol with kamilah BryantoStar U-300 Insulin 300 unit/mL (1.5 mL) insulin pen 18 unit SUBCUT DAILY Qty: 4.5 3RF metoprolol succinate 25 mg tablet extended release 24 hr 25 mg PO DAILY Qty: 90 3RF alendronate 70 mg tablet 70 mg PO .qweekly Qty: 52 0RF calcium carbonate-vitamin D3 [Calcium 600 with Vitamin D3] 600 mg-12.5 mcg (500 unit) capsule 2 cap PO DAILY Qty: 180 3RF famotidine [Pepcid AC] 20 mg tablet 20 mg PO DAILY Qty: 90 1RF pregabalin 200 mg capsule 200 mg PO BID Qty: 60 5RF insulin lispro [Humalog KwikPen Insulin] 100 unit/mL insulin pen See Rx Instructions .ROUTE .COMPLEX Qty: 15 12RF Dose Instruction: INJECT 5 UNITS UNDER THE SKIN THREE TIMES DAILY PRIOR TO MEALS Rx Instructions: INJECT UNITS UNDER THE SKIN THREE TIMES DAILY PRIOR TO MEALS PER SLIDING SCALE. (DME) Dexcom G6 Sensor Device See Rx Instructions .Route Qty: 3 12RF Rx Instructions: As directed (DME) Dexcom G6 Transmitter Device See Rx Instructions .Route Qty: 1 3RF Rx Instructions: As directed Held nitrofurantoin macrocrystal 50 mg capsule 50 mg PO DAILY Qty: 90 1RF Hold Instructions: Resume on 02/13/24. Rx Instructions: must administer with a meal/food Discharge Orders: Discharge Order (Routine); Ordered 02/03/24 Ordered By: Ankush Starkey Referrals: Kayode Schilling, [Primary Care Provider] - 4-7 days (We have notified your physician's clinic of the need for a follow-up appointment to be scheduled. If you have not heard from them within the next 2 business days, please call them directly. ) Discharge Diet: Cardiac Discharge Activity: Increase activity as tolerated Patient Instructions: Aspirin (By mouth), Atorvastatin (By mouth), Cefdinir (By mouth), Urinary Tract Infection in Women (DC), Acute Nausea and Vomiting (DC) Activity Restrictions/Additional Instructions: Follow-up with your primary doctor for reassessment after urinary tract infection, with frequent recurrent infections with developing sepsis. Urine culture is still pending, please have your primary doctor follow-up the final result with you. Follow-up with urology as per your appointment for additional assessment of recu rrent urinary infections with frequent sepsis. Follow-up with your primary doctor also for further cardiac assessment, referral for nonemergent stress testing. On presentation with active response to infection with fast heart rate your troponin was moderately elevated. Echocardiogram was good. You would benefit from risk stratification for coronary disease. You are started on aspirin, cholesterol medication. Please follow-up with your primary doctor also regarding a spot/nodule of 10 x 9 mm in the right middle lobe seen incidentally on CT scan. 3 months follow-up is recommended. Please follow-up with your primary doctor also regarding incidentally seen mildly enlarged lymph nodes in your chest. These appear stable since August. Discharge Attestations Time Spent in Discharge Care*: greater than 30 min Quality Metrics Clinical Quality Measures [ No reported AMI, CVA or VTE this stay] Coding Level of Care Code 73816 Total time (in minutes) for Discharge: 55 Diagnoses Urinary tract infection N39.0 Intractable nausea and vomiting R11.2 Elevated troponin R79.89 Headache R51.9 Headache chronicity pattern: acute headache Headache type: unspecified Intractability: not intractable Chronic UTI (urinary tract infection) N39.0 Tachycardia R00.0
[2024-02-03] MEDS: insulin lispro 100 unit/1 mL SUBCUT (11:40)
--- NOTE | 2024-02-03 11:42 | PC.NURSE ---
Dexcon reader pt BS 266. Insulin given per order
[2024-02-03 12:28] VITALS: BP 168/90; PULSE 93; RESP 18; TEMP 37.1; O2SAT 94
== END 2024-02-03 12:15 | disposition home or self-care (01) ==
LOC: ER 21:54 → ICU 22:18 → MEDSURG 02-03 09:58 → ICU 02-04 06:48
PROVIDERS: Emergency Medicine; Admitting Provider Student in an Organized Health Care Education/Training Program; Emergency Provider Emergency Medicine; PCP Family Medicine; Visit Provider Internal Medicine
DX: N39.0 Urinary tract infection, site not specified (principal); R11.2 Nausea with vomiting, unspecified; R79.89 Other specified abnormal findings of blood chemistry; R51.9 Headache, unspecified; R00.0 Tachycardia, unspecified; E11.9 Type 2 diabetes mellitus without complications; I10 Essential (primary) hypertension; Z79.4 Long term (current) use of insulin; Z87.891 Personal history of nicotine dependence
CPT/HCPCS: 36415; 36416; 70450; 71275; 74176; 80053; 80061; 81001; 82962; 83605; 83690; 84443; 84484; 85025; 85378; 86140; 87040; 87077; 87086; 87186; 93005; 93306; 96365; 96372; 96374; 96375; 96376; 99285; G0378; J0696; J0744; J1200; J1650; J1815; J1885; J2060; J2765; J7030; Q9967

== ENCOUNTER → 2024-02-09 13:06 | Outpatient (BNVA) | payer BC, SELFPAY | PROVIDERS: PCP Family Medicine; Visit Provider Family Medicine | DX: N39.0 Urinary tract infection, site not specified (principal) | CPT/HCPCS: 81000 ==

== ENCOUNTER 2024-03-28 20:09 | Inpatient (IN) | payer BC, SELFPAY ==
[2024-03-28 20:10] VITALS: BP 110/79; PULSE 122; RESP 24; TEMP 36.9; O2SAT 95; BMI 22.6
--- NOTE | 2024-03-28 20:28 | XRR_ITS ---
PROCEDURE INFORMATION: Exam: XR Chest Exam date and time: 03/28/2024 8:53 PM Age: 64 years old Clinical indication: Other: Body aches; Additional info: Body aches, chills TECHNIQUE: Imaging protocol: Radiologic exam of the chest. Views: 1 view. COMPARISON: CT angio chest PE prot [id number] 02/02/2024 2:19 AM FINDINGS: Lungs: Similar chronic interstitial coarsening. No focal airspace consolidation or evidence of pulmonary edema. Pleural spaces: Unremarkable. No pleural effusion. No pneumothorax. Heart/Mediastinum: Unremarkable. No cardiomegaly. Bones/joints: Unremarkable. XR/XR chest 1V portable [id number] IMPRESSION: No acute cardiopulmonary findings.
--- NOTE | 2024-03-28 20:30 | W.ED.GENADLT ---
HPI - General Adult General: Chief complaint: Nausea/Vomiting/Diarrhea Stated complaint: Vomiting,Headace Time Seen by Provider: 03/28/24 20:17 Source: patient and family Mode of arrival: wheelchair Limitations: no limitations History of Present Illness: This patient was brought to the emergency department by family. She states that since approximately Thursday she developed headache body aches and chills and has had repetitive vomiting. She states the headache which is not unusual for her came on as usual in a gradual fashion and has abated. She is left with the other physical symptoms as described. No focal weakness numbness difficulty with speech motor activity etc. other than what was previously present prior to Thursday. She has a history of frequent UTIs and was hospitalized with significant infection in the past. She apparently takes a prophylactic antibiotic to help prevent urinary tract infections. She states that others in her home have been sick with upper respiratory symptoms of uncertain etiology. She has a insulin requiring diabetic. She denies any dysuria or diarrhea. She states that has had a recent upper arm fracture and wears a splint because of that condition. She is also had a history of nerve transposition in her left arm and was scheduled for the same in her right arm. Associated symptoms: Reports nausea and vomiting; Deny chest pain, dyspnea, rash, palpitations or syncope Related Data Previous Rx's Medication Instructions Recorded pen needle, diabetic 31 gauge x #100 ea 11/04/2210/23 (BD Ultra-Fine Mini Pen Needle) alendronate 70 mg tablet 70 mg PO .qweekly bone health #52 07/27/23 tabs calcium carbonate 600 mg-vitamin 2 cap PO DAILY bone health #180 07/27/23 D3 12.5 mcg (500 unit) capsule caps (Calcium 600 with Vitamin D3) famotidine 20 mg tablet (Pepcid AC) 20 mg PO DAILY Stomach #90 tabs 07/27/23 metoprolol succinate 25 mg 25 mg PO DAILY for heart #90 tabs 07/27/23 tablet,extended release 24 hr insulin lispro 100 unit/mL See Rx Instructions .Route 10/05/23 subcutaneous pen (Humalog KwikPen .COMPLEX #15 mL (U-100) Insulin) pregabalin 200 mg capsule 200 mg PO BID #60 caps 10/09/23 blood-glucose sensor (Dexcom G6 #3 ea 12/17/23 Sensor device) blood-glucose transmitter (Dexcom #1 ea 12/17/23 G6 Transmitter device) aspirin 81 mg tablet,delayed 81 mg PO DAILY #90 tabs 02/03/24 release atorvastatin 40 mg tablet 40 mg PO DAILY #90 tabs 02/03/24 hydromorphone 8 mg tablet 8 mg PO Q4H PRN Pain 1 month #180 02/09/24 tabs pen needle, diabetic 31 gauge x #1,200 ea 02/09/24/16 (BD Ultra-Fine Mini Pen Needle) amoxicillin 875 mg tablet 875 mg PO BID group b strep #14 03/08/24 tabs insulin glargine U-300 conc 300 18 unit (0.06 mL) SUBCUT DAILY 03/09/24 unit/mL (1.5 mL) subcutaneous pen #4.5 mL (T[employer] SoloStar U-300 Insulin) nitrofurantoin macrocrystal 50 mg 50 mg PO DAILY #90 caps 03/09/24 capsule Allergies Allergy/AdvReac Type Severity Reaction Status Date / Time metformin [From Glucophage] Allergy Severe unknown Verified 03/08/24 11:41 fentanyl Allergy Intermediate nausea Verified 03/08/24 11:41 methenamine Allergy Intermediate itching, Verified 03/08/24 11:41 n/v diphenhydramine Allergy ADR-Anxiety Verified 03/28/24 20:14 [From Benadryl] morphine Allergy ADR-Nausea Verified 03/08/24 11:41 cefdinir AdvReac GI symptoms Verified 03/08/24 11:41 Review of Systems Const: Reports: chills and body aches Eyes: Denies: change in vision ENMT: Denies: throat pain, nasal discharge or nasal congestion Card: Denies: chest pain, palpitations, irregular heart rhythm, syncope or pre-syncope Resp: Denies: dyspnea, productive cough or non-productive cough GI: Reports: nausea and vomiting; Denies: abdominal pain, hematemesis or diarrhea : Denies: flank pain, difficulty voiding, dysuria, urinary frequency or urinary hesitancy Musc: Reports: extremity pain; Denies: neck pain or back pain Skin/Breast: Denies: rash or pruritus Neuro: Denies: numbness in extremities, weakness in extremities or dizziness PFSH ED PFSH: Medical History Tachycardia Chronic UTI (urinary tract infection) Diabetes Intractable nausea and vomiting Social History Smoking and tobacco/nicotine status: never used tobacco/nicotine Alcohol intake: never Substance/Drug Use: never Physical Exam Narrative: EXAM NARRATIVE: She is alert but actively retching during examination. She makes good eye contact and speech is goal-directed Const: COMMON NORMALS: average body habitus, patient oriented x3 and alert GENERAL APPEARANCE: cooperative HENMT: COMMON NORMALS: normocephalic, Normal nasal mucous membranes and turbinates present, moist oral mucous membranes and oropharynx normal HEAD & SCALP: normocephalic FACE & SINUS: normal facial exam NOSE: Normal nasal mucous membranes and turbinates present Eye: COMMON NORMALS: Equal, round and reactive pupils present, EOMs intact bilaterally, conjunctivae normal and no scleral icterus CONJUNCTIVA: Yes conjunctivae normal PUPIL: Yes Equal, round and reactive pupils present Neck/C-Spine: COMMON NORMALS: full ROM, no lymphadenopathy, no meningeal signs and no JVD Chest: COMMONS NORMALS: normal inspection of the chest Resp: COMMON NORMALS: normal respiratory effort, No retractions, No use of accessory muscles and clear to auscultation bilaterally EFFORT & INSPECTION: Yes able to speak in complete sentences AUSCULTATION: clear to auscultation bilaterally Cardio: COMMON NORMALS: no JVD, regular rhythm, No murmurs present (Cardio) and Peripheral pulses 2+ throughout RATE: tachycardic RHYTHM: regular rhythm PERIPHERAL PULSES: Peripheral pulses 2+ throughout GI: COMMON NORMALS: Soft to palpation and non-tender PALPATION: Yes Soft to palpation : COMMON NORMALS: Yes no CVA tenderness BLADDER/KIDNEY EXAM: Yes no CVA tenderness Back/Pelvis: COMMON NORMALS: no CVA tenderness, thoracic and lumbar spine normal to inspection, no thoracic nor lumbar tenderness and thoraco-lumbar ROM normal Extremity: NARRATIVE EXTREMITY EXAM: Per right upper arm is in a cold activation splint and she has a sling on the right arm. The remainder of her extremity exam is unremarkable for any deformity and she has normal range of motion. No joint enlargement or erythema. Neuro: COMMON NORMALS: patient oriented x3, moves all extremities and no focal motor deficits SENSORIUM/ORIENTATION: Yes alert MENINGEAL SIGNS: Yes no meningeal signs CRANIAL NERVES: Yes CN normal except as noted Skin: COMMON NORMALS: no rashes or lesions noted, no wounds and turgor normal GENERAL SKIN EXAM: no rashes or lesions noted and turgor normal Course Reevaluation(s): Reevaluation #1: Patient is improving she is not having more retching at this time. She received 1 L of IV fluids and second liter is starting to infuse. Her serum ketones are negative but she does have significant volume depletion and her urinalysis strongly supports pyelonephritis. Discussed treatment options with the family and given her clinical history as well as her current picture with her remaining tachycardic period of observation certainly appropriate. She does not have any findings at this time to suggest sepsis; her Qsofa score is 1; her heart rate is coming down responding to fluids she is not altered or hypotensive or tachypneic. Time: 22:39 Consultations: Consultation #1: Discussed with the overnight hospitalist Dr. Starkey who agreed to place the patient in observation but did request a noncontrast renals scan to ensure no evidence of obstructive uropathy. Time: 22:40 Vital Signs: Vital signs: Vital Signs Temperature 98.4 F 03/28/24 20:10 Pulse Rate 116 H 03/28/24 22:10 Respiratory Rate 19 H 03/28/24 22:10 Blood Pressure 170/93 03/28/24 22:10 Pulse Oximetry 93 03/28/24 22:10 Oxygen Delivery Me thod Room Air 03/28/24 22:10 MDM - General Adult Medical Decision Making Patient initially presented to the hospital emergency department as noted in the HPI. She had been having bodyaches and chills without documented fever and repetitive vomiting over the past 48 hours. There is been others at home have been ill with upper respiratory symptoms. She has a history of insulin requiring diabetes as well as recurrent UTIs. Differential included potential of respiratory contributions to her current presentation including COVID-19 etc. Also of concern was whether she was volume depleted, was in DKA or HHS, COVID antigen and chest x-ray were also obtained. She had notable leukocytosis, volume depletion but negative serum ketones, glucose of 256 with a slight elevation in anion gap and a lactate of 2 3. Urinalysis shows significant pyuria bacteria supportive of likely urinary tract source given the other findings. She is being continue with fluid hydration, empiric IV antibiotics will be placed in observation status for continued fluid resuscitation, monitoring response to antibiotic therapy and controlling her blood sugars. qSOFA score is 1 and her risk of sepsis at this time is low. Medical Records I reviewed the patient's medical records. Lab Data I reviewed the patient's lab results. 03/28/24 20:30 03/28/24 20:30 Radiology Impressions Chest X-Ray 03/28/24 20:28 IMPRESSION: No acute cardiopulmonary findings. Laboratory Results WBC 11.83 10^3/uL (3.29-11.43) H 03/28/24 20:30 RBC 5.01 10^6/uL (3.85-5.65) 03/28/24 20:30 Hgb 14.30 g/dL (11.27-16.99) 03/28/24 20:30 Hct 44.7 % (36-47) 03/28/24 20:30 MCV 89.2 fl (85-98) 03/28/24 20:30 MCH 28.5 pg (27-33) 03/28/24 20:30 MCHC 32.0 g/dL (30-55) 03/28/24 20:30 RDW 13.2 % (12.1-15.1) 03/28/24 20:30 Plt Count 372 10^3/cmm (157-399) 03/28/24 20:30 MPV 12.2 fL (7.4-10.4) H 03/28/24 20:30 Neut % (Auto) 79.7 % 03/28/24 20:30 Lymph % (Auto) 13.2 % 03/28/24 20:30 Porter % (Auto) 6.1 % 03/28/24 20:30 Eos % (Auto) 0.1 % 03/28/24 20:30 Baso % (Auto) 0.3 % 03/28/24 20:30 Neut # (Auto) 9.44 10^3/uL (1.8-7.7) H 03/28/24 20:30 Lymph # (Auto) 1.6 10^3/uL (0.8-4.8) 03/28/24 20:30 Porter # (Auto) 0.7 10^3/uL (0.2-0.9) 03/28/24 20:30 Eos # (Auto) 0.0 10^3/uL (0.0-0.8) 03/28/24 20:30 Baso # (Auto) 0.0 10^3/uL (0.0-0.1) 03/28/24 20:30 Nucleated RBC % (auto) 0 % 03/28/24 20:30 Nucleated RBCs # 0.0 /100WBC 03/28/24 20:30 Sodium 140 mmol/L (136-145) 03/28/24 20:30 Potassium 4.3 mmol/L (3.5-5.1) 03/28/24 20:30 Chloride 98 mmol/L (98-107) 03/28/24 20:30 Carbon Dioxide 24 mmol/L (22-29) 03/28/24 20:30 Anion Gap 22.3 (5-19) H 03/28/24 20:30 BUN 29 mg/dL (8-23) H 03/28/24 20:30 Creatinine 1.0 mg/dL (0.5-0.9) H 03/28/24 20:30 GFR Calculation 55.8 mL/min (90-130) L 03/28/24 20:30 Glucose 256 mg/dL (65-115) H 03/28/24 20:30 Calculated Osmolality 305 mOsm/kg (285-295) H 03/28/24 20:30 Lactic Acid 2.2 mmol/L (0.5-2.2) 03/28/24 20:30 Calcium 9.7 mg/dL (8.5-10.5) 03/28/24 20:30 Total Bilirubin 0.3 mg/dL (0.15-1.2) 03/28/24 20:30 AST 14 U/L (0-32) 03/28/24 20:30 ALT 22 U/L (0-33) 03/28/24 20:30 Alkaline Phosphatase 179 U/L (35-105) H 03/28/24 20:30 Total Protein 8.9 g/dL (6.6-8.7) H 03/28/24 20:30 Albumin 4.1 g/dL (3.5-5.2) 03/28/24 20:30 Globulin 4.8 g/dL (1.3-4.6) H 03/28/24 20:30 Urine Color Yellow (Yellow) 03/28/24 22:06 Urine Appearance Turbid (CLEAR) A 03/28/24 22:06 Urine pH 5 (5-7) 03/28/24 22:06 Ur Specific [place] 1.020 (1.005-1.030) 03/28/24 22:06 Urine Protein 2+ (Negative) H 03/28/24 22:06 Urine Glucose (UA) 4+ (Normal) H 03/28/24 22:06 Urine Ketones 1+ (Negative) H 03/28/24 22:06 Urine Blood 3+ (Negative) H 03/28/24 22:06 Urine Nitrate Negative (Negative) 03/28/24 22:06 Urine Bilirubin Neg (Negative) 03/28/24 22:06 Urine Urobilinogen Norm mg/dL (Negative) 03/28/24 22:06 Ur Leukocyte Esterase 2+ (Negative) H 03/28/24 22:06 Urine RBC 0-4 /hpf (0-2) H 03/28/24 22:06 Urine WBC Too numerous to cnt /hpf (0-5) H 03/28/24 22:06 Ur Squamous Epith Cells 0-4 /hpf (0-5) H 03/28/24 22:06 Amorphous Sediment Not Reportable 03/28/24 22:06 Urine Bacteria 1+ /hpf (NONE) H 03/28/24 22:06 Urine Yeast 2+ /hpf H 03/28/24 22:06 Serum Ketones Negative (Negative) 03/28/24 20:30 SARS-CoV-2 Ag (Rapid) negative (Negative) 03/28/24 20:46 All radiology interpretation(s) finalized by discharge Discharge Plan Discharge Condition: Stable Prescriptions: No Action (DME) pen needle, diabetic [BD Ultra-Fine Mini Pen Needle] 31 gauge x 3/16 needle See Rx Instructions .Route Qty: 100 3RF Rx Instructions: As directed metoprolol succinate 25 mg tablet extended release 24 hr 25 mg PO DAILY Qty: 90 3RF alendronate 70 mg tablet 70 mg PO .qweekly Qty: 52 0RF calcium carbonate-vitamin D3 [Calcium 600 with Vitamin D3] 600 mg-12.5 mcg (500 unit) capsule 2 cap PO DAILY Qty: 180 3RF famotidine [Pepcid AC] 20 mg tablet 20 mg PO DAILY Qty: 90 1RF pregabalin 200 mg capsule 200 mg PO BID Qty: 60 5RF (DME) pen needle, diabetic [BD Ultra-Fine Mini Pen Needle] 31 gauge x 3/16 needle See Rx Instructions .Route Qty: 1200 3RF Rx Instructions: As directed for checking blood sugars. hydromorphone 8 mg tablet 8 mg PO Q4H MDD 6 tabs per day PRN (Reason: Pain) 30 Days Qty: 180 0RF Hold Instructions: Resume on 06/16/20. donot take with tylenol with codiene amoxicillin 875 mg tablet 875 mg PO BID Qty: 14 3RF insulin lispro [Humalog KwikPen Insulin] 100 unit/mL insulin pen See Rx Instructions .ROUTE .COMPLEX Qty: 15 12RF Dose Instruction: INJECT 5 UNITS UNDER THE SKIN THREE TIMES DAILY PRIOR TO MEALS Rx Instructions: INJECT UNITS UNDER THE SKIN THREE TIMES DAILY PRIOR TO MEALS PER SLIDING SCALE. (DME) Dexcom G6 Sensor Device See Rx Instructions .Route Qty: 3 12RF Rx Instructions: As directed (DME) Dexcom G6 Transmitter Device See Rx Instructions .Route Qty: 1 3RF Rx Instructions: As directed [employer] SoloStar U-300 Insulin 300 unit/mL (1.5 mL) insulin pen 18 unit SUBCUT DAILY Qty: 4.5 3RF nitrofurantoin macrocrystal 50 mg capsule 50 mg PO DAILY Qty: 90 1RF Hold Instructions: Resume on 02/13/24. Rx Instructions: must administer with a meal/food aspirin 81 mg Tablet,Delayed Release (Dr/Ec) 81 mg PO DAILY Qty: 90 0RF atorvastatin 40 mg tablet 40 mg PO DAILY Qty: 90 0RF Referrals: Kayode Schilling DO [Primary Care Provider] - Coding Level of Care Code ED Clinical Document Improvement Educator for Mary [facility] Fleipe
[2024-03-28] MEDS: lactated ringers 1,000 ML 999 ML IV ×2 (20:44→22:04)
[2024-03-28] MEDS: ondansetron 2 mg/ML SDV 2 mL 4 MG IVP (20:44)
[2024-03-28 20:48] LABS: Basophils % 0.3 %; Eosinophils % 0.1 %; Hematocrit 44.7 % (36-47); Lymphocytes # 1.6 10^3/uL (0.8-4.8); Lymphocytes % 13.2 %; Mean Corpuscular Hemoglobin 28.5 pg (27-33); Mean Corpuscular Volume 89.2 fl (85-98); Mean Platelet Volume 12.2 fL (7.4-10.4); Monocytes # 0.7 10^3/uL (0.2-0.9); Monocytes % 6.1 %; Neutrophils # 9.44 10^3/uL (1.8-7.7); Neutrophils % 79.7 %; Nucleated Red Blood Cells % 0 %; Platelet Count 372 10^3/cmm (157-399); Red Blood Count 5.01 10^6/uL (3.85-5.65); Red Cell Distribution Width 13.2 % (12.1-15.1); White Blood Count 11.83 10^3/uL (3.29-11.43)
[2024-03-28 20:50] VITALS: BP 179/120; PULSE 116; RESP 15; O2SAT 94
[2024-03-28 20:58] LABS: Ketone (Acetest) Serum Negative (Negative)
[2024-03-28 21:02] LABS: Lactic Sepsis W/Reflex 2.2 mmol/L (0.5-2.2)
[2024-03-28 21:06] LABS: Alanine Aminotransferase 22 U/L (0-33); Albumin Level 4.1 g/dL (3.5-5.2); Alkaline Phosphatase 179 U/L (35-105); Anion Gap 22.3 (5-19); Aspartate Amino Transferase 14 U/L (0-32); Blood Urea Nitrogen 29 mg/dL (8-23); Calcium 9.7 mg/dL (8.5-10.5); Carbon Dioxide 24 mmol/L (22-29); Chloride 98 mmol/L (98-107); Globulin 4.8 g/dL (1.3-4.6); Glomerular Filtration Rate 55.8 mL/min (90-130); Glucose 256 mg/dL (65-115); Osmolality Calculated 305 mOsm/kg (285-295); Potassium 4.3 mmol/L (3.5-5.1); Sodium 140 mmol/L (136-145); Total Bilirubin 0.3 mg/dL (0.15-1.2); Total Protein 8.9 g/dL (6.6-8.7)
[2024-03-28 21:06] LABS: SARS Covid-2 Antigen negative (Negative)
[2024-03-28 21:32] VITALS: BP 164/116; PULSE 113; RESP 19; O2SAT 95
[2024-03-28 22:10] VITALS: BP 170/93; PULSE 116; RESP 19; O2SAT 93
[2024-03-28 22:10] LABS: Charge for UA Resulting for Rev
[2024-03-28 22:24] LABS: Protein Urine 2+ (Negative); Urine Appearance Turbid (CLEAR); Urine Color Yellow (Yellow); pH Urine 5 (5-7)
[2024-03-28 22:25] LABS: Bilirubin Urine Neg (Negative); Blood Urine 3+ (Negative); Glucose Urine UA 4+ (Normal); Ketones Urine 1+ (Negative); Leukocyte Esterase Urine 2+ (Negative); Nitrate Urine Negative (Negative); RBC Urine 0-4 /hpf (0-2); Urobilinogen Urine Norm (Negative); WBC Urine TOO NUMEROUS TO CNT /hpf (0-5)
[2024-03-28 22:26] LABS: Add Urine Culture? Yes; Bacteria Urine 1+ /hpf; Squamous Epithelial Cell Urine 0-4 /hpf (0-5)
[2024-03-28 22:29] LABS: Reflex Lactate Order REFLEX LACTIC ORDERD
--- NOTE | 2024-03-28 22:30 | CTR_ITS ---
PROCEDURE INFORMATION: Exam: CT Abdomen And Pelvis Without Contrast Exam date and time: 03/28/2024 11:05 PM Age: 64 years old Clinical indication: Abdominal tenderness and nausea; Abdominal pain; Generalized; Prior surgery; Surgery date: 6+ months; Surgery type: Hysterectomy; Additional info: Recurent UTI ensure no obstructive uropathy TECHNIQUE: Imaging protocol: Computed tomography of the abdomen and pelvis without contrast. Radiation optimization: All CT scans at this facility use at least one of these dose optimization techniques: automated exposure control; mA and/or kV adjustment per patient size (includes targeted exams where dose is matched to clinical indication); or iterative reconstruction. COMPARISON: CT kidney stone [id number] 02/01/2024 9:10 PM RADIATION DOSE METRICS: Total DLP (mGy-cm): 518.58 FINDINGS: Diaphragm: Small sliding hiatal hernia. Liver: Normal. No mass. Gallbladder and biliary ducts: Layering density in the gallbladder lumen. Pancreas: Fatty atrophy of the pancreas. No pancreatic ductal dilatation. Spleen: Normal. No splenomegaly. Adrenal glands: Normal. No mass. Kidneys and ureters: Similar punctate nonobstructing calculus in the left lower kidney. Stomach and bowel: Hyperdense material within the colon is likely from prior injection. Scattered colonic diverticula again seen. Appendix: No evidence of appendicitis. Intraperitoneal space: Unremarkable. No free air. No significant fluid collection. Vasculature: Extensive atherosclerotic calcifications of the abdominal aorta and its branch vessels. Lymph nodes: Unremarkable. No enlarged lymph nodes. Urinary bladder: Asymmetric mural thickening and trabeculation of the left lateral/posterior urinary bladder wall with increased conspicuity compared with prior, likely due in part to differences in distension. Reproductive: Status post hysterectomy. Bones/joints: Diffuse osseous demineralization. Similar compression deformity at T12. Soft tissues: Bilateral intramedullary femoral nail is partially imaged. CT/CT kidney stone [id number] IMPRESSION: 1. Asymmetric mural thickening and trabeculation along the left lateral/posterior aspect of the urinary bladder, more pronounced compared with prior, possibly due to differences in distension between the examinations. While findings could represent underlying cystitis, neoplasm cannot be excluded. Recommend correlation with direct visualization. CT urogram could also be considered for further evaluation if clinically warranted. 2. Layering density in the gallbladder could represent cholelithiasis and/or sludge. No CT evidence of acute cholecystitis. 3. Additional ancillary findings as above are similar to prior.
[2024-03-28] MEDS: cefTRIAXone 2,000 mg SDV 2000 MG IVP (22:41)
[2024-03-28] MEDS: metoclopramide 5 mg/mL SDV 2 mL 10 MG IVP (22:50)
[2024-03-28 22:58] LABS: Lactic Acid level (Lactate) 1.9 mmol/L (0.5-2.2)
--- NOTE | 2024-03-28 23:01 | P.HP_ITS ---
Providers/Chief Complaint 2 Primary Care Provider: Kayode Schilling DO Chief Complaint: Vomiting,Headace History of Present Illness 64-year-old lady with IDDM, minimally ambulatory with multiple extremity fractures, past history of hip fractures, used to walk with a walker but also has sustained a right arm fracture, arm in a sling, has been unable to use the walker, has been having to use the wheelchair. She has been feeling unwell since about Thursday with nausea, vomiting, chills, mild headache, with other family members having respiratory symptoms at home. She has had poor appetite and oral intake. In ER she is tachycardic 116, mild tachypnea 19 breaths/min, WBC 11.8, BUN 19, creatinine 1. UA with too numerous to count WBC, 0-4 RBC, 2+ LE. 1+ bacteria. 2+ yeast. 1+ urine ketones, negative serum ketones. Rapid COVID-19 negative. Review of Systems 2 Const: Reports: chills and malaise; Denies: fever(s) ENMT: Denies: throat pain or ear or mastoid pain Card: Denies: chest pain, edema or pre-syncope Resp: Denies: dyspnea, productive cough or change in phlegm color GI: Reports: nausea and vomiting; Denies: abdominal pain, diarrhea, constipation, hematochezia or melena : Denies: flank pain, urinary frequency or hematuria Musc: Reports: other (Restricted to wheelchair with prior hip issues and more recently arm fractu); Denies: back pain, joint swelling or joint redness Skin/Breast: Denies: rash or new lesions Neuro: Reports: headache(s) (Mild) Medications/Allergies Home Medications Medication Instructions Recorded Confirmed Last Taken Type pen needle, diabetic 31 gauge x #100 ea 11/04/22 02/02/24 Unknown Rx /16 (BD Ultra-Fine Mini Pen Needle) alendronate 70 mg tablet 70 mg PO .qweekly bone health #52 07/27/23 02/02/24 Unknown Rx tabs calcium carbonate 600 mg-vitamin 2 cap PO DAILY bone health #180 07/27/23 02/02/24 01/31/24 Rx D3 12.5 mcg (500 unit) capsule caps (Calcium 600 with Vitamin D3) famotidine 20 mg tablet (Pepcid AC) 20 mg PO DAILY Stomach #90 tabs 07/27/23 02/02/24 Unknown Rx metoprolol succinate 25 mg 25 mg PO DAILY for heart #90 tabs 07/27/23 02/02/24 01/31/24 Rx tablet,extended release 24 hr insulin lispro 100 unit/mL See Rx Instructions .Route 10/05/23 02/02/24 01/31/24 Rx subcutaneous pen (Humalog KwikPen .COMPLEX #15 mL (U-100) Insulin) pregabalin 200 mg capsule 200 mg PO BID #60 caps 10/09/23 02/09/24 02/01/24 Rx blood-glucose sensor (Dexcom G6 #3 ea 12/17/23 02/02/24 Unknown Rx Sensor device) blood-glucose transmitter (Dexcom #1 ea 12/17/23 02/02/24 Unknown Rx G6 Transmitter device) aspirin 81 mg tablet,delayed 81 mg PO DAILY #90 tabs 02/03/24 Unknown Rx release atorvastatin 40 mg tablet 40 mg PO DAILY #90 tabs 02/03/24 Unknown Rx hydromorphone 8 mg tablet 8 mg PO Q4H PRN Pain 1 month #180 02/09/24 03/08/24 Unknown Rx tabs pen needle, diabetic 31 gauge x #1,200 ea 02/09/24 02/09/24 Unknown Rx 3/16 (BD Ultra-Fine Mini Pen Needle) amoxicillin 875 mg tablet 875 mg PO BID group b strep #14 03/08/24 03/08/24 Unknown Rx tabs insulin glargine U-300 conc 300 18 unit (0.06 mL) SUBCUT DAILY 03/09/24 Unknown Rx unit/mL (1.5 mL) subcutaneous pen #4.5 mL (Toujeo SoloStar U-300 Insulin) nitrofurantoin macrocrystal 50 mg 50 mg PO DAILY #90 caps 03/09/24 Unknown Rx capsule Allergies Allergy/AdvReac Type Severity Reaction Status Date / Time metformin [From Glucophage] Allergy Severe unknown Verified 03/08/24 11:41 fentanyl Allergy Intermediate nausea Verified 03/08/24 11:41 methenamine Allergy Intermediate itching, Verified 03/08/24 11:41 n/v diphenhydramine Allergy ADR-Anxiety Verified 03/28/24 20:14 [From Benadryl] morphine Allergy ADR-Nausea Verified 03/08/24 11:41 cefdinir AdvReac GI symptoms Verified 03/08/24 11:41 PFSH Acute 2 PFSH: Medical History High anion gap metabolic acidosis Tachycardia Chronic UTI (urinary tract infection) Diabetes Intractable nausea and vomiting Social History Smoking and tobacco/nicotine status: never used tobacco/nicotine Alcohol intake: never Substance/Drug Use: never Vitals/I&O/Wt Last Vital Signs Temp 98.4 F 03/28/24 20:10 Pulse 116 H 03/28/24 22:10 Resp 19 H 03/28/24 22:10 BP 170/93 03/28/24 22:10 Pulse Ox 93 03/28/24 22:10 O2 Del Method Room Air 03/28/24 22:10 03/28/24 03/28/24 03/29/24 14:59 22:59 06:59 Intake Total 1000 / 1000 Balance 1000 / 1000 Weight last 48 hrs Weight 54.431 kg Physical Exam 2 Narrative: Accompanied by her sister. Const: COMMON NORMALS: patient oriented x3 and alert GENERAL APPEARANCE: c ooperative ORIENTATION/CONSCIOUSNESS: Yes awake OTHER: Nauseated with small amount of emesis. HENMT: COMMON NORMALS: oropharynx normal Neck/C-Spine: COMMON NORMALS: no JVD Resp: COMMON NORMALS: normal respiratory effort and clear to auscultation bilaterally AUSCULTATION: clear to auscultation bilaterally Cardio: COMMON NORMALS: no JVD, regular rhythm, S1 normal heart sound present, S2 normal heart sound present and No murmurs present (Cardio) RHYTHM: regular rhythm HEART SOUNDS: S1 normal heart sound present and S2 normal heart sound present GI: COMMON NORMALS: Normal to inspection, nondistended, normoactive bowel sounds present, Soft to palpation and non-tender PALPATION: Yes Soft to palpation Extremity: COMMON NORMALS: no joint enlargement and no pedal edema Neuro: COMMON NORMALS: patient oriented x3 and moves all extremities S ENSORIUM/ORIENTATION: Yes alert Skin: COMMON NORMALS: no rashes or lesions noted GENERAL SKIN EXAM: no rashes or lesions noted Data 03/28/24 20:30 03/28/24 20:30 Micro: Microbiology 03/28/24 20:40 Blood Culture - Preliminary Blood SPECIMEN COLLECTED 03/28/24 20:30 Blood Culture - Preliminary Blood SPECIMEN COLLECTED A&P Assessment and plan (1) Complicated UTI (urinary tract infection): History obtained mostly from patient's sister as well as ER staff as she is currently nauseated, not feeling well. Complicated UTI with SIRS, nausea vomiting, poor oral intake, possible pyelonephritis, reviewed vitals, CBC, CMP, UA, prior urine culture, more recently has had non-ESBL bacterial organism although previously did have a yeast infection as well. Follow-up urine culture. Reviewed ER note, discussed with ER provider. She has received ceftriaxone. Being assessed by renal protocol CT to assess for any obstructive uropathy. With poor oral intake, dehydration, BUN up to 29, creatinine starting to rise up to 1, risk of CARLOS. Reviewed prior echocardiogram, normal ejection fraction, mild MVR, continue gentle IV rehydration. Monitor for risk of fluid overload with IV fluids. Monitor vitals. With complicated UTI, SIRS, will continue with Zosyn for now, with diabetes, prior yeast infection in case of worsening symptoms/lack of response or significant yeast in urine consider antifungal coverage as well. Blood culture has been collected. Follow-up. She was recently in the hospital with a suspected UTI at that time as well urine culture grew group B strep, was on cefdinir. Blood cultures were negative last admission, currently again collected. Follow-up. With recurrent UTIs. Was supposed to be following up with urology. (2) Nausea and vomiting: Nausea and vomiting with complicated UTI with dehydration, progressing to kidney injury, BUN 29, creatinine 1. With tachycardia 116. Baseline creatinine 0.5- 0.8. Monitor urine output. So far without output. Gentle IV rehydration. Additionally with mild headache, and multiple family members with respiratory symptoms at home, given increase in viral infections recently does have negative rapid COVID but the test is not particularly reliable, will obtain respiratory viral panel. Antiemetic as needed. PPI. Repeat chemistry. Assess mag, Phos. N.p.o., sips chips for now. (3) Tachycardia: Secondary to dehydration with poor oral intake, nausea vomiting. Obtain EKG. Has not been able to tolerate her oral medications due to poor oral intake, nausea. Possible withdrawal from metoprolol. Plan High anion gap acidosis: 1+ ketones in urine but this is likely due to low oral intake, serum ketones negative, however, may be at risk of ketoacidosis. Monitor for any worsening in symptoms. Lactic acid reviewed, 2.2. Repeat chemistry. Will give IV hydration. Currently nonambulatory: Previously after hip fractures, but subsequently has been walking with a walker, but with sustaining also a right arm fracture, currently dependent on using a wheelchair. Is supposed to be following up with orthopedics per review of PCP note. IDDM: Continue insulin but with poor oral intake at risk of hypoglycemia, though with hyperglycemia, elevated anion gap acidosis at risk of ketoacidosis. Will continue with Lantus at reduced dose of 10 units. Monitor for risk of hypoglycemia with poor oral intake, nausea and vomiting. Monitor POC glucose. Low-dose sliding scale insulin. Requested to confirm home medications, please review once available. Attestations 2 Medical Necessity Statement*: Place in observation for assessment of management of complicated UTI in a lady with SIRS, dehydration, nausea vomiting, poor oral intake, immunocompromised with diabetes, with high anion gap acidosis, renal dysfunction. and High MDM includes amount and/or complexity of data reviewed/ordered [ previous or external records, resulted lab(s)/test(s), ordered lab(s)/test(s), independent historian and other healthcare professional discussion] and described risk of complication, morbidity or mortality of management as documented Diagnoses Complicated UTI (urinary tract infection) N39.0 Nausea and vomiting R11.2 Tachycardia R00.0
[2024-03-28 23:30] VITALS: BP 156/91; PULSE 117; RESP 19; O2SAT 94
[2024-03-29] VITALS (8 sets, daily range): BP systolic 127–173; BP diastolic 67–95; PULSE 72–118; RESP 17–18; TEMP 36.8–37.2; O2SAT 94–97; BMI 22.6
--- NOTE | 2024-03-29 00:06 | ECG_ITS ---
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 Measurements Intervals [place] Rate: 115 P: 40 NE: 131 QRS: 53 QRSD: 82 T: 21 QT: 285 QTc: 395 Interpretive Statements SINUS TACHYCARDIA NONSPECIFIC ST & T-WAVE ABNORMALITY ABNORMAL RHYTHM ECG Compared to ECG 02/02/2024 04:53:55 No significant changes Electronically Signed On 03-29-2024 23:36:38 CDT by Alison Mcguire M.D. [id number]
[2024-03-29] MEDS: pantoprazole 40 mg SDV IVP ×2 (00:52→23:11)
[2024-03-29] MEDS: piperacillin-tazobactam 3.375 GM in sodium chloride 0.9% (plus) 50 ML IV ×4 (00:59→23:11)
[2024-03-29] MEDS: ondansetron 2 mg/ML SDV 2 mL 4 MG IVP ×3 (01:09→19:33)
[2024-03-29] MEDS: lactated ringers 1,000 ML 100 ML IV ×3 (01:19→20:54)
--- NOTE | 2024-03-29 01:44 | PC.NURSE ---
Pt stated she was not comfortable taking 6 units of regular insulin per sliding scale for blood sugar of 234. Explained sliding scale system and dose that is used here in this facility, she stated that dose was way more than she would take at home and that her blood sugar drops lower at night. Notified Dr. Starkey of patient's statements and request to skip this dose and revisit at next accucheck time.
[2024-03-29 05:29] LABS: Basophils % 0.3 %; Eosinophils % 0.1 %; Hematocrit 39.5 % (36-47); Lymphocytes # 1.5 10^3/uL (0.8-4.8); Lymphocytes % 13.6 %; Mean Corpuscular HGB Conc 31.6 g/dL (30-55); Mean Corpuscular Hemoglobin 28.6 pg (27-33); Mean Corpuscular Volume 90.4 fl (85-98); Mean Platelet Volume 12.1 fL (7.4-10.4); Monocytes # 0.8 10^3/uL (0.2-0.9); Monocytes % 7.6 %; Neutrophils # 8.61 10^3/uL (1.8-7.7); Neutrophils % 78.1 %; Nucleated Red Blood Cells % 0 %; Platelet Count 311 10^3/cmm (157-399); Red Blood Count 4.37 10^6/uL (3.85-5.65); Red Cell Distribution Width 13.1 % (12.1-15.1); White Blood Count 11.02 10^3/uL (3.29-11.43)
[2024-03-29 05:54] LABS: Alanine Aminotransferase 17 U/L (0-33); Albumin Level 3.3 g/dL (3.5-5.2); Alkaline Phosphatase 152 U/L (35-105); Anion Gap 19.3 (5-19); Aspartate Amino Transferase 13 U/L (0-32); Blood Urea Nitrogen 23 mg/dL (8-23); Calcium 8.8 mg/dL (8.5-10.5); Carbon Dioxide 23 mmol/L (22-29); Chloride 102 mmol/L (98-107); Creatinine Clr Calc Pharmacy 60.1857; Globulin 4.3 g/dL (1.3-4.6); Glomerular Filtration Rate 72.2 mL/min (90-130); Glucose 221 mg/dL (65-115); Magnesium 1.7 mg/dL (1.7-2.3); Osmolality Calculated 300 mOsm/kg (285-295); Phosphorus 2.8 mg/dL (2.5-4.5); Potassium 4.3 mmol/L (3.5-5.1); Sodium 140 mmol/L (136-145); Total Bilirubin 0.3 mg/dL (0.15-1.2); Total Protein 7.6 g/dL (6.6-8.7)
[2024-03-29] MEDS: insulin lispro 100 unit/1 mL SUBCUT (06:39)
[2024-03-29] MEDS: enoxaparin 40 mg/0.4 mL Syringe SUBCUT (06:39)
[2024-03-29 06:43] LABS: Adenovirus Not Detected (NOT DETECT); Chlamydia Pneumoniae Not Detected (NOT DETECT); Coronavirus 229E,HKU1,NL63,OC4 Not Detected (NOT DETECT); Human Metapneumovirus Not Detected (NOT DETECT); Human Rhinovirus/Enterovirus Not Detected (NOT DETECT); Influenza A Not Detected (NOT DETECT); Influenza A H1 Not Detected (NOT DETECT); Influenza A H1-2009 Not Detected (NOT DETECT); Influenza A H3 Not Detected (NOT DETECT); Influenza B Not Detected (NOT DETECT); Mycoplasma Pneumoniae Not Detected (NOT DETECT); Parainfluenza Virus Type 1 Not Detected (NOT DETECT); Parainfluenza Virus Type 2 Not Detected (NOT DETECT); Parainfluenza Virus Type 3 Not Detected (NOT DETECT); Parainfluenza Virus Type 4 Not Detected (NOT DETECT); Respiratory Syncytial Virus A Not Detected (NOT DETECT); Respiratory Syncytial Virus B Not Detected (NOT DETECT); SARS-COV-2 Not Detected (NOT DETECT)
--- NOTE | 2024-03-29 09:00 | PC.CHAP ---
Pastoral Care Encounter/Spiritual Assessment Type of Contact [] Declined graining operator visit [] Patient/Family/Request visit [] Outpatient visit [] Follow-up visit [] Physician referral [] Code/Alert [x] Routine visit [] Staff referral [] Actively dying [] Patient sleeping [x] Family support [] [] Out of room [] Palliative care [] [] Receiving care in room [] Pre-surgical visit [] Trauma [] Long length of stay [] ICU visit [] Other: Relational/Emotional Strength [x] Patient feels connected with others/family/visitors/staff [] Distress [] Loneliness/isolation [] Abandonment Spirituality of Patient [x] Person of Monique [] Attends Judaism of their Monique [x] Believes in Prayer [] Reads Bible or Confucianism materials [] There are Spiritual issues to be addressed Spot Worker Interventions [x] Prayer [x] Active listening [] Non-anxious presence [x] Spiritual/emotional support [] Crisis/trauma care [] Spiritual counseling [] Bereavement support [] Provided bereavement packet [] Provided Bible/devotional materials [] Provided toy/stuffed animal, coloring book to patient or family member [] Provided Communion [] Anointing/[place] [] Salvation [x] Completed spiritual assessment [] Other: Impact on Illness or Injury [] Angry [] Fearful [] Anxious [] Often cries [] Exhaustion [] Unable to work [] Unable to attend yarsani [] Unable to walk/stand [] Unable to read [] Unable to drive [] Unable to eat/drink [] Unable to sleep [] Unable to be with family [] Patient intubated [] Other: Summary Time spent with patient 5 min
[2024-03-29 09:18] LABS: Iron 28 ug/dL (37-145); Percent Saturation 12.8 % (20-50); Total Iron Binding Capacity 218 mcg/dl; Unsaturated Iron Binding 190 ug/dL (112-347)
[2024-03-29 09:19] LABS: Estmated Average Glucose 200; Hemoglobin A1C 8.6 % (4.0-6.0)
[2024-03-29 09:34] LABS: Vitamin B12 859 pg/mL (232-1245)
--- NOTE | 2024-03-29 10:34 | P.PN_ITS ---
Subjective 2 Subjective: Admitted overnight. Seen with multiple family members at bedside. Patient states she is feeling better and less nauseous. Denies any abdominal pain. Did have mild headache earlier today morning but resolving now. Denies any photophobia. Has remained afebrile. Remains on room air. Vitals/I&O/Wt Last Vital Signs Temp 98.9 F 03/29/24 08:00 Pulse 115 H 03/29/24 08:00 Resp 17 03/29/24 08:00 BP 166/87 03/29/24 08:00 Pulse Ox 94 03/29/24 08:00 O2 Del Method Room Air 03/29/24 08:00 03/28/24 03/29/24 03/29/24 22:59 06:59 14:59 Intake Total 1000 / 1000 1050 / 0 Balance 1000 / 1000 1050 / 0 Weight last 48 hrs Weight 62.46 kg Weight 54.431 kg Weight 54.431 kg Physical Exam 2 Narrative: Accompanied by her multiple family members. Const: COMMON NORMALS: patient oriented x3 and alert GENERAL APPEARANCE: c ooperative ORIENTATION/CONSCIOUSNESS: Yes awake OTHER: Nauseated HENMT: COMMON NORMALS: oropharynx normal Neck/C-Spine: COMMON NORMALS: no JVD Resp: COMMON NORMALS: normal respiratory effort and clear to auscultation bilaterally AUSCULTATION: clear to auscultation bilaterally Cardio: COMMON NORMALS: no JVD, regular rhythm, S1 normal heart sound present, S2 normal heart sound present and No murmurs present (Cardio) RHYTHM: regular rhythm HEART SOUNDS: S1 normal heart sound present and S2 normal heart sound present GI: COMMON NORMALS: Normal to inspection, nondistended, normoactive bowel sounds present, Soft to palpation and non-tender PALPATION: Yes Soft to palpation Extremity: COMMON NORMALS: no joint enlargement and no pedal edema Neuro: COMMON NORMALS: patient oriented x3 and moves all extremities S ENSORIUM/ORIENTATION: Yes alert Skin: COMMON NORMALS: no rashes or lesions noted GENERAL SKIN EXAM: no rashes or lesions noted Quick SOFA Score: Respiratory Rate: 17 Blood Pressure: 166/87 [place] Coma Scale: 15 qSOFA Score: 0 If qSOFA score 2 or greater, continue: PaO2/FiO2 Ratio (mmHg): 385 Blood Pressure Mean: 113 Bilirubin (mg/dl): 0.3 Platelets (x10?/ml): 311 C reatinine (mg/dl): 0.8 SOFA Score: 1 Evaluation: Current stage of sepsis: sepsis Sepsis stage criteria used: [facility] Sep-1 and Sepsis-3 Crystalloid fluids: 30 mL/kg crystalloid fluids ordered and initiated within 3 hours Blood cultures ordered: Yes Possible source: genitourinary Focused Exam: Vital signs: Temp Pulse Resp BP Pulse Ox O2 Del Method 03/29/24 08:00 98.9 F 115 H 17 166/87 94 Room Air 03/29/24 03:43 98.5 F 117 H 17 171/95 97 03/29/24 01:14 Room Air 03/29/24 00:06 98.2 F 116 H 18 168/87 95 03/28/24 23:30 117 H 19 H 156/91 94 Room Air Respiratory exam: CTA bilaterally Cardiovascular exam: regular rhythm, S1 normal heart sound and S2 normal heart sound Skin exam: no rashes or lesions identified Date exam was performed: 03/29/24 Time exam was performed: 10:38 2 Sepsis Screen No Definite Risk 03/28/24 23:30 Respiratory Rate 17 breaths/min (12 - 18) 03/29/24 08:00 Blood Pressure 166/87 mmHg 03/29/24 08:00 [place] Coma Scale Score 15 03/29/24 01:14 Quick SOFA Score 0 03/28/24 23:30 SOFA Score: 2 [place] Coma Scale Score 15 03/29/24 01:14 Blood Pressure Mean 113 mmHg 03/29/24 08:00 Total Bilirubin 0.3 mg/dL (0.15-1.2) 03/29/24 05:16 Platelet Count 311 10^3/cmm (157-399) 03/29/24 05:16 Creatinine 0.8 mg/dL (0.5-0.9) 03/29/24 05:16 Data 03/29/24 05:16 03/29/24 05:16 Micro: Microbiology 03/28/24 20:40 Blood Culture - Preliminary Blood SPECIMEN COLLECTED 03/28/24 20:30 Blood Culture - Preliminary Blood SPECIMEN COLLECTED A&P Assessment and plan (1) Complicated UTI (urinary tract infection): With sepsis present on admission. SIRS: Tachycardic, Febrile, Leukocytosis Source: Complicated UTI End organ damage: CARLOS Lactic acid within normal limits Patient did receive full 30 mL/kg BW. Continue Ringer lactate at 50 cc for now. Monitor blood pressures. Keep mean artery pressure 65 mmHg. Follow-up blood culture, urine culture. Appreciate urine culture history in the past. Appreciate CT abdomen pelvis which is negative for obstructive nephropathy. Continue with IV Zosyn for now as per past culture history. De-escalate antibiotics as per culture results. (2) Nausea and vomiting: Most likely in setting of UTI. Appreciate CT abdomen pelvis. Does have cholelithiasis but no concerns for cholecystitis. LFTs within normal limits. Continue with IV hydration as above. Start on clear liquid diet and monitor. Protonix daily. Zofran and Reglan as needed. Monitor QTc. (3) Tachycardia: Most likely in setting of dehydration and sepsis. Restart home dose of metoprolol. Continue to monitor. Plan High anion gap acidosis: Resolved. Most likely in setting of dehydration and sepsis on admission. Currently nonambulatory: Multiple fractures in the past. Most recently right hip fracture followed by right arm fracture. History of spontaneous fractures as well. As per family member has history of osteoporosis. Recheck vitamin D levels. Will start on vitamin D supplementation accordingly. Calcium within normal limits. Check PTH. Previously after hip fractures, but subsequently has been walking with a walker, but with sustaining also a right arm fracture, currently dependent on using a wheelchair. Is supposed to be following up with orthopedics at [facility]. IDDM: A1c checked at 8.6. History of labile blood sugars as per family members. Restricted oral intake for now. Insulin sliding scale before meals and HS. Continue Lantus 10 units daily. Medical reconciliation awaited. Restart home dose of metoprolol, baby aspirin for now. Restart home dose of pregabalin. Attestations 2 Medical Necessity Statement*: Madelyn Spencer is being changed to inpatient status as stay will now exceed 2 midnights. Ongoing hospital care is necessary for management of sepsis in setting of complicated UTI, poor oral intake secondary to extensive nausea and vomiting Diagnoses Complicated UTI (urinary tract infection) N39.0 Nausea and vomiting R11.2 Tachycardia R00.0
[2024-03-29] MEDS: aspirin 81 mg EC Tablet PO (10:39)
[2024-03-29] MEDS: atorvastatin 40 mg Tablet PO (10:39)
[2024-03-29] MEDS: acetaminophen 325 mg Tablet 650 MG PO (10:39)
[2024-03-29] MEDS: metoprolol succinate ER (24 HR) 25 mg Tablet PO (10:39)
[2024-03-29] MEDS: metoclopramide 5 mg/mL SDV 2 mL IVP ×2 (10:40→17:00)
[2024-03-29 11:27] LABS: Calcium 9.8 mg/dL (8.5-10.5)
[2024-03-29 11:34] LABS: Parathyroid Hormone 18.6 pg/mL (15-65)
[2024-03-29 11:44] LABS: 25 Hydroxy Vitamin D 22 ng/mL (30-100)
[2024-03-29] MEDS: ergocalciferol (vitamin D2) 50,000 Unit Capsule 50000 UNIT PO (17:00)
[2024-03-29 20:24] LABS: Glucose Point of Care 146 mg/dL (70-110)
[2024-03-29] MEDS: trazodone 50 mg Tablet 25 MG PO (20:55)
[2024-03-30] VITALS (9 sets, daily range): BP systolic 138–175; BP diastolic 78–95; PULSE 88–125; RESP 16–18; TEMP 36.9–37.2; O2SAT 95–98
[2024-03-30] MEDS: temazepam 15 mg Capsule PO ×2 (02:59→22:43)
[2024-03-30] MEDS: ondansetron 2 mg/ML SDV 2 mL 4 MG IVP (03:04)
[2024-03-30] MEDS: enoxaparin 40 mg/0.4 mL Syringe SUBCUT (05:40)
[2024-03-30 05:54] LABS: Basophils % 0.3 %; Eosinophils % 0.2 %; Hematocrit 38.5 % (36-47); Lymphocytes # 1.5 10^3/uL (0.8-4.8); Lymphocytes % 16.1 %; Mean Corpuscular HGB Conc 31.9 g/dL (30-55); Mean Corpuscular Hemoglobin 28.3 pg (27-33); Mean Corpuscular Volume 88.7 fl (85-98); Mean Platelet Volume 12.5 fL (7.4-10.4); Monocytes # 0.7 10^3/uL (0.2-0.9); Monocytes % 7.3 %; Neutrophils # 6.85 10^3/uL (1.8-7.7); Neutrophils % 75.8 %; Nucleated Red Blood Cells % 0 %; Platelet Count 300 10^3/cmm (157-399); Red Blood Count 4.34 10^6/uL (3.85-5.65); Red Cell Distribution Width 12.7 % (12.1-15.1); White Blood Count 9.05 10^3/uL (3.29-11.43)
[2024-03-30 06:21] LABS: Glucose Point of Care 127 mg/dL (70-110)
[2024-03-30 06:25] LABS: Alanine Aminotransferase 12 U/L (0-33); Albumin Level 3.2 g/dL (3.5-5.2); Alkaline Phosphatase 133 U/L (35-105); Anion Gap 19.6 (5-19); Aspartate Amino Transferase 11 U/L (0-32); Blood Urea Nitrogen 13 mg/dL (8-23); Calcium 8.4 mg/dL (8.5-10.5); Carbon Dioxide 22 mmol/L (22-29); Chloride 102 mmol/L (98-107); Creatinine Clr Calc Pharmacy 60.1857; Globulin 3.9 g/dL (1.3-4.6); Glomerular Filtration Rate 72.2 mL/min (90-130); Glucose 133 mg/dL (65-115); Magnesium 1.7 mg/dL (1.7-2.3); Osmolality Calculated 292 mOsm/kg (285-295); Potassium 3.6 mmol/L (3.5-5.1); Sodium 140 mmol/L (136-145); Total Bilirubin 0.5 mg/dL (0.15-1.2); Total Protein 7.1 g/dL (6.6-8.7)
[2024-03-30 06:43] LABS: Folate Level 13.3 ng/mL (4.8-37.3)
[2024-03-30] MEDS: metoclopramide 5 mg/mL SDV 2 mL IVP (08:28)
[2024-03-30] MEDS: piperacillin-tazobactam 3.375 GM in sodium chloride 0.9% (plus) 50 ML IV ×2 (08:30→16:42)
[2024-03-30] MEDS: amlodipine 5 mg Tablet PO (08:37)
[2024-03-30] MEDS: fluconazole 100 mg Tablet 200 MG PO (08:37)
[2024-03-30] MEDS: atorvastatin 40 mg Tablet PO (08:37)
[2024-03-30] MEDS: aspirin 81 mg EC Tablet PO (08:37)
[2024-03-30] MEDS: acetaminophen 325 mg Tablet 650 MG PO (08:37)
[2024-03-30] MEDS: metoprolol succinate ER (24 HR) 25 mg Tablet PO (08:37)
[2024-03-30] MEDS: cholecalciferol (vitamin D3) 5,000 unit Tablet 5000 UNIT PO (08:37)
--- NOTE | 2024-03-30 09:11 | PC.CHAP ---
Pastoral Care Encounter/Spiritual Assessment Type of Contact [] Declined siding applicator visit [] Patient/Family/Request visit [] Outpatient visit [] Follow-up visit [] Physician referral [] Code/Alert [] Routine visit [] Staff referral [] Actively dying [] Patient sleeping [] Family support [] [x] Out of room [] Palliative care [] [] Receiving care in room [] Pre-surgical visit [] Trauma [] Long length of stay [] ICU visit [] Other: Relational/Emotional Strength [] Patient feels connected with others/family/visitors/staff [] Distress [] Loneliness/isolation [] Abandonment Spirituality of Patient [] Person of Monique [] Attends Sabianist of their Monique [] Believes in Prayer [] Reads Bible or Quaker materials [] There are Spiritual issues to be addressed Orchestra Musician Interventions [] Prayer [] Active listening [] Non-anxious presence [] Spiritual/emotional support [] Crisis/trauma care [] Spiritual counseling [] Bereavement support [] Provided bereavement packet [] Provided Bible/devotional materials [] Provided toy/stuffed animal, coloring book to patient or family member [] Provided Communion [] Anointing/[place] [] Salvation [] Completed spiritual assessment [] Other: Impact on Illness or Injury [] Angry [] Fearful [] Anxious [] Often cries [] Exhaustion [] Unable to work [] Unable to attend religious [] Unable to walk/stand [] Unable to read [] Unable to drive [] Unable to eat/drink [] Unable to sleep [] Unable to be with family [] Patient intubated [] Other: Summary Time spent with patient
--- NOTE | 2024-03-30 10:43 | P.PN_ITS ---
Subjective 2 Subjective: No acute events overnight. Seen with at bedside. Patient is awake alert but continues to be tired appearing. States she did have some nausea today morning but has not vomited. Have tried clear liquid diet but limited as per the . Patient states she does not feel hungry. Denies any abdominal pain. Has remained afebrile in last 24 hours. Vitals/I&O/Wt Last Vital Signs Temp 98.9 F 03/30/24 08:00 Pulse 125 H 03/30/24 08:00 Resp 17 03/30/24 08:00 BP 159/95 03/30/24 08:00 Pulse Ox 98 03/30/24 08:00 O2 Del Method Room Air 03/30/24 08:00 03/29/24 03/30/24 03/30/24 22:59 06:59 14:59 Intake Total 1650 / 2875 930 / 3805 360 / 360 Output Total 450 / 750 Balance 1200 / 2125 930 / 3055 360 / 360 Weight last 48 hrs Weight 62.142 kg Weight 62.46 kg Weight 54.431 kg Weight 54.431 kg Physical Exam 2 Narrative: Accompanied by her multiple family members. Const: COMMON NORMALS: patient oriented x3 and alert GENERAL APPEARANCE: c ooperative ORIENTATION/CONSCIOUSNESS: Yes awake OTHER: Nauseated HENMT: COMMON NORMALS: oropharynx normal Neck/C-Spine: COMMON NORMALS: no JVD Resp: COMMON NORMALS: normal respiratory effort and clear to auscultation bilaterally AUSCULTATION: clear to auscultation bilaterally Cardio: COMMON NORMALS: no JVD, regular rhythm, S1 normal heart sound present, S2 normal heart sound present and No murmurs present (Cardio) RHYTHM: regular rhythm HEART SOUNDS: S1 normal heart sound present and S2 normal heart sound present GI: COMMON NORMALS: Normal to inspection, nondistended, normoactive bowel sounds present, Soft to palpation and non-tender PALPATION: Yes Soft to palpation Extremity: COMMON NORMALS: no joint enlargement and no pedal edema Neuro: COMMON NORMALS: patient oriented x3 and moves all extremities S ENSORIUM/ORIENTATION: Yes alert Skin: COMMON NORMALS: no rashes or lesions noted GENERAL SKIN EXAM: no rashes or lesions noted Data 03/30/24 05:25 03/30/24 05:25 Micro: Microbiology 03/28/24 22:06 Urine Culture - Preliminary Urine,Clean Catch Yeast species 03/28/24 20:40 Blood Culture - Preliminary Blood NEGATIVE TO DATE 03/28/24 20:30 Blood Culture - Preliminary Blood NEGATIVE TO DATE A&P Assessment and plan (1) Complicated UTI (urinary tract infection): With sepsis present on admission. SIRS: Tachycardic, Febrile, Leukocytosis Source: Complicated UTI End organ damage: CARLOS Lactic acid within normal limits Patient did receive full 30 mL/kg BW. Continue normal saline at 75cc for now. Monitor blood pressures. Keep mean artery pressure 65 mmHg. Follow-up blood culture. Urine culture growing yeast. Continue with Zosyn as per past culture history. Repeat urinalysis. Add fluconazole 200 mg oral daily. De-escalate antibiotics as per culture results. (2) Nausea and vomiting: Most likely in setting of UTI. Appreciate CT abdomen pelvis. Does have cholelithiasis but no concerns for cholecystitis. No ductal dilatation. LFTs within normal limits. Continue with IV hydration as above. Encourage patient to try and increase oral intake. Advance to full liquid diet. Protonix daily. Add Carafate before meals and at bedtime. Zofran and Reglan as needed. Monitor QTc. (3) Tachycardia: Most likely in setting of dehydration and sepsis. Changed from metoprolol succinate to metoprolol tartrate 25 mg twice daily. Will uptitrate as blood pressure allows. Continue to monitor. Plan High anion gap acidosis: Resolved. Most likely in setting of dehydration and sepsis on admission. High blood pressure: No past history of hypertension. Goal blood pressure less than 140/90 mmHg. Add amlodipine 5 mg oral daily. Uptitrate as for goal blood pressure. Currently nonambulatory: Multiple fractures in the past. Most recently right hip fracture followed by right arm fracture. History of spontaneous fractures as well. As per family member has history of osteoporosis. Vitamin D level significantly low. Vitamin D2 50,000 unit 1 time given. Continue with vitamin D3 5000 unit daily. Check PTH. Previously after hip fractures, but subsequently has been walking with a walker, but with sustaining also a right arm fracture, currently dependent on using a wheelchair. Is supposed to be following up with orthopedics at [facility]. IDDM: A1c checked at 8.6. History of labile blood sugars as per family members. Restricted oral intake for now. Insulin sliding scale before meals and HS. Continue Lantus 10 units daily. Restart home dose of metoprolol, baby aspirin, pregabalin. Full code Full liquid diet Lovenox for DVT prophylaxis Protonix for PUD prophylaxis. Out of bed to chair. Discharge plan: Plan to discharge home with caregiver once medically stable. Patient will need to follow-up with orthopedic team at [facility] for further management of fracture of the right elbow around the prosthesis Attestations 2 Medical Necessity Statement*: Requires further hospitalization for management of nausea and vomiting in setting of complicated UTI Diagnoses Complicated UTI (urinary tract infection) N39.0 Nausea and vomiting R11.2 Tachycardia R00.0
[2024-03-30] MEDS: sucralfate 1 gm/10 mL Oral Liq UDC PO ×3 (12:40→20:35)
[2024-03-30] MEDS: sodium chloride 0.9% 1,000 ML 75 ML IV (12:41)
[2024-03-30 15:20] LABS: Charge for UA Resulting for Rev
[2024-03-30 15:44] LABS: Bilirubin Urine Negative (Negative); Blood Urine 2+ (Negative); Glucose Urine UA Negative (Normal); Ketones Urine 1+ (Negative); Leukocyte Esterase Urine 3+ (Negative); Nitrate Urine Negative (Negative); Protein Urine 2+ (Negative); Specific Gravity, Urine 1.014 (1.005-1.030); Urine Appearance Turbid (CLEAR); Urine Color Yellow (Yellow); pH Urine 6.5 (5-7)
[2024-03-30 16:26] LABS: Glucose Point of Care 129 mg/dL (70-110)
[2024-03-30 16:52] LABS: Glucose Point of Care 128 mg/dL (70-110)
[2024-03-30 17:33] LABS: UA Manual Slide Review YES; UA Slide Review UA Slide Review Perf; WBC Urine TOO NUMEROUS TO CNT /hpf (0-5)
[2024-03-30 17:34] LABS: Add Urine Culture? Yes
[2024-03-30] MEDS: metoprolol tartrate 25 mg Tablet PO (20:35)
[2024-03-31] VITALS: BP 172/93; PULSE 81; RESP 16; TEMP 36.4; O2SAT 95
[2024-03-31] MEDS: sodium chloride 0.9% 1,000 ML 75 ML IV (00:30)
[2024-03-31] MEDS: piperacillin-tazobactam 3.375 GM in sodium chloride 0.9% (plus) 50 ML IV ×2 (00:30→08:20)
[2024-03-31] MEDS: pantoprazole 40 mg SDV IVP (00:31)
[2024-03-31 04:00] VITALS: BP 138/76; PULSE 80; RESP 16; TEMP 37; O2SAT 95
[2024-03-31 05:21] LABS: Basophils # 0.1 10^3/uL (0.0-0.1); Basophils % 0.9 %; Eosinophils # 0.1 10^3/uL (0.0-0.8); Eosinophils % 0.7 %; Hematocrit 42.1 % (36-47); Lymphocytes # 1.7 10^3/uL (0.8-4.8); Lymphocytes % 20.2 %; Mean Corpuscular HGB Conc 31.8 g/dL (30-55); Mean Corpuscular Hemoglobin 28.4 pg (27-33); Mean Corpuscular Volume 89.2 fl (85-98); Monocytes # 0.8 10^3/uL (0.2-0.9); Monocytes % 9.2 %; Neutrophils # 5.89 10^3/uL (1.8-7.7); Neutrophils % 68.7 %; Nucleated Red Blood Cells % 0 %; Platelet Count 332 10^3/cmm (157-399); Red Blood Count 4.72 10^6/uL (3.85-5.65); Red Cell Distribution Width 12.5 % (12.1-15.1); White Blood Count 8.58 10^3/uL (3.29-11.43)
[2024-03-31 05:41] LABS: Alanine Aminotransferase 12 U/L (0-33); Albumin Level 3.5 g/dL (3.5-5.2); Alkaline Phosphatase 135 U/L (35-105); Anion Gap 18.3 (5-19); Aspartate Amino Transferase 11 U/L (0-32); Blood Urea Nitrogen 12 mg/dL (8-23); Calcium 8.5 mg/dL (8.5-10.5); Carbon Dioxide 22 mmol/L (22-29); Chloride 103 mmol/L (98-107); Creatinine Clr Calc Pharmacy 68.6206; Globulin 4.1 g/dL (1.3-4.6); Glomerular Filtration Rate 84.2 mL/min (90-130); Glucose 114 mg/dL (65-115); Osmolality Calculated 291 mOsm/kg (285-295); Potassium 3.3 mmol/L (3.5-5.1); Sodium 140 mmol/L (136-145); Total Bilirubin 0.5 mg/dL (0.15-1.2); Total Protein 7.6 g/dL (6.6-8.7)
[2024-03-31 05:42] LABS: Magnesium 1.8 mg/dL (1.7-2.3)
[2024-03-31 06:00] VITALS: PULSE 110
[2024-03-31 06:19] LABS: Glucose Point of Care 121 mg/dL (70-110)
[2024-03-31] MEDS: sucralfate 1 gm/10 mL Oral Liq UDC PO ×2 (06:30→11:05)
[2024-03-31] MEDS: enoxaparin 40 mg/0.4 mL Syringe SUBCUT (06:30)
[2024-03-31] MEDS: amlodipine 5 mg Tablet PO ×2 (06:30→08:26)
[2024-03-31 08:00] VITALS: BP 163/93; PULSE 110; RESP 17; TEMP 37.3; O2SAT 96
[2024-03-31] MEDS: atorvastatin 40 mg Tablet PO (08:25)
[2024-03-31] MEDS: aspirin 81 mg EC Tablet PO (08:26)
[2024-03-31] MEDS: fluconazole 100 mg Tablet 200 MG PO (08:26)
[2024-03-31] MEDS: cholecalciferol (vitamin D3) 5,000 unit Tablet 5000 UNIT PO (08:26)
[2024-03-31] MEDS: insulin glargine 100 units/1 mL 10 UNIT SUBCUT (08:34)
[2024-03-31] MEDS: metoprolol tartrate 25 mg Tablet PO (08:36)
--- NOTE | 2024-03-31 10:00 | P.DS_ITS ---
Discharge Providers Date of Admission: 03/29/24 10:35 Date of Discharge: March 31, 2024 Attending Provider at Admission: Ankush Starkey Attending Provider at Discharge: Daryl Caldera MD Primary Care Provider: Kayode Schilling DO Diagnoses at Discharge Discharge Diagnosis (1) Complicated UTI (urinary tract infection): Status: Acute (2) Nausea and vomiting: Status: Acute (3) Tachycardia: Status: Acute Reason for Visit Reason for Visit: Vomiting,Headace Brief History: History as per HPI: 64-year-old lady with IDDM, minimally am bulatory with multiple extremity fractu res, past history of hip fractures, used to walk with a walker but also has sustained a right arm fracture, arm in a sling, has been unable to use the walker, has been having to use the wheelchair. She has been feeling unwell since about Thursday with nausea, vomiting, chills, mild headache, with other family members having respiratory symptoms at home. She has had poor appetite and oral intake. In ER she is tachycardic 116, mild tachypnea 19 breaths/min, WBC 11.8, BUN 19, creatinine 1. UA with too numerous to count WBC, 0-4 RBC, 2+ LE. 1+ bacteria. 2+ yeast. 1+ urine ketones, negative serum ketones. Rapid COVID-19 negative. Hospital Course Hospital Course Patient was admitted to the hospital further evaluation and management of nausea and vomiting in setting of UTI. On admission CT abdomen pelvis was done which was concerning for focal thickening of urinary bladder, cholelithiasis without concerning for cholecystitis. She was started on broad-spectrum antibiotics. Her blood culture during hospitalization remain negative urine culture came back positive for yeast for which she was started on Diflucan. During hospitalization she was found to have high blood pressure for which her antihypertensives were adjusted and losartan 25 mg oral added. Gradually her diet was advanced and she has been able to tolerate full liquid diet for last 24 hours. Her UA was repeated and is concerning for diabetic nephropathy with higher protein and glucose loss. Need for better blood pressure and diabetes control discussed in detail with the patient and she verbalized understanding. She was found to have vitamin D deficiency for which she has not started on oral vitamin D3 supplementation. She has been discharged on oral Diflucan for 7 more days and Levaquin for 3 more days. She will also continue take Protonix for 4 weeks and Carafate premeals for 4 weeks. Safe discharge plan were discussed in detail with the patient and her and they verbalized understanding. Physical Exam Narrative: Accompanied by her . Const: COMMON NORMALS: patient oriented x3 and alert GENERAL APPEARANCE: cooperative ORIENTATION/CONSCIOUSNESS: Yes awake HENMT: COMMON NORMALS: oropharynx normal Neck/C-Spine: COMMON NORMALS: no JVD Resp: COMMON NORMALS: normal respiratory effort and clear to auscultation bilaterally AUSCULTATION: clear to auscultation bilaterally Cardio: COMMON NORMALS: no JVD, regular rhythm, S1 normal heart sound present, S2 normal heart sound present and No murmurs present (Cardio) RHYTHM: regular rhythm HEART SOUNDS: S1 normal heart sound present and S2 normal heart sound present GI: COMMON NORMALS: Normal to inspection, nondistended, normoactive bowel sounds present, Soft to palpation and non-tender PALPATION: Yes Soft to palpation Extremity: COMMON NORMALS: no joint enlargement and no pedal edema Neuro: COMMON NORMALS: patient oriented x3 and moves all extremities SENSORIUM/ORIENTATION: Yes alert Skin: COMMON NORMALS: no rashes or lesions noted GENERAL SKIN EXAM: no rashes or lesions noted Discharge Data Studies Completed and Pending Completed Studies During Hospitalization Category Date Time Status CT abdomen renal stone [CT kidney stone [id number]] Stat Cat Scan 03/28/24 22:30 Completed XR chest 1V portable [id number] Stat Exams 03/28/24 20:28 Completed Pending at discharge Category Date Time Status Blood Culture Stat Lab 03/28/24 20:40 Results MAG [Magnesium] AM LABS Lab 04/01/24 04:00 Ordered PTH Related Peptide (Protein) Routine Lab 03/29/24 16:10 Received Urine Culture Routine Lab 03/30/24 14:50 Received Urine Culture Stat Lab 03/28/24 22:06 Results Vitamin D 1,25 Dihydroxy Routine Lab 03/29/24 10:43 Received Radiology Impressions Chest X-Ray 03/28/24 20:28 IMPRESSION: No acute cardiopulmonary findings. Abdomen/Pelvis CT 03/28/24 22:30 IMPRESSION: 1. Asymmetric mural thickening and trabeculation along the left lateral/posterior aspect of the urinary bladder, more pronounced compared with prior, possibly due to differences in distension between the examinations. While findings could represent underlying cystitis, neoplasm cannot be excluded. Recommend correlation with direct visualization. CT urogram could also be considered for further evaluation if clinically warranted. 2. Layering density in the gallbladder could represent cholelithiasis and/or sludge. No CT evidence of acute cholecystitis. 3. Additional ancillary findings as above are similar to prior. Laboratory Results WBC 8.58 10^3/uL (3.29-11.43) 03/31/24 05:01 RBC 4.72 10^6/uL (3.85-5.65) 03/31/24 05:01 Hgb 13.40 g/dL (11.27-16.99) 03/31/24 05:01 Hct 42.1 % (36-47) 03/31/24 05:01 MCV 89.2 fl (85-98) 03/31/24 05:01 MCH 28.4 pg (27-33) 03/31/24 05:01 MCHC 31.8 g/dL (30-55) 03/31/24 05:01 RDW 12.5 % (12.1-15.1) 03/31/24 05:01 Plt Count 332 10^3/cmm (157-399) 03/31/24 05:01 MPV 12.0 fL (7.4-10.4) H 03/31/24 05:01 Neut % (Auto) 68.7 % 03/31/24 05:01 Lymph % (Auto) 20.2 % 03/31/24 05:01 [place] % (Auto) 9.2 % 03/31/24 05:01 Eos % (Auto) 0.7 % 03/31/24 05:01 Baso % (Auto) 0.9 % 03/31/24 05:01 Neut # (Auto) 5.89 10^3/uL (1.8-7.7) 03/31/24 05:01 Lymph # (Auto) 1.7 10^3/uL (0.8-4.8) 03/31/24 05:01 [place] # (Auto) 0.8 10^3/uL (0.2-0.9) 03/31/24 05:01 Eos # (Auto) 0.1 10^3/uL (0.0-0.8) 03/31/24 05:01 Baso # (Auto) 0.1 10^3/uL (0.0-0.1) 03/31/24 05:01 Nucleated RBC % (auto) 0 % 03/31/24 05:01 Nucleated RBCs # 0.0 /100WBC 03/31/24 05:01 Sodium 140 mmol/L (136-145) 03/31/24 05:01 Potassium 3.3 mmol/L (3.5-5.1) L 03/31/24 05:01 Chloride 103 mmol/L (98-107) 03/31/24 05:01 Carbon Dioxide 22 mmol/L (22-29) 03/31/24 05:01 Anion Gap 18.3 (5-19) 03/31/24 05:01 BUN 12 mg/dL (8-23) 03/31/24 05:01 Creatinine 0.7 mg/dL (0.5-0.9) 03/31/24 05:01 GFR Calculation 84.2 mL/min (90-130) L 03/31/24 05:01 Glucose 114 mg/dL (65-115) 03/31/24 05:01 POC Glucose 121 mg/dL (70-110) H 03/31/24 06:04 Estimat Average Glucose 200 03/29/24 05:16 Hemoglobin A1c 8.6 % (4.0-6.0) H 03/29/24 05:16 Calculated Osmolality 291 mOsm/kg (285-295) 03/31/24 05:01 Lactic Acid 2.2 mmol/L (0.5-2.2) 03/28/24 20:30 Lactic Acid (Sepsis) 1.9 mmol/L (0.5-2.2) 03/28/24 22:39 Calcium 8.5 mg/dL (8.5-10.5) 03/31/24 05:01 Phosphorus 2.8 mg/dL (2.5-4.5) 03/29/24 05:16 Magnesium 1.8 mg/dL (1.7-2.3) 03/31/24 05:01 Iron 28 ug/dL (37-145) L 03/29/24 05:16 TIBC 218 mcg/dl 03/29/24 05:16 % Saturation 12.8 % (20-50) L 03/29/24 05:16 Unsat Iron Binding 190 ug/dL (112-347) 03/29/24 05:16 Total Bilirubin 0.5 mg/dL (0.15-1.2) 03/31/24 05:01 AST 11 U/L (0-32) 03/31/24 05:01 ALT 12 U/L (0-33) 03/31/24 05:01 Alkaline Phosphatase 135 U/L (35-105) H 03/31/24 05:01 Total Protein 7.6 g/dL (6.6-8.7) 03/31/24 05:01 Albumin 3.5 g/dL (3.5-5.2) 03/31/24 05:01 Globulin 4.1 g/dL (1.3-4.6) 03/31/24 05:01 Vitamin B12 859 pg/mL (232-1245) 03/29/24 05:16 25-OH Vitamin D Total 22 ng/mL (30-100) L 03/29/24 05:16 Folate 13.3 ng/mL (4.8-37.3) 03/30/24 05:25 PTH Intact 18.6 pg/mL (15-65) 03/28/24 20:30 Calcium (PTH Intact) 9.8 mg/dL (8.5-10.5) 03/28/24 20:30 Urine Color Yellow (Yellow) 03/30/24 14:50 Urine Appearance Turbid (CLEAR) A 03/30/24 14:50 Urine pH 6.5 (5-7) 03/30/24 14:50 Ur Specific [place] 1.014 (1.005-1.030) 03/30/24 14:50 Urine Protein 2+ (Negative) A 03/30/24 14:50 Urine Glucose (UA) Negative (Normal) 03/30/24 14:50 Urine Ketones 1+ (Negative) H 03/30/24 14:50 Urine Blood 2+ (Negative) A 03/30/24 14:50 Urine Nitrate Negative (Negative) 03/30/24 14:50 Urine Bilirubin Negative (Negative) 03/30/24 14:50 Urine Urobilinogen 1.0 mg/dL (Negative) 03/30/24 14:50 Ur Leukocyte Esterase 3+ (Negative) A 03/30/24 14:50 Urine RBC 10-15 /hpf (0-2) H 03/30/24 14:50 Urine WBC Too numerous to cnt /hpf (0-5) H 03/30/24 14:50 Ur Squamous Epith Cells 5-10 /hpf (0-5) H 03/30/24 14:50 Amorphous Sediment Not Reportable 03/30/24 14:50 Urine Bacteria None /hpf (NONE) 03/30/24 14:50 Urine Mucus None /hpf 03/30/24 14:50 Urine Yeast 2+ /hpf H 03/28/24 22:06 Serum Ketones Negative (Negative) 03/28/24 20:30 Adenovirus (PCR) Not detected (NOT DETECT) 03/29/24 04:16 C. pneumoniae DNA (PCR) Not detected (NOT DETECT) 03/29/24 04:16 Coronavirus 229E (PCR) Not detected (NOT DETECT) 03/29/24 04:16 Human Metapneumovir PCR Not detected (NOT DETECT) 03/29/24 04:16 Influenza A (H1) PCR Not detected (NOT DETECT) 03/29/24 04:16 Influ A (H1/09) PCR Not detected (NOT DETECT) 03/29/24 04:16 Influenza A (H3) PCR Not detected (NOT DETECT) 03/29/24 04:16 Influenza Type A (PCR) Not detected (NOT DETECT) 03/29/24 04:16 Influenza Type B (PCR) Not detected (NOT DETECT) 03/29/24 04:16 M. pneumoniae (PCR) Not detected (NOT DETECT) 03/29/24 04:16 Parainfluenza 1 (PCR) Not detected (NOT DETECT) 03/29/24 04:16 Parainfluenza 2 (PCR) Not detected (NOT DETECT) 03/29/24 04:16 Parainfluenza 3 (PCR) Not detected (NOT DETECT) 03/29/24 04:16 Parainfluenza 4 (PCR) Not detected (NOT DETECT) 03/29/24 04:16 RSV Type A (PCR) Not detected (NOT DETECT) 03/29/24 04:16 RSV Type B (PCR) Not detected (NOT DETECT) 03/29/24 04:16 Entero/Rhino (PCR) Not detected (NOT DETECT) 03/29/24 04:16 SARS-CoV-2 (PCR) Not detected (NOT DETECT) 03/29/24 04:16 SARS-CoV-2 Ag (Rapid) negative (Negative) 03/28/24 20:46 Vitals Last Vital Signs Temp 99.1 F 03/31/24 08:00 Pulse 110 H 03/31/24 08:00 Resp 17 03/31/24 08:00 BP 163/93 03/31/24 08:00 Pulse Ox 96 03/31/24 08:00 O2 Del Method Room Air 03/31/24 04:00 Discharge Plan Discharge Patient Disposition: Home Condition: Stable Prescriptions: New fluconazole 100 mg Tablet 200 mg PO DAILY 7 Days Qty: 14 0RF sucralfate 100 mg/mL Suspension 1 g PO AC&BEDTIME Qty: 1000 0RF metoprolol tartrate 25 mg Tablet 25 mg PO BID@0900,2100 Qty: 60 0RF cholecalciferol (vitamin D3) 125 mcg (5,000 unit) Tablet 5,000 unit PO DAILY Qty: 30 0RF losartan 25 mg tablet 25 mg PO DAILY Qty: 30 0RF Lyrica 100 mg capsule 100 mg PO BID Qty: 60 0RF Protonix 40 mg tablet,delayed release (DR/EC) 40 mg PO DAILY 28 Days Qty: 30 0RF levofloxacin 750 mg tablet 750 mg PO Q24H 3 Days Qty: 3 0RF Continued (DME) pen needle, diabetic [BD Ultra-Fine Mini Pen Needle] 31 gauge x 3/16 needle See Rx Instructions .Route Qty: 100 3RF Rx Instructions: As directed calcium carbonate-vitamin D3 [Calcium 600 with Vitamin D3] 600 mg-12.5 mcg (500 unit) capsule 2 cap PO DAILY Qty: 180 3RF (DME) pen needle, diabetic [BD Ultra-Fine Mini Pen Needle] 31 gauge x 3/16 needle See Rx Instructions .Route Qty: 1200 3RF Rx Instructions: As directed for checking blood sugars. insulin lispro [Humalog KwikPen Insulin] 100 unit/mL insulin pen See Rx Instructions .ROUTE .COMPLEX Qty: 15 12RF Dose Instruction: INJECT 5 UNITS UNDER THE SKIN THREE TIMES DAILY PRIOR TO MEALS Rx Instructions: INJECT UNDER THE SKIN THREE TIMES DAILY PRIOR TO MEALS PER SLIDING SCALE. (DME) Dexcom G6 Sensor Device See Rx Instructions .Route Qty: 3 12RF Rx Instructions: As directed (DME) Dexcom G6 Transmitter Device See Rx Instructions .Route Qty: 1 3RF Rx Instructions: As directed nitrofurantoin macrocrystal 50 mg capsule 50 mg PO DAILY Qty: 90 1RF Hold Instructions: Resume on 02/13/24. Rx Instructions: must administer with a meal/food aspirin 81 mg Tablet,Delayed Release (Dr/Ec) 81 mg PO DAILY Qty: 90 0RF Changed Toujeo SoloStar U-300 Insulin 300 unit/mL (1.5 mL) insulin pen 10 unit SUBCUT DAILY Qty: 4.5 3RF Discontinued metoprolol succinate 25 mg tablet extended release 24 hr 25 mg PO DAILY Qty: 90 3RF pregabalin 200 mg capsule 200 mg PO BID Qty: 60 5RF hydromorphone 8 mg tablet 8 mg PO Q4H MDD 6 tabs per day PRN (Reason: Pain) 30 Days Qty: 180 0RF Hold Instructions: Resume on 06/16/20. donot take with tylenol with codiene Discharge Orders: Discharge Order (Routine); Ordered 03/31/24 Ordered By: Daryl Caldera Referrals: Kayode Schilling, [Primary Care Provider] - (We have notified your physician's clinic of the need for a follow-up appointment to be scheduled. If you have not heard from them within the next 2 business days, please call them directly. ) Discharge Diet: Cardiac and Diabetic Discharge Activity: Resume usual activity and Increase activity as tolerated Patient Instructions: Metoprolol (By mouth), Sucralfate (By mouth) (Carafate), Fluconazole (By mouth), Losartan (By mouth), Pantoprazole (By mouth), Pregabalin (By mouth), Cholecalciferol (By mouth) (D-3, Nature's Blend Super Strength..., Urinary Tract Infection in Women (DC), Kidney Infection (DC), Opioid Safety Activity Restrictions/Additional Instructions: Goal blood pressure less than 140/90 mmHg. Losartan 25 mg oral has been added to your medication list. Please check your blood pressure daily at home maintain a blood pressure diary and follow-up with a primary care provider within next 1 week for further adjustment of antihypertensive. Dose of pregabalin has been decreased to 100 mg twice daily given excessive lethargy. Diflucan is the antifungal which is supposed to take for next 1 week along with Levaquin is the antibiotic for next 3 days. Please follow-up with urologist for cystoscopy. Please follow-up with your orthopedic surgeon at [facility] for further evaluation and management of fracture of right around the prosthesis. Discharge Attestations Time Spent in Discharge Care*: greater than 30 min Specific Discharge Activities: educating patient, educating and/or supporting family/caregiver, discussing with pcp/other providers, discussing with case picker/social workers/dc planners, documenting/other paperwork and evaluating patient/reviewing data Status at Discharge: Cognitive status at discharge: cognitively intact , Behavioral status at discharge: cooperative , Functional status at discharge: wheelchair bound , Overall status at discharge: patient is back to baseline Quality Metrics Clinical Quality Measures [ No reported AMI, CVA or VTE this stay] Coding Level of Care Code 42227 Total time (in minutes) for Discharge: 60 Diagnoses Complicated UTI (urinary tract infection) N39.0 Nausea and vomiting R11.2 Tachycardia R00.0
[2024-03-31 11:21] VITALS: BP 163/93; PULSE 110; RESP 17; TEMP 37.3; O2SAT 96
[2024-04-01 13:35] LABS: Vit D 1,25 (Oh)2, Total 34 pg/mL (18-72); Vit D2 1,25 (Oh)2 <8 pg/mL; Vit D3 1,25 (Oh)2 34 pg/mL
[2024-04-08 16:23] LABS: PTH Related Peptide (Protein) 5 pg/mL (11-20)
== END 2024-03-31 11:23 | disposition home or self-care (01) | DRG 872 ==
LOC: ER 20:31 → MEDSURG 23:30
PROVIDERS: Admitting Provider Internal Medicine; Emergency Provider Emergency Medicine; PCP Family Medicine; Visit Provider Student in an Organized Health Care Education/Training Program
DX: A41.9 Sepsis, unspecified organism (principal); N39.0 Urinary tract infection, site not specified; N17.9 Acute kidney failure, unspecified; E87.20 Acidosis, unspecified; D84.9 Immunodeficiency, unspecified; R65.20 Severe sepsis without septic shock; E11.9 Type 2 diabetes mellitus without complications; R06.82 Tachypnea, not elsewhere classified; K80.20 Calculus of gallbladder without cholecystitis without obstruction; E55.9 Vitamin D deficiency, unspecified; S42.301D Unspecified fracture of shaft of humerus, right arm, subsequent encounter for fracture with routine healing; X58.XXXD Exposure to other specified factors, subsequent encounter; E86.0 Dehydration; R03.0 Elevated blood-pressure reading, without diagnosis of hypertension; Z87.81 Personal history of (healed) traumatic fracture; Z79.4 Long term (current) use of insulin; Z79.82 Long term (current) use of aspirin; Z87.440 Personal history of urinary (tract) infections
CPT/HCPCS: 36415; 36416; 71045; 74176; 80053; 81003; 81015; 82009; 82306; 82310; 82542; 82607; 82652; 82746; 82962; 83036; 83540; 83550; 83605; 83735; 83970; 84100; 85025; 87040; 87086; 87106; 87426; 87486; 87581; 87633; 93005; 96372; 96374; 96375; 99285; G0378; J0696; J1650; J1815; J2405; J2470; J2543; J2765; J7030; J7120

== ENCOUNTER → 2024-04-12 09:38 | Outpatient (BNVA) | payer BC, SELFPAY | PROVIDERS: PCP Family Medicine; Visit Provider Family Medicine | DX: N39.0 Urinary tract infection, site not specified (principal) | CPT/HCPCS: 81000; 87086 ==

== ENCOUNTER → 2024-05-17 11:07 | Outpatient (BNVA) | payer BC, SELFPAY | PROVIDERS: PCP Family Medicine; Visit Provider Family Medicine | DX: N39.0 Urinary tract infection, site not specified (principal) | CPT/HCPCS: 81000; 87086 ==

== ENCOUNTER → 2024-06-14 10:54 | Outpatient (BNVA) | payer BC, SELFPAY | PROVIDERS: PCP Family Medicine; Visit Provider Family Medicine | DX: N39.0 Urinary tract infection, site not specified (principal) | CPT/HCPCS: 81000; 87086 ==

== ENCOUNTER → 2024-06-27 14:18 | Outpatient (BNVA) | payer BC, SELFPAY | PROVIDERS: PCP Family Medicine; Visit Provider Family Medicine | DX: N39.0 Urinary tract infection, site not specified (principal) | CPT/HCPCS: 81000; 87086 ==

== ENCOUNTER → 2024-07-12 12:13 | Outpatient (BNVA) | payer BC, SELFPAY | PROVIDERS: PCP Family Medicine; Visit Provider Family Medicine | DX: N39.0 Urinary tract infection, site not specified (principal) | CPT/HCPCS: 81000 ==

== ENCOUNTER → 2024-10-04 11:52 | Outpatient (BNVA) | payer BC, SELFPAY | PROVIDERS: PCP Family Medicine; Visit Provider Family Medicine | DX: N39.0 Urinary tract infection, site not specified (principal); E11.9 Type 2 diabetes mellitus without complications; J84.10 Pulmonary fibrosis, unspecified; G47.00 Insomnia, unspecified; R51.9 Headache, unspecified; R53.1 Weakness; E03.9 Hypothyroidism, unspecified; R79.89 Other specified abnormal findings of blood chemistry | CPT/HCPCS: 80053; 80061; 81000; 82607; 83036; 83735; 84443; 85025 ==

== ENCOUNTER → 2024-10-28 10:03 | Outpatient (BNVA) | payer BC, SELFPAY | PROVIDERS: PCP Family Medicine; Visit Provider Family Medicine | DX: N39.0 Urinary tract infection, site not specified (principal); E11.9 Type 2 diabetes mellitus without complications | CPT/HCPCS: 80053; 81000; 85025 ==

== ENCOUNTER → 2024-12-05 10:45 | Outpatient (BNVA) | payer BC, SELFPAY | PROVIDERS: PCP Family Medicine; Visit Provider Family Medicine | DX: N39.0 Urinary tract infection, site not specified (principal); R00.0 Tachycardia, unspecified; E11.9 Type 2 diabetes mellitus without complications; G89.29 Other chronic pain; L03.90 Cellulitis, unspecified | CPT/HCPCS: 81000 ==

== ENCOUNTER → 2024-12-13 12:52 | Outpatient (BNVA) | payer BC, SELFPAY | PROVIDERS: PCP Family Medicine; Visit Provider Family Medicine | DX: N39.0 Urinary tract infection, site not specified (principal) | CPT/HCPCS: 81000; 87086 ==

== ENCOUNTER → 2025-01-03 13:23 | Outpatient (BNVA) | payer BC, SELFPAY | PROVIDERS: PCP Family Medicine; Visit Provider Family Medicine | DX: N39.0 Urinary tract infection, site not specified (principal) | CPT/HCPCS: 81000; 87086 ==

== ENCOUNTER → 2025-01-24 14:02 | Outpatient (BNVA) | payer BC, SELFPAY | PROVIDERS: PCP Family Medicine; Visit Provider Family Medicine | DX: N39.0 Urinary tract infection, site not specified (principal) | CPT/HCPCS: 81000; 87086 ==

== ENCOUNTER → 2025-02-20 10:00 | Outpatient (BNVA) | payer MEDICARE, SELFPAY | PROVIDERS: PCP Family Medicine; Visit Provider Family Medicine | DX: N30.01 Acute cystitis with hematuria (principal); R53.1 Weakness | CPT/HCPCS: 81003; 87086 ==

== ENCOUNTER → 2025-03-14 11:17 | Outpatient (BNVA) | payer MEDICARE, SELFPAY | PROVIDERS: PCP Family Medicine; Visit Provider Family Medicine | DX: N39.0 Urinary tract infection, site not specified (principal) | CPT/HCPCS: 81000; 87086 ==

== ENCOUNTER 2025-04-26 10:26 | Outpatient (RCR) | payer MEDICARE, SELFPAY | END 2025-05-09 23:59 | disposition home or self-care (01) | LOC: SPT 10:26 | PROVIDERS: Visit Provider Orthopaedic Surgery Adult Reconstructive Orthopaedic Surgery | DX: S42.201D Unspecified fracture of upper end of right humerus, subsequent encounter for fracture with routine healing (principal); X58.XXXD Exposure to other specified factors, subsequent encounter | CPT/HCPCS: 97110; 97161 ==

== ENCOUNTER 2025-05-10 05:00 | Outpatient (RCR) | payer MEDICARE, SELFPAY | END 2025-06-09 23:59 | disposition home or self-care (01) | LOC: SPT 05:00 | PROVIDERS: Visit Provider Orthopaedic Surgery Adult Reconstructive Orthopaedic Surgery | DX: S42.201D Unspecified fracture of upper end of right humerus, subsequent encounter for fracture with routine healing (principal); X58.XXXD Exposure to other specified factors, subsequent encounter | CPT/HCPCS: 97110 ==

== ENCOUNTER → 2025-05-25 10:18 | Outpatient (BNVA) | payer MEDICARE, SELFPAY | PROVIDERS: PCP Family Medicine; Visit Provider Family Medicine | DX: K21.9 Gastro-esophageal reflux disease without esophagitis (principal); E11.9 Type 2 diabetes mellitus without complications; R11.0 Nausea; N39.0 Urinary tract infection, site not specified; G89.29 Other chronic pain | CPT/HCPCS: 80053; 80061; 81000; 83036; 85025; 87086 ==

== ENCOUNTER 2025-06-10 05:00 | Outpatient (RCR) | payer MEDICARE, SELFPAY | END 2025-07-09 23:59 | disposition home or self-care (01) | LOC: SPT 05:00 | PROVIDERS: PCP Family Medicine; Visit Provider Orthopaedic Surgery Adult Reconstructive Orthopaedic Surgery | DX: S42.201D Unspecified fracture of upper end of right humerus, subsequent encounter for fracture with routine healing (principal); X58.XXXD Exposure to other specified factors, subsequent encounter | CPT/HCPCS: 97110 ==

== ENCOUNTER 2025-07-10 05:00 | Outpatient (RCR) | payer MEDICARE, SELFPAY | END 2025-07-26 08:49 | disposition home or self-care (01) | LOC: SPT 05:00 | PROVIDERS: PCP Family Medicine; Visit Provider Orthopaedic Surgery Adult Reconstructive Orthopaedic Surgery | DX: S42.201D Unspecified fracture of upper end of right humerus, subsequent encounter for fracture with routine healing (principal); X58.XXXD Exposure to other specified factors, subsequent encounter | CPT/HCPCS: 97110 ==